=== PATIENT | female | born 1965 | race Caucasian/White ===

== ENCOUNTER 2019-08-26 08:46 | Outpatient (CLI) | payer OTHER, SELFPAY ==
--- NOTE | ~2019-08-26 | MM_ITS ---
EXAMINATION: MM screening [facility] BI w terri HISTORY: Screening mammogram TECHNIQUE: Craniocaudal and mediolateral oblique 3-D tomosynthesis images were obtained and synthetic 2-D images were generated. CAD analysis was submitted and interpreted. COMPARISON: 08/14/2018, 07/08/2017, 07/04/2016 BREAST PARENCHYMAL COMPOSITION: The breasts are almost entirely fatty. FINDINGS: There is no evidence of suspicious mass, calcification, or architectural distortion to sugg est malignancy in either breast. There has been no suspicious interval change. IMPRESSION: 1. No mammographic evidence of malignancy. 2. Recommend routine screening mammography in one year. 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 [employer]
== END 2019-08-26 08:47 | disposition home or self-care (01) ==
PROVIDERS: PCP Family Medicine; Visit Provider Obstetrics & Gynecology
DX: Z12.31 Encounter for screening mammogram for malignant neoplasm of breast (principal)
CPT/HCPCS: 77063; 77067

== ENCOUNTER 2019-09-03 11:17 | Emergency (ER) | payer OTHER, SELFPAY ==
[2019-09-03 11:53] VITALS: BP 109/63; PULSE 66; RESP 20; TEMP 37.2; O2SAT 98
--- NOTE | 2019-09-03 12:34 | ED.URI ---
HPI - URI/Sore Throat General Chief Complaint: Upper Respiratory Infection Stated Complaint: Cold/Flu symptoms Time Seen by Provider: 09/03/19 12:34 Source: patient Mode of arrival: ambulatory History of Present Illness HPI Narrative: Patient presents with a 3-day history of nasal congestion cough fever generalized body aches. Patient states her grandson had influenza A 5 days ago is worried that she may have the flu. No shortness of breath no chest pain. Patient has not taken thing [id number] for symptoms. Patient states she is a normally healthy individual. MD elicited complaint: fever, cough and nasal congestion Related Data Home Medications Medication Instructions Recorded Confirmed aspirin [Adult Low Dose Aspirin] 81 mg PO DAILY 05/12/19 09/03/19 clonazepam [Klonopin] 1 mg PO BID 05/12/19 05/12/19 estradiol 2 mg PO DAILY 05/12/19 09/03/19 flecainide 100 mg PO Q12H 05/12/19 09/03/19 magnesium 500 mg PO DAILY 05/12/19 09/03/19 alprazolam [Xanax] 1 mg PO TID PRN 09/03/19 09/03/19 Allergies Allergy/AdvReac Type Severity Reaction Status Date / Time azithromycin [From Zithromax] AdvReac Other Verified 09/03/19 11:50 Review of Systems Review of Systems: Narrative: CONSTITUTIONAL: Denies chills, or sweats. Reports fever and generalized body aches EYES: Denies visual changes, redness, or discharge. ENT: Denies otalgia. Reports nasal congestion runny nose and sore throat CARDIOVASCULAR: Denies chest pain, palpitations, or edema. RESPIRATORY: Denies dyspnea. Reports occasional cough GASTROINTESTINAL: Denies abdominal pain, nausea, vomiting, or diarrhea. GENITOURINARY: Denies dysuria or hematuria. SKIN: Denies rash or itching. MUSCULOSKELETAL: Denies back pain, joint pain, or myalgia. Reports generalized body aches NEUROLOGIC: Denies headache, numbness, or weakness. PSYCHIATRIC: Denies anxiety or depression. [facility] Social History Social History Smoking status: Never smoker Alcohol intake: never Comments At time of signature, agree with nursing past medical, surgical, social and family history. There is no relevant family history pertinent to the presenting complaint Exam Narrative: Exam Narrative: GENERAL APPEARANCE: The patient is a well-developed, well-nourished , in no acute distress. SKIN: Skin is warm and dry without erythema, swelling or exudate. There is good turgor. No tenting. HEAD: Atraumatic. Normocephalic. No temporal or scalp tenderness. EYES: Moist and bright. Sclera and conjunctivae normal. No discharge. PERRLA. Extraocular motions intact. Gross visual acuity intact. EARS: Pinna is normal shape and contour. Clear external auditory canals. TM pearly soliz with good cone of light, no erythema or suppuration. Bilateral cerumen noted no gross hearing deficit. NOSE: pink, moist mucosa with good air movement. Clear rhinorrhea without nasal flaring. Septum midline. Mouth: moist mucous membranes. THROAT; mild erythema noted to posterior oropharynx with moderate postnasal drainage. Without exudate or ulceration.. Uvula midline. Normal movement of soft palate. NECK: Supple and nontender with full range of motion without discomfort. No meningeal signs. LUNGS: Equal and bilateral breath sounds without wheezes, rales or rhonchi. CHEST: The chest wall is without retractions or use of accessory muscles. HEART: Has a regular rate and rhythm without murmur, gallops, click or rub. ABDOMEN: Soft, nontender with positive active bowel sounds. No rebound tenderness. EXTREMITIES: Without cyanosis, clubbing or edema. Equal 2+ distal pulses and 2 second capillary refill noted. NEUROLOGIC: alert, active, developmentally normal for age. The patient moves all extremities with normal muscle strength. Normal muscle tone is noted. Normal coordination is noted. NO focal neurological findings noted. Course Vital Signs Vital signs: Vital Signs Temperature 37.2 C 09/03/19 1
== END 2019-09-03 13:20 | disposition home or self-care (01) ==
PROVIDERS: Emergency Provider Nurse Practitioner Family; PCP Family Medicine
DX: B34.9 Viral infection, unspecified (principal); J06.9 Acute upper respiratory infection, unspecified; F41.9 Anxiety disorder, unspecified
CPT/HCPCS: 87804; 99213; G0463

== ENCOUNTER 2020-02-05 12:59 | Emergency (ER) | payer OTHER, SELFPAY ==
--- NOTE | ~2020-02-05 | CT_ITS ---
EXAMINATION: CT abdomen pelvis wo con EXAM DATE: 02/05/2020 13:53 INDICATION: Right flank pain, hematuria. TECHNIQUE: Spiral CT of the abdomen and pelvis was performed without contrast. Axial, coronal and sag ittal images were reviewed. The dose-length product (DLP) for this examination was 176.76 mGy-cm. T he exposure was tailored according to patient size (auto mA exposure control), and iterative reconstr uction (ASIR) was used as additional dose reduction technique. Comparison is made to prior examinatio n from 10/27/2017. FINDINGS: There is no nephrolithiasis or hydronephrosis. The uterus is not identified and has likel y been surgically resected. The bladder is unremarkable. The liver, spleen, adrenal glands and panc reas are unremarkable. Gallbladder is unremarkable. No biliary obstruction. There is no retroperit mcneil or pelvic lymphadenopathy. The appendix is normal. There is mild sigmoid colonic diverticulosis. There is no adjacent inflammat ory change to suggest diverticulitis. The stomach and small bowel are unremarkable. There is expecte d amount of colonic stool. No free intraperitoneal gas. The heart is normal in size. There are n o pericardial or pleural effusions. The lung bases are unremarkable. The bones are unremarkable. IMPRESSION: 1. No nephrolithiasis, hydronephrosis or acute intra-abdominal findings. 2. Mild sigmoid diverticulosis. Reviewed, dictated and finalized at location A.
[2020-02-05 13:03] VITALS: BP 118/65; PULSE 94; RESP 18; TEMP 36.8; O2SAT 98
[2020-02-05 13:57] LABS: Basophils Percent Auto 0.5 % (0.2-1.2); Eosinophils Absolute Auto 0.1 K/mm3 (0-0.3); Eosinophils Percent Auto 1.2 % (0-4.4); Hematocrit 41.7 % (37.0-47.0); Hemoglobin 13.7 g/dL (12.0-15.0); Immature Granulocyte Absolute 0.01 K/mm3 (0.00-0.031); Immature Granulocyte Percent A 0.2 % (0-0.5); Lymphocytes Absolute Auto 2.01 K/mm3 (0.9-3.2); Lymphocytes Percent Auto 33.1 % (18.3-44.2); Mean Corpuscular HGB Conc 32.9 g/dl (32-36); Mean Corpuscular Hemoglobin 30.2 pg (26-34); Mean Corpuscular Volume 91.9 fl (80-100); Mean Platelet Volume 9.6 fl (7.4-10.4); Monocytes Absolute Auto 0.4 K/mm3 (0.1-0.6); Monocytes Percent Auto 7.2 % (2.6-8.5); Neutrophils Absolute Auto 3.5 K/mm3 (1.3-6.7); Neutrophils Percent Auto 57.8 % (45.5-73.1); Platelet Count Result 242 k/mm3 (150-375); Red Blood Count 4.54 M/mm3 (4.2-5.4); Red Cell Distribution Width 12.3 % (11.5-14.5); White Blood Count 6.1 K/mm3 (4.5-10.0)
[2020-02-05 14:04] LABS: Add Urine Microscopic? NO; Appearance Urine Clear (Clear); Bilirubin Urine Negative (Negative); Blood Urine Negative (Negative); Color Urine Straw (Yellow); Glucose Urine UA Negative (Negative); Ketones Urine Negative (Negative); Leukocyte Esterase Ur Negative LEU/UL (Negative); Nitrate Urine Negative (Negative); Protein Urine Negative (Negative); RBC Urine 0-2 /hpf (0-2); Squamous Epithelial Cell Urine Many /hpf (Few); Urobilinogen Urine Negative mg/dL (<2.0); WBC Urine 0-3 /hpf
[2020-02-05 14:11] LABS: Alanine Aminotransferase 19 U/L (4-35); Albumin Level 4.4 g/dL (3.5-5.1); Alkaline Phosphatase 61 U/L (38-126); Anion Gap 10.1 mmol/L (7-16); Aspartate Amino Transferase 30 U/L (14-36); Bilirubin,Total 0.4 mg/dL (0.2-1.3); Blood Urea Nitrogen 16 mg/dL (7-17); Calcium 9.4 mg/dL (8.4-10.2); Carbon Dioxide 30 mmol/L (22-30); Chloride 100 mmol/L (98-107); Estimated CRCL calculation 69 ml/min; Estimated Glomerular Filt Rate > 60; Glucose 92 mg/dL (65-105); Potassium 4.1 mmol/L (3.4-5.0); Sodium 136 mmol/L (137-145)
--- NOTE | 2020-02-05 14:40 | ED.GENADULT ---
HPI - General Adult General Chief complaint: Back Pain/Injury Stated complaint: back pain/urinating blood Time Seen by Provider: 02/05/20 13:35 Source: patient Mode of arrival: ambulatory Limitations: no limitations History of Present Illness HPI narrative: Patient presents with chief complaint of right flank pain and 4 episodes of blood in her urine that began yesterday. Patient states that she did not note any signs of blood in her urine prior to arrival. Patient states that she was moving at work and noticed the pain to her right side and with twisting and turning. Patient denies having a history of kidney stones. Patient reports that she has had a hysterectomy so she no longer has menstrual cycles. Patient denies fever, chills, nausea, vomiting, diarrhea or cough. Patient denies eating or drinking anything that she believes could have caused her symptoms. Patient denies taking Azo or any new medications that could affect her urine color. Related Data Home Medications Medication Instructions Recorded Confirmed aspirin [Adult Low Dose Aspirin] 81 mg PO DAILY 05/12/19 09/03/19 estradiol 2 mg PO DAILY 05/12/19 09/03/19 flecainide 100 mg PO Q12H 05/12/19 09/03/19 magnesium 500 mg PO DAILY 05/12/19 09/03/19 alprazolam [Xanax] 1 mg PO TID PRN 09/03/19 09/03/19 clonazepam 1 mg tablet 1.5 mg PO BID tablet 09/08/19 Allergies Allergy/AdvReac Type Severity Reaction Status Date / Time azithromycin [From Zithromax] AdvReac Other Verified 02/05/20 13:36 Review of Systems Review of Systems: Narrative: CONSTITUTIONAL: Denies fever, chills, or sweats. EYES: Denies visual changes, redness, or discharge. ENT: Denies rhinorrhea, congestion, sore throat, or otalgia. CARDIOVASCULAR: Denies chest pain, palpitations, or edema. RESPIRATORY: Denies cough or dyspnea. GASTROINTESTINAL: Denies abdominal pain, nausea, vomiting, or diarrhea. GENITOURINARY: Denies dysuria reports resolved hematuria. SKIN: Denies rash or itching. MUSCULOSKELETAL: Reports back pain, denies joint pain, or myalgia. NEUROLOGIC: Denies headache, numbness, dizziness, or weakness. PSYCHIATRIC: Denies anxiety or depression. PMFSH Past Medical History Medical History (Updated 02/05/20 @ 14:45 by Vasu Li PA-C) Anal skin tag Chronic insomnia Depression Diverticulosis PARISH (generalized anxiety disorder) Social History Social History (Updated 09/08/19 @ 09:36 by Nancie Alvares [facility]) Smoking status: Current every day smoker Tobacco type: e-cigarettes/vaping Alcohol intake: never Substance use: never Exam Narrative: Exam Narrative: GENERAL: Well-appearing, well-nourished, and in no acute distress. HEAD: Normocephalic, atraumatic. EYES: PERRLA and EOMI. ENT: Nares clear, no rhinorrhea or epistaxis. Mucous membranes moist. Oropharynx without tonsillar hypertrophy exudate or other lesions. Bilateral TMs pearly mancera nonbulging NECK: Supple. No adenopathy or masses. CHEST: Clear to auscultation. No respiratory distress. No wheezes rales or rhonchi HEART: Regular rate and rhythm. ABDOMEN: Soft, nontender, nondistended, normal active bowel sounds. BACK: Pain elicited with manipulation of right lumbar paraspinal muscles. No outward signs of injury. EXTREMITIES: normal range of motion. No edema. SKIN: Warm, dry, no rash. NEURO: No focal deficits. Alert and oriented x3. PSYCH: Normal mood and affect. Course Vital Signs Vital signs: Vital Signs Temperature 98.2 F 02/05/20 13:03 Pulse Rate 94 02/05/20 13:03 Respiratory Rate 18 02/05/20 13:03 Blood Pressure 118/65 02/05/20 13:03 Pulse Oximetry 98 02/05/20 13:03 Temperature 97.7 F 02/05/20 15:29 Pulse Rate 55 L 02/05/20 15:29 Respiratory Rate 18 02/05/20 15:29 Blood Pressure 88/53 L 02/05/20 15:29 Pulse Oximetry 98 02/05/20 15:29 Medical Decision Making MDM Narrative Medical decision making narrative: There is no signs of bladder infection in patient's uri
[2020-02-05 15:29] VITALS: BP 88/53; PULSE 55; RESP 18; TEMP 36.5; O2SAT 98
== END 2020-02-05 15:31 | disposition home or self-care (01) ==
PROVIDERS: Physician Assistant; Emergency Provider Emergency Medicine; PCP Family Medicine
DX: S39.012A Strain of muscle, fascia and tendon of lower back, initial encounter (principal); F51.04 Psychophysiologic insomnia; F32.9 Major depressive disorder, single episode, unspecified; F41.1 Generalized anxiety disorder; K57.30 Diverticulosis of large intestine without perforation or abscess without bleeding; X58.XXXA Exposure to other specified factors, initial encounter
CPT/HCPCS: 36415; 74176; 80053; 81003; 85025; 99284

== ENCOUNTER 2020-04-20 08:03 | Outpatient (NON) | payer OTHER, SELFPAY ==
[2020-04-20 18:25] LABS: SARS-CoV-2 RNA PCR Negative
== END 2020-04-20 08:04 ==
PROVIDERS: PCP Family Medicine; Visit Provider Family Medicine
DX: R53.83 Other fatigue (principal); R19.7 Diarrhea, unspecified; Z20.828 Contact with and (suspected) exposure to other viral communicable diseases
CPT/HCPCS: 87635; C9803; U0003

== ENCOUNTER 2020-08-27 08:41 | Outpatient (CLI) | payer OTHER, SELFPAY ==
--- NOTE | ~2020-08-27 | MM_ITS ---
EXAMINATION: MM screening [facility] BI w terri HISTORY: Screening mammogram TECHNIQUE: Craniocaudal and mediolateral oblique 3-D tomosynthesis images were obtained and synthetic 2-D images were generated. CAD analysis was submitted and interpreted. COMPARISON: 08/26/2019, 08/14/2018, 07/25/2017 BREAST PARENCHYMAL COMPOSITION: The breasts are almost entirely fatty. FINDINGS: There is no evidence of suspicious mass, calcification, or architectural distortion to sugg est malignancy in either breast. There has been no suspicious interval change. IMPRESSION: 1. No mammographic evidence of malignancy. 2. Recommend routine screening mammography in one year. 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
== END 2020-08-27 08:42 | disposition home or self-care (01) ==
PROVIDERS: PCP Family Medicine; Visit Provider Obstetrics & Gynecology
DX: Z12.31 Encounter for screening mammogram for malignant neoplasm of breast (principal)
CPT/HCPCS: 77063; 77067

== ENCOUNTER 2020-11-20 10:16 | Outpatient (CLI) | payer OTHER, SELFPAY ==
--- NOTE | ~2020-11-20 | XR_ITS ---
EXAMINATION: XR abdomen/kub 1V INDICATION: Constipation, unspecified TECHNIQUE: Supine views of the abdomen were obtained on 2 radiographs. COMPARISON: None FINDINGS: There are no dilated loops of bowel. A moderate volume of colonic stool is present. There i s mild lumbar spondylosis. The visualized lung bases are clear. IMPRESSION: 1. Constipation. Reviewed, dictated and finalized at location A. IMPRESSION: 1. Constipation.
== END 2020-11-20 10:17 ==
PROVIDERS: PCP Family Medicine; Visit Provider Family Medicine
DX: K59.00 Constipation, unspecified (principal)
CPT/HCPCS: 74018

== ENCOUNTER 2020-11-27 10:49 | Outpatient (CLI) | payer OTHER, SELFPAY ==
--- NOTE | ~2020-11-27 | CT_ITS ---
EXAMINATION: CT abdomen pelvis w con DATE: 11/27/2020 11:21 INDICATION: Abdominal pain. Constipation. TECHNIQUE: Computed tomography (CT) of the abdomen and pelvis was performed with 100 mL Omnipaque 350 intravenous contrast. Automated exposure control and iterative reconstruction technique were employe d. The dose-length product was 325.64 mGy-cm. COMPARISON: CT abdomen and pelvis 02/05/2020 FINDINGS: The visualized portions of the lung bases demonstrate mild atelectasis. No pleural effusion . The heart size is normal. No pericardial effusion. The liver, gallbladder, spleen, pancreas, adrena l glands, and kidneys are normal. There are no dilated loops of bowel. The appendix is normal. There are no pathologically enlarged lymph nodes. There is no free intraperitoneal fluid. There is mild lum bar spondylosis. IMPRESSION: 1. No etiology for the patient's symptoms. Reviewed, dictated and finalized at location B.
[2020-11-27 11:48] LABS: Basophils Percent Auto 0.8 % (0.2-1.2); Eosinophils Absolute Auto 0.1 K/mm3 (0-0.3); Eosinophils Percent Auto 2.3 % (0-4.4); Hematocrit 41.8 % (37.0-47.0); Hemoglobin 13.5 g/dL (12.0-15.0); Immature Granulocyte Absolute 0.01 K/mm3 (0.00-0.031); Immature Granulocyte Percent A 0.2 % (0-0.5); Lymphocytes Absolute Auto 2.15 K/mm3 (0.9-3.2); Lymphocytes Percent Auto 44.6 % (18.3-44.2); Mean Corpuscular HGB Conc 32.3 g/dl (32-36); Mean Corpuscular Hemoglobin 29.9 pg (26-34); Mean Corpuscular Volume 92.7 fl (80-100); Mean Platelet Volume 9.3 fl (7.4-10.4); Monocytes Absolute Auto 0.5 K/mm3 (0.1-0.6); Monocytes Percent Auto 9.5 % (2.6-8.5); Neutrophils Absolute Auto 2.1 K/mm3 (1.3-6.7); Neutrophils Percent Auto 42.6 % (45.5-73.1); Platelet Count Result 258 k/mm3 (150-375); Red Blood Count 4.51 M/mm3 (4.2-5.4); Red Cell Distribution Width 12.1 % (11.5-14.5); White Blood Count 4.8 K/mm3 (4.5-10.0)
[2020-11-27 12:13] LABS: Alanine Aminotransferase 19 U/L (4-35); Albumin Level 4.2 g/dL (3.5-5.1); Alkaline Phosphatase 49 U/L (38-126); Amylase 60 U/L (30-110); Anion Gap 6 mmol/L (8-16); Aspartate Amino Transferase 34 U/L (14-36); Bilirubin,Total 0.2 mg/dL (0.2-1.3); Blood Urea Nitrogen 10 mg/dL (7-17); Carbon Dioxide 29 mmol/L (22-30); Chloride 104 mmol/L (98-107); Estimated Glomerular Filt Rate > 60; Glucose 93 mg/dL (65-105); Lipase 116 U/L (23-300); Potassium 4.3 mmol/L (3.4-5.0); Sodium 139 mmol/L (137-145)
== END 2020-11-27 10:50 | disposition home or self-care (01) ==
PROVIDERS: PCP Family Medicine; Visit Provider Physician Assistant
DX: R10.9 Unspecified abdominal pain (principal); K59.00 Constipation, unspecified
CPT/HCPCS: 36415; 74177; 80053; 82150; 83690; 84443; 85025; Q9967

== ENCOUNTER → 2020-11-29 01:48 | Outpatient (CLI) | payer OTHER, SELFPAY ==
[2020-11-29 17:40] LABS: SARS-CoV-2 RNA PCR Negative
== END ==
PROVIDERS: PCP Family Medicine; Visit Provider Obstetrics & Gynecology
DX: Z01.812 Encounter for preprocedural laboratory examination (principal); Z20.822 Contact with and (suspected) exposure to COVID-19
CPT/HCPCS: C9803; U0003; U0005

== ENCOUNTER 2020-11-29 07:41 | Outpatient (CLI) | payer OTHER, SELFPAY | END 2020-11-29 07:42 | disposition home or self-care (01) | LOC: ANHSURGERY 07:44 | PROVIDERS: PCP Family Medicine; Visit Provider Obstetrics & Gynecology | DX: Z01.812 Encounter for preprocedural laboratory examination (principal); N83.209 Unspecified ovarian cyst, unspecified side | CPT/HCPCS: 36415; 86850; 86900; 86901 ==

== ENCOUNTER 2020-11-30 01:26 | Day surgery (SDC) | payer OTHER, SELFPAY ==
[2020-11-28 14:03] VITALS: BMI 22.7
--- NOTE | 2020-11-29 12:39 | PM.IMHP ---
H&P: HPI History of Present Illness Date/Time: 11/29/20 12:39 55-year-old female status post cyst an RSO admitted for laparoscopic LSO. She has pain discomfort and dyspareunia. She had a CT which was negative but her pain is directly under left ovary. She is postmenopausal. Risks and benefits of this procedure reviewed in full Chief Complaint: pelvic pain Review of Systems Review of Systems: All systems reviewed & are unremarkable except as noted in HPI and below PMFSH Past Medical History Medical History Anal skin tag Chronic insomnia Depression Diverticulosis PARISH (generalized anxiety disorder) Social History Social History Smoking status: Current every day smoker Tobacco type: e-cigarettes/vaping Second hand tobacco smoke exposure: No Alcohol intake: never Substance use: never Substance use type: does not use Gender identity (if verbalized by the patient): Female Spiritual care concerns: No Meds Home Medications and Allergies Home Medications Medication Instructions Recorded Confirmed Type aspirin [Adult Low Dose Aspirin] 81 mg PO DAILY 05/12/19 11/28/20 History estradiol 2 mg PO DAILY 05/12/19 11/28/20 History flecainide 100 mg PO BID 05/12/19 11/28/20 History magnesium 500 mg PO DAILY 05/12/19 11/28/20 History alprazolam [Xanax] 1 mg PO TID PRN 09/03/19 11/28/20 History loratadine [Claritin] 10 mg PO DAILY 14 Days #14 tablet 09/03/19 11/28/20 Rx clonazepam 1 mg tablet 1.5 mg PO HS tablet 09/08/19 11/28/20 History multivitamin 1 tablet PO DAILY 11/28/20 11/28/20 History polyethylene glycol 3350 [Miralax] 17 g PO DAILY 11/28/20 11/28/20 History Allergies Allergy/AdvReac Type Severity Reaction Status Date / Time azithromycin [From Zithromax] AdvReac Other Verified 11/28/20 14:00 Exam Const: General: no acute distress Eyes: General: appearance normal, both eyes and all related structures Neck: Neck: supple and no JVD Thyroid: thyroid normal Resp: Effort & Inspection: normal respiratory effort Auscultation: clear to auscultation bilaterally Cardio: Rate: regular rate Rhythm: regular rhythm GI: Inspection: non-distended GI Palp: Yes Soft to palpation, No Tenderness to palpation present (GI) and No Guarding due to palpation present (GI) Auscultation: normal bowel sounds : External Female Exam: normal external appearance Speculum Exam - Vagina: normal appearance of the vagina Speculum Exam - Cervix: Cervix absent Bimanual exam- vagina & uterus: uterus absent Bimanual Exam- Adnexa, other: tender on the left Skin: General skin exam: no rashes or lesions noted Extrem: General: normal to inspection and no edema Psych: Mental Status: mental status grossly normal Affect: normal affect Assessment and Plan Additional Plan impression: Pelvic pain Plan: Laparoscopic LSO
[2020-11-30] VITALS (7 sets, daily range): BP systolic 98–129; BP diastolic 54–69; PULSE 63–80; RESP 11–16; TEMP 36.5–36.6; O2SAT 100; BMI 23.5
--- NOTE | 2020-11-30 06:28 | WPDHPUPDATE1 ---
History and Physical Update Update Date/Time: 11/30/20 06:28 History and Physical has been reviewed, including an updated exam of the patient. There are NO changes in the patient's condition. Risks, benefits, and alternatives have been discussed and questions answered. Patient agrees to proceed with procedure.
--- NOTE | 2020-11-30 13:13 | WPDANESEPPF ---
Anes - Initial Pre Proc Eval Procedure: Operation Date: 11/30/20 14:45 Proposed Procedures p Diagnostic Laparoscopy With Left Salpingo Oophorectomy - Michael Macdonald MD Date/Time: 11/30/20 13:13 Surgeon: Michael Macdonald MD Pre Op Diagnosis: pelvic pain, left ovarian cyst Patient Data Age: 55 Gender: F Height: 5 ft 6.5 in Weight: 64.86 kg Allergies Allergy/AdvReac Type Severity Reaction Status Date / Time azithromycin [From Zithromax] AdvReac Other Verified 11/28/20 14:00 Home Medications Medication Instructions Recorded Confirmed Type aspirin [Adult Low Dose Aspirin] 81 mg PO DAILY 05/12/19 11/30/20 History estradiol 2 mg PO DAILY 05/12/19 11/30/20 History flecainide 100 mg PO BID 05/12/19 11/30/20 History magnesium 500 mg PO DAILY 05/12/19 11/30/20 History alprazolam [Xanax] 1 mg PO TID PRN 09/03/19 11/30/20 History loratadine [Claritin] 10 mg PO DAILY 14 Days #14 tablet 09/03/19 11/30/20 Rx clonazepam 1 mg tablet 1.5 mg PO HS tablet 09/08/19 11/30/20 History multivitamin 1 tablet PO DAILY 11/28/20 11/30/20 History polyethylene glycol 3350 [Miralax] 17 g PO DAILY 11/28/20 11/28/20 History hydrocodone-acetaminophen 1 tablet PO Q4H PRN #30 tablet 11/30/20 Rx Patient hx anesthesia problems: none Family hx anesthesia problems: none PMFSH Past Medical History Medical History Anal skin tag Chronic insomnia Depression Diverticulosis PARISH (generalized anxiety disorder) Social History Social History Smoking status: Current every day smoker Tobacco type: e-cigarettes/vaping Second hand tobacco smoke exposure: No Alcohol intake: never Substance use: never Substance use type: does not use Living arrangements: with family Gender identity (if verbalized by the patient): Female Spiritual care concerns: No Anes - Eval Final PreProcedure Day of Procedure 11/30/20 13:13 Patient weight: normal Heart: regular rate and rhythm Lungs: clear to auscultation Airway: Mallampati scale class II Neurological: alert and oriented Last oral intake: >/= 8 hours ASA classification: III Emergent: no Anesthetic plan: proceed Anesthesia type and monitoring: general ETT and standard monitoring Informed Consent: The patient's anesthetic plan and its attendant risks and benefits were discussed with the patient/family/POA. Questions were solicited and answers provided to the satisfaction of the patient/family/POA.
[2020-11-30] MEDS: ACETAMINOPHEN 500 MG TABLET 1000 MG PO (13:18)
[2020-11-30] MEDS: LACTATED RINGERS 1,000 ML 30 ML IV CONT ×2 (13:29→14:33)
[2020-11-30] MEDS: KETOROLAC 15 MG/ML VIAL (*BKC) IV PUSH (13:30)
--- NOTE | 2020-11-30 14:25 | P.OP_ITS ---
Procedure Note - Detailed Date of procedure: 11/30/20 Pre-op diagnosis: pelvic pain, left ovarian cyst Surgeon: Michael Macdonald MD Postop diagnosis: Pelvic pain/left ovarian cyst/adhesions Procedure: Laparoscopic left salpingo-oophorectomy and lysis of adhesions Anesthesia: General endotracheal EBL: 5cc Findings: Left ovarian cyst. Adhesions from the colon to the left lateral sidewall and the vaginal cuff. Absent uterus ovary and right tube. Normal- appearing gallbladder and liver edge Complications: None Description of procedure: The patient was prepped and draped in the normal sterile fashion and placed in the dorsal lithotomy position. Under excellent general endotracheal anesthesia sponge stick was placed in the vagina and the bladder drained of clear urine. Weighted speculum was removed and gloves were changed. An infraumbilical incision made the Veress needle passed in the abdomen. The abdomen was filled with CO2 gas [id number]. The 5mm trocar inserted directly into the abdomen on the and no injury seen. The gas was reattached and the patient placed in Trendelenburg. A suprapubic incision made the 5mm trocar advanced under direct visualization. No injury seen. The left lower quadrant incision made in the 8mm trocar advanced under direct visualization assuring no injury. The left ovarian cyst was noted. Multiple adhesions were seen to the abdominal sidewall and the vaginal cuff. These were sharply dissected using the LigaSure. The infundibulopelvic structure was then skeletonized. This was clamped, burned, cut. This was placed in an Endo-Catch and removed through the left lower quadrant. Irrigation undertaken until clear. All pedicles appeared dry. The lower site removed. The gas was removed from the abdomen. The upper site removed. The incisions closed with 4 Monocryl and glue. Instruments removed from the vagina. All sponge, needle, instrument counts were correct. There were no immediate complications
[2020-11-30] MEDS: fentaNYL CITRATE INJ (*CRX) 100 MCG/2 ML VIAL 25 MCG IV PUSH ×2 (14:52→14:59)
[2020-11-30] MEDS: ONDANSETRON INJ 4 MG/2 ML VIAL IV PUSH (15:05)
--- NOTE | 2020-11-30 15:52 | SUR.PHASEII ---
RN went to give benadryl and apply scop patch and patient refused at this time.
== END 2020-11-30 16:18 | disposition home or self-care (01) ==
PROVIDERS: PCP Family Medicine; Visit Provider Obstetrics & Gynecology
PROC: (CPT 49320; principal; 2020-11-30 14:45)
DX: R10.2 Pelvic and perineal pain (principal); N83.202 Unspecified ovarian cyst, left side; N73.6 Female pelvic peritoneal adhesions (postinfective); D64.9 Anemia, unspecified; F41.1 Generalized anxiety disorder; F32.9 Major depressive disorder, single episode, unspecified; F17.290 Nicotine dependence, other tobacco product, uncomplicated
CPT/HCPCS: 58661; 36415; 86850; 86900; 86901; 88305; A9270; C9803; J0330; J1100; J1885; J2250; J2405; J2704; J3010; J7120; U0003; U0005

== ENCOUNTER 2021-03-02 08:03 | Emergency (ER) | payer OTHER, SELFPAY ==
--- NOTE | ~2021-03-02 | XR_ITS ---
EXAMINATION: XR wrist RT min 3V DATE: 03/02/2021 08:30 INDICATION: Tenderness and swelling at the ulnar side of the wrist TECHNIQUE: Posteroanterior, ulnar deviation, oblique, and lateral views of the right wrist were obtai maile. 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 Additional mild osteoarthritis at the first carpal metacarpal and fir st interphalangeal joint. There is prominent soft tissue swelling along the ulnar side of the wrist o verlying the ECU groove. IMPRESSION: 1. 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 2. Soft tissue swelling at the ulnar side of the wrist. No acute osseous abnormality. Reviewed, dictated and finalized at location A. IMPRESSION: 1. 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 2. Soft tissue swelling at the ulnar side of the wrist. No acute osseous abnorm ality.
[2021-03-02 08:06] VITALS: BP 138/63; PULSE 67; RESP 14; TEMP 36; O2SAT 95
[2021-03-02] MEDS: ONDANSETRON HCL ODT 4 MG TABLET PO (08:26)
--- NOTE | 2021-03-02 08:28 | ED.UPPEXIN ---
HPI - Extremity Injury (Upper) General Chief Complaint: Extremity Injury, Upper Stated Complaint: right wrist injury Time Seen by Provider: 03/02/21 08:05 Source: patient and RN notes reviewed Mode of arrival: ambulatory Limitations: no limitations History of Present Illness HPI narrative: This is a 55 year old female who presents for evaluation of right wrist injury. Patient states she fell approximately 45 minutes and she tried to catch herself with her right wrist. She has right wrist pain and swelling. She reports history of previous right wrist fracture, and she has chronic fracture to that wrist. She denies hitting her head or LOC. She also denies neck pain. She took Tylenol 1300 mg prior to arrival. Related Data Home Medications Medication Instructions Recorded Confirmed aspirin [Adult Low Dose Aspirin] 81 mg PO DAILY 05/12/19 11/30/20 estradiol 2 mg PO DAILY 05/12/19 11/30/20 flecainide 100 mg PO BID 05/12/19 11/30/20 magnesium 500 mg PO DAILY 05/12/19 11/30/20 alprazolam [Xanax] 1 mg PO TID PRN 09/03/19 11/30/20 clonazepam 1 mg tablet 1.5 mg PO HS tablet 09/08/19 11/30/20 multivitamin 1 tablet PO DAILY 11/28/20 11/30/20 polyethylene glycol 3350 [Miralax] 17 g PO DAILY 11/28/20 11/28/20 Allergies Allergy/AdvReac Type Severity Reaction Status Date / Time azithromycin [From Zithromax] AdvReac Other Verified 03/02/21 08:47 Review of Systems Review of Systems: All systems reviewed & are unremarkable except as noted in HPI and below PMFSH Past Medical History Medical History (Updated 03/02/21 @ 09:20 by Tata Miller MD) Anal skin tag Chronic insomnia Depression Diverticulosis PARISH (generalized anxiety disorder) Surgical History Surgical History (Updated 03/02/21 @ 09:17 by Tata Miller MD) History of cardiac radiofrequency ablation History of loop recorder Social History Social History Smoking status: Current every day smoker Tobacco type: e-cigarettes/vaping Second hand tobacco smoke exposure: No Alcohol intake: never Substance use: never Substance use type: does not use Gender identity (if verbalized by the patient): Female Sexual Orientation (if Verbalized by the Patient): Straight or Heterosexual Spiritual care concerns: No Exam Const: General: no acute distress and alert Orientation/consciousness: patient oriented x3 Eyes: EOM: EOMs intact bilaterally Neck: Neck: normal visual inspection Resp: Effort & Inspection: normal respiratory effort Neuro: General: patient oriented x3, moves all extremities and CN's II-XI intact bilaterally Extrem: Other: right ulnar side wrist with swelling and bruising other daniel no other swelling. Painw with movement of wrist but able to move . neurovascularly intact Psych: Mental Status: mental status grossly normal Affect: normal affect Course Reevaluation(s) Reevaluation #1: I reviewed with patient xray findings of chronic fracture and she states she is aware of this . She request to be placed in splint for pain control. She denies declines narcotics. Date: 03/02/21 Time: 09:18 Vital Signs Vital signs: Vital Signs Temperature 96.8 F L 03/02/21 08:06 Pulse Rate 67 03/02/21 08:06 Respiratory Rate 14 03/02/21 08:06 Blood Pressure 138/63 03/02/21 08:06 Pulse Oximetry 95 03/02/21 08:06 Temperature 98.1 F 03/02/21 09:47 Pulse Rate 55 L 03/02/21 09:47 Respiratory Rate 16 03/02/21 09:47 Blood Pressure 81/51 L 03/02/21 09:47 Pulse Oximetry 100 03/02/21 09:47 MDM - Extremity Injury (Upper) Imaging Data Radiologist's impression: ITS Impressions Wrist X-Ray 03/02/21 08:33 IMPRESSION: 1. 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 2. Soft tissue swelling at the ulnar side of the wrist. No acu
[2021-03-02 09:47] VITALS: BP 81/51; PULSE 55; RESP 16; TEMP 36.7; O2SAT 100
== END 2021-03-02 09:50 | disposition home or self-care (01) ==
PROVIDERS: Emergency Provider General Practice; PCP Family Medicine
DX: S63.501A Unspecified sprain of right wrist, initial encounter (principal); S62.0 Fracture of navicular [scaphoid] bone of wrist; M19.031 Primary osteoarthritis, right wrist; F32.9 Major depressive disorder, single episode, unspecified; F41.1 Generalized anxiety disorder; Z79.82 Long term (current) use of aspirin; F17.290 Nicotine dependence, other tobacco product, uncomplicated; W18.09XA Striking against other object with subsequent fall, initial encounter; X58.XXXS Exposure to other specified factors, sequela
CPT/HCPCS: 73110; 99283; A4565; A9270

== ENCOUNTER 2021-09-02 11:11 | Emergency (ER) | payer OTHER, SELFPAY ==
--- NOTE | 2021-09-02 11:14 | ED.URI ---
HPI - URI/Sore Throat General Chief Complaint: Upper Respiratory Infection Stated Complaint: Sore Throat/Fever Time Seen by Provider: 09/02/21 11:14 Source: patient and RN notes reviewed History of Present Illness HPI Narrative: Patient is a 56-year-old female who presents the urgent care with complaints of sore throat, lethargy and chills. Patient states that it started yesterday morning and now she feels worse after being at the gym for 2 hours today. Patient states that she did have Covid in the past and has been COVID vaccinated. Denies any recent ill contacts. Denies any nausea, vomiting, shortness of breath or cough. No other acute complaints. No acute distress noted. Patient aware of the plan of care. Some parts of this dictation were generated by voice recognition software and may contain typographical and/or grammatical inaccuracies. Related Data Home Medications Medication Instructions Recorded Confirmed aspirin [Adult Low Dose Aspirin] 81 mg PO DAILY 05/12/19 07/29/21 estradiol 2 mg PO DAILY 05/12/19 07/29/21 flecainide 100 mg PO BID 05/12/19 07/29/21 magnesium 500 mg PO DAILY 05/12/19 07/29/21 alprazolam [Xanax] 1 mg PO TID PRN 09/03/19 07/29/21 clonazepam 1 mg tablet 1.5 mg PO HS tablet 09/08/19 07/29/21 multivitamin 1 tablet PO DAILY 11/28/20 07/29/21 linaclotide [Linzess] 72 mcg PO DAILY 09/02/21 09/02/21 vilazodone [Viibryd] mg 09/02/21 Allergies Allergy/AdvReac Type Severity Reaction Status Date / Time azithromycin [From Zithromax] AdvReac Other Verified 09/02/21 11:35 Review of Systems Review of Systems: CONSTITUTIONAL: Denies fever. Reports of chills or lethargy with EYES: Denies visual changes, redness, or discharge. ENT: Denies rhinorrhea, congestion, otalgia. Reports of sore throat CARDIOVASCULAR: Denies chest pain, palpitations, or edema. RESPIRATORY: Denies cough or dyspnea. GASTROINTESTINAL: Denies abdominal pain, nausea, vomiting, or diarrhea. GENITOURINARY: Denies dysuria or hematuria. SKIN: Denies rash or itching. MUSCULOSKELETAL: Denies back pain, joint pain. Reports body aches NEUROLOGIC: Denies headache, numbness, or weakness. All other systems reviewed are negative, except as documented in HPI. FORMERLY [facility] Past Medical History Medical History Anal skin tag Chronic insomnia Depression Diverticulosis PARISH (generalized anxiety disorder) Surgical History Surgical History History of cardiac radiofrequency ablation History of loop recorder Social History Social History (Updated 07/29/21 @ 09:02 by Cintia Morales) Social History: Smoking status: Smoker, status unknown (Vapes) Tobacco type: e-cigarettes/vaping Second hand tobacco smoke exposure: No Alcohol intake: never Substance use: never Substance use type: does not use Gender identity (if verbalized by the patient): Female Sexual Orientation (if Verbalized by the Patient): Straight or Heterosexual Spiritual care concerns: No Comments At the time of my signature, I reviewed and agree with the nursing past medical, surgical, social, and family history. There is no relevant family history pertinent to the patient complaint. Exam Narrative: GENERAL: This is a well-nourished, well-developed patient, in no apparent distress. HEAD: normocephalic, atraumatic. EYES: PERRL. Sclera clear/white. Vision is grossly intact. EARS: External ears normal, auditory canals clear and without drainage, TMs normal without perforation. Hearing grossly intact. NOSE: External nose normal with no obvious nasal discharge, nares without redness, no rhinorrhea. THROAT: Mucous membranes moist. Mild erythema noted posterior oropharynx with moderate postnasal drainage NECK: Neck supple, non-tender without lymphadenopathy CARDIOVASCULAR: Regular rate and rhythm without murmurs, gallops, or rubs. RESPIRATORY: Clear to ausc
[2021-09-02 11:27] VITALS: BP 108/63; PULSE 73; RESP 14; TEMP 36.4; O2SAT 99
[2021-09-04 16:39] LABS: SARS-CoV-2 RNA PCR Negative
== END 2021-09-02 12:10 | disposition home or self-care (01) ==
PROVIDERS: Emergency Provider Nurse Practitioner Family; PCP Family Medicine
DX: J02.9 Acute pharyngitis, unspecified (principal); Z20.822 Contact with and (suspected) exposure to COVID-19; F32.A Depression, unspecified; F41.1 Generalized anxiety disorder
CPT/HCPCS: 87081; 87880; 99213; C9803; G0463; U0003; U0005

== ENCOUNTER 2021-10-29 07:56 | Outpatient (CLI) | payer OTHER, SELFPAY ==
--- NOTE | ~2021-10-29 | MM_ITS ---
EXAMINATION: MM screening [facility] BI w terri HISTORY: Screening TECHNIQUE: Craniocaudal and mediolateral oblique 3-D tomosynthesis images were obtained and synthetic 2-D images were generated. CAD analysis was submitted and interpreted. COMPARISON: Comparison to multiple prior studies sequentially, with oldest reviewed study dated 06/06. BREAST PARENCHYMAL COMPOSITION: There are scattered areas of fibroglandular density. FINDINGS: There is no evidence of suspicious mass, calcification, or architectural distortion to sugg est malignancy in either breast. There has been no suspicious interval change. IMPRESSION: 1. No mammographic evidence of malignancy. 2. Recommend routine screening mammography in one year. 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
== END 2021-10-29 07:57 | disposition home or self-care (01) ==
LOC: ANHIMG 07:59
PROVIDERS: PCP Family Medicine; Visit Provider Obstetrics & Gynecology
DX: Z12.31 Encounter for screening mammogram for malignant neoplasm of breast (principal)
CPT/HCPCS: 77063; 77067

== ENCOUNTER 2021-10-31 10:53 | Emergency (ER) | payer OTHER, SELFPAY ==
[2021-10-31 10:58] VITALS: BP 93/64; PULSE 82; RESP 16; TEMP 36.8; O2SAT 98
--- NOTE | 2021-10-31 11:08 | ED.URI ---
HPI - URI/Sore Throat General Chief Complaint: Upper Respiratory Infection Stated Complaint: Sore Throat/Ear Problem Time Seen by Provider: 10/31/21 11:12 Source: patient and RN notes reviewed Mode of arrival: ambulatory Limitations: no limitations History of Present Illness HPI Narrative: 56-year-old female presents with concern for 2-day history of right ear pain, painful swallowing, feeling dizzy and off balance when she stood up. She reports general malaise and body aches. She reports exposure to flu approximately a week and a half ago. She denies fever, chills, sweats. She denies [id number] intervention MD elicited complaint: sore throat and other Related Data Home Medications Medication Instructions Recorded Confirmed alprazolam [Xanax] 1 mg PO DAILY 10/31/21 10/31/21 clonazepam 1 mg PO BID 10/31/21 10/31/21 estradiol 2 mg PO DAILY 10/31/21 10/31/21 flecainide 100 mg PO Q12H 10/31/21 10/31/21 oxybutynin chloride 10 mg PO DAILY 10/31/21 10/31/21 vilazodone [Viibryd] 30 mg PO DAILY 10/31/21 10/31/21 Allergies Allergy/AdvReac Type Severity Reaction Status Date / Time azithromycin [From Zithromax] AdvReac Other Verified 09/02/21 11:35 Review of Systems Review of Systems: CONSTITUTIONAL: Reports malaise. Denies chills, sweats, or fever. EYES: Denies visual changes, redness, or discharge. ENT: Reports rhinorrhea, otalgia and sore throat. Denies congestion, sinus pain CARDIOVASCULAR: Denies chest pain, palpitations, or edema. RESPIRATORY: Reports cough. Denies dyspnea. GASTROINTESTINAL: Denies abdominal pain, nausea, vomiting, diarrhea SKIN: Denies rash or itching. MUSCULOSKELETAL: Reports myalgia. NEUROLOGIC: Denies headache. All systems reviewed & are unremarkable except as noted in HPI and below PMFSH Past Medical History Medical History Anal skin tag Chronic insomnia Depression Diverticulosis PARISH (generalized anxiety disorder) Surgical History Surgical History History of cardiac radiofrequency ablation History of loop recorder Social History Social History (Updated 07/29/21 @ 09:02 by Cintia Morales) Social History: Smoking status: Smoker, status unknown (Vapes) Tobacco type: e-cigarettes/vaping Second hand tobacco smoke exposure: No Alcohol intake: never Substance use: never Substance use type: does not use Gender identity (if verbalized by the patient): Female Sexual Orientation (if Verbalized by the Patient): Straight or Heterosexual Spiritual care concerns: No Comments At time of signature, agree with nursing past medical, surgical, social and family history. There is no relevant family history pertinent to the presenting complaint Exam Narrative: GENERAL: Well-appearing, well-nourished, and in no acute distress. HEAD: Normocephalic EYES: PERRLA, conjunctivae clear ENT: Nares clear, turbinates erythematous, clear discharge. Mucous membranes moist. TM pearly mancera with sharp light reflex bilaterally; no tragal tenderness. Oropharynx not erythematous without lesions. Tonsils not enlarged and without exudate, no drooling, no hoarseness, no trismus, uvula midline. NECK: Supple. No lymphadenopathy CHEST: Clear to auscultation, breath sounds equal. No wheezing, rhonchi, rales, or stridor. No respiratory distress, speaks in full sentences. HEART: Regular rate and rhythm. No murmur heard. SKIN: Warm, dry, no rash. NEURO: Alert and oriented x3. PSYCH: Normal mood and affect Course Course Emergency Course: Patient is aware of diagnosis, understands and agrees to treatment plan. Anticipatory guidance given. Patient agrees to follow-up as directed and is aware of reasons to seek care at the emergency department. Portions of this record may have been created with voice recognition software Level of Care: Express Care Visit Vital Signs Vital signs: Vital Si
== END 2021-10-31 11:40 | disposition home or self-care (01) ==
PROVIDERS: Emergency Provider Nurse Practitioner; PCP Family Medicine
DX: J02.0 Streptococcal pharyngitis (principal); F32.A Depression, unspecified; F41.1 Generalized anxiety disorder; F17.290 Nicotine dependence, other tobacco product, uncomplicated
CPT/HCPCS: 87804; 87880; 99213; G0463

== ENCOUNTER 2021-11-04 12:49 | Inpatient (IN) | payer OTHER, SELFPAY ==
[2021-11-04] VITALS (11 sets, daily range): BP systolic 85–131; BP diastolic 42–66; PULSE 51–74; RESP 12–21; TEMP 36.2–37.1; O2SAT 94–100
--- NOTE | ~2021-11-04 | CT_ITS ---
EXAMINATION: CTA brain carotid DATE: 11/06/2021 16:23 INDICATION: Syncope. TECHNIQUE: Computed tomographic angiography (CTA) of the head was performed without and with 100 mL O mnipaque-350 intravenous contrast. CTA of the neck was performed with intravenous contrast. Automated exposure control and iterative reconstruction technique were employed. The dose-length product was 1 600.12 mGy-cm. Maximum intensity projection and volume rendered 3D-reconstructions were created by bradly ortiz technologist on a separate workstation. COMPARISON: Head CT 11/04/2021 FINDINGS: HEAD CTA: There is no intracranial hemorrhage, acute infarction, or abnormal intracranial mass lesion . The ventricles are normal in size. There are mucous retention cysts in the maxillary sinuses. The o rbits are normal. The mastoid air cells are normal. Left vertebral artery is dominant. There is no si gnificant stenosis of basilar artery or the posterior cerebral arteries. There is no significant sten osis of the intracranial internal carotid arteries or anterior or middle cerebral arteries. Anterior communicating artery is normal. The posterior communicating arteries are normal. There is no aneurysm . NECK CTA: There is mild scarring at the lung apices. There are no pathologically enlarged lymph nodes . There is no significant stenosis of the vertebral arteries. There is plaque in the proximal interna l carotid arteries. There is 0% stenosis of the proximal right internal carotid artery relative to no rmal distal artery lumen diameter (NASCET criteria). There is 0% stenosis of the proximal left seo intern al carotid artery relative to normal distal artery lumen diameter. There is severe cervical spondylos is. IMPRESSION: 1. Normal brain. No aneurysm or significant intracranial arterial stenosis. 2. 0% stenosis of the proximal internal carotid arteries relative to normal distal artery lumen diame ters (NASCET criteria). Reviewed, dictated and finalized at location B. IMPRESSION: 1. Normal brain. No aneurysm or significant intracranial arterial stenosis. 2. 0% stenosis of the proximal internal carotid arteries relative to normal dis marta artery lumen diameters (NASCET criteria).
--- NOTE | ~2021-11-04 | CT_ITS ---
EXAMINATION: CT brain wo con DATE: 11/04/2021 13:42 INDICATION: Syncope. Dizziness. TECHNIQUE: Computed tomography (CT) of the head was performed without intravenous contrast. Sagittal and coronal reconstructions were performed. The mA was adjusted according to patient size. Iterative reconstruction technique was employed. The dose-length product was 605.33 mGy-cm. COMPARISON: head CT dated 10/23/2018 FINDINGS: No acute intracranial hemorrhage, acute infarction or abnormal extra axial fluid collection. Ventricl es are normal and symmetric. No mass/mass effect. The orbits, paranasal sinuses and mastoid air cells are normal. IMPRESSION: 1. Normal head CT. Reviewed, dictated and finalized at location A. IMPRESSION: 1. Normal head CT.
--- NOTE | ~2021-11-04 | XR_ITS ---
EXAMINATION: XR chest 1V portable INDICATION: Transient alteration of awareness TECHNIQUE: Portable AP chest at 1347 hours COMPARISON: 10/23/2018 FINDINGS: The lungs are free of acute opacities. There is no pleural effusion or pneumothorax. The ca rdiomediastinal silhouette is normal. An electronic device projects over the left heart border. IMPRESSION: 1. No acute cardiopulmonary abnormality. Reviewed, dictated and finalized at location A.
--- NOTE | 2021-11-04 12:50 | ECG_ITS ---
Measurements Intervals [place] Rate: 61 P: 100 NV: 169 QRS: 24 QRSD: 94 T: 30 QT: 404 QTc: 409 Interpretive Statements SINUS RHYTHM LOW QRS VOLTAGE IN PRECORDIAL LEADS CANNOT RULE OUT SEPTAL INFARCT, AGE INDETERMINATE BORDERLINE T WAVE ABNORMALITY- INFERIOR LEADS BASELINE ARTIFACT- I, II, III, AVR, AVL, AVF, V1-V6 ABNORMAL ECG Electronically Signed On 11-04-2021 14:27:16 CDT by Luis Greene D.O.
[2021-11-04 13:35] LABS: Appearance Urine Clear (Clear); Bilirubin Urine Negative (Negative); Blood Urine Negative (Negative); Color Urine Yellow (Yellow); Glucose Urine UA Negative (Negative); Ketones Urine Negative (Negative); Leukocyte Esterase Ur Negative LEU/UL (Negative); Nitrate Urine Negative (Negative); Protein Urine Negative (Negative); Specific Grav Ur <= 1.005 (1.001-1.035); Urobilinogen Urine 0.2 mg/dL (<2.0); pH Urine 5.5 (5.0-9.0)
[2021-11-04 13:36] LABS: Basophils Percent Auto 0.4 % (0.2-1.2); Eosinophils Absolute Auto 0.1 K/mm3 (0-0.3); Eosinophils Percent Auto 0.7 % (0-4.4); Hematocrit 40.4 % (37.0-47.0); Hemoglobin 12.9 g/dL (12.0-15.0); Immature Granulocyte Absolute 0.01 K/mm3 (0.00-0.031); Immature Granulocyte Percent A 0.1 % (0-0.5); Lymphocytes Absolute Auto 2.45 K/mm3 (0.9-3.2); Lymphocytes Percent Auto 28.7 % (18.3-44.2); Mean Corpuscular HGB Conc 31.9 g/dl (32-36); Mean Corpuscular Hemoglobin 30.6 pg (26-34); Mean Corpuscular Volume 95.7 fl (80-100); Monocytes Absolute Auto 0.6 K/mm3 (0.1-0.6); Monocytes Percent Auto 7.3 % (2.6-8.5); Neutrophils Absolute Auto 5.4 K/mm3 (1.3-6.7); Neutrophils Percent Auto 62.8 % (45.5-73.1); Platelet Count Result 254 k/mm3 (150-375); Red Blood Count 4.22 M/mm3 (4.2-5.4); Red Cell Distribution Width 11.9 % (11.5-14.5); White Blood Count 8.5 K/mm3 (4.5-10.0)
[2021-11-04 13:47] LABS: Lactic Acid Reflex 0.8 mmol/L (0.7-2.0); Magnesium 1.9 mg/dL (1.6-2.3); Prothrombin Time 12.8 Seconds (11.1-14.7)
[2021-11-04 13:48] LABS: Partial Thromboplastin Time 23.8 SECONDS (22.3-36.8)
[2021-11-04 13:48] LABS: Alanine Aminotransferase 22 U/L (4-35); Albumin Level 4.3 g/dL (3.5-5.1); Alkaline Phosphatase 44 U/L (38-126); Anion Gap 6 mmol/L (8-16); Aspartate Amino Transferase 35 U/L (14-36); Bilirubin,Total 0.1 mg/dL (0.2-1.3); Blood Urea Nitrogen 16 mg/dL (7-17); Calcium 8.9 mg/dL (8.4-10.2); Carbon Dioxide 28 mmol/L (22-30); Chloride 98 mmol/L (98-107); Estimated CRCL calculation 58 ml/min; Estimated Glomerular Filt Rate > 60; Glucose 94 mg/dL (65-110); Potassium 3.9 mmol/L (3.4-5.0); Sodium 132 mmol/L (137-145)
[2021-11-04 13:57] LABS: Troponin I < 0.012 ng/mL (0.000-0.034)
[2021-11-04] MEDS: SODIUM CHLORIDE 0.9% IV 1,000 ML 999 ML IV CONT (14:03)
[2021-11-04 14:08] LABS: Add Urine Microscopic? NO
--- NOTE | 2021-11-04 14:40 | ED.GENADULT ---
HPI - General Adult General Chief complaint: Syncope Stated complaint: syncope, dizziness, nausea Time Seen by Provider: 11/04/21 13:01 Source: RN notes reviewed History of Present Illness HPI narrative: Patient presents emergency department from home for syncopal episode. Patient states that she was talking on the phone today with her doctor when she began to feel lightheaded and then had a syncopal episode her daughter was there by her was able to get her lying on the floor daughter states that she is out for approximately 15 to 20 seconds and then woke up and had another brief syncopal episode x2. Patient states she has not been feeling well since last week she gone to urgent care and was diagnosed with a sinus infection was started on antibiotics but does not feel like they have been helping she denies any fevers or chills chest pain shortness of breath abdominal pain nausea vomiting or any other symptoms. States she does have a history of SVT with an ablation performed past and has a loop recorder placed 4 years ago Related Data Home Medications Medication Instructions Recorded Confirmed alprazolam [Xanax] 1 mg PO DAILY 10/31/21 10/31/21 clonazepam 1 mg PO BID 10/31/21 10/31/21 estradiol 2 mg PO DAILY 10/31/21 10/31/21 flecainide 100 mg PO Q12H 10/31/21 10/31/21 oxybutynin chloride 10 mg PO DAILY 10/31/21 10/31/21 vilazodone [Viibryd] 30 mg PO DAILY 10/31/21 10/31/21 Allergies Allergy/AdvReac Type Severity Reaction Status Date / Time azithromycin [From Zithromax] AdvReac Other Verified 11/04/21 13:13 Review of Systems Review of Systems: Gen.: Denies fevers or chills Eyes: Denies eye pain or visual change ENT: Reports nasal congestion and sore throat Respiratory: Denies shortness of breath or cough CV: See HPI GI: Denies abdominal pain nausea, emesis or diarrhea Musculoskeletal: Denies back pain or muscle pain Neuro: Reports dizziness denies any numbness reports generalized weakness Skin: Denies rash Except as documented, all other systems reviewed and negative PMFSH Past Medical History Medical History (Updated 11/04/21 @ 15:22 by Dylan Diane DO) Anal skin tag Chronic insomnia Depression Diverticulosis PARISH (generalized anxiety disorder) Paroxysmal SVT (supraventricular tachycardia) Surgical History Surgical History History of cardiac radiofrequency ablation History of loop recorder Social History Social History Social History: Smoking status: Smoker, status unknown (Vapes) Tobacco type: e-cigarettes/vaping Second hand tobacco smoke exposure: No Alcohol intake: never Substance use: never Substance use type: does not use Gender identity (if verbalized by the patient): Female Sexual Orientation (if Verbalized by the Patient): Straight or Heterosexual Spiritual care concerns: No Exam Narrative: APPEARANCE: No acute distress, nontoxic, resting in bed EYES: EOMI HEENT: Normocephalic, atraumatic, TMs clear bilaterally bilateral turbinates boggy oromucosa moist erythema exudate posterior pharynx RESPIRATORY: No respiratory distress Clear to auscultation bilaterally with no rhonchi wheezing or rales. CARDIOVASCULAR: Regular rate and rhythm without murmurs rubs or gallops. ABDOMINAL: Soft, nontender, nondistended, no rebound or guarding MUSCULOSKELETAl: Moves all extremities. No clubbing, cyanosis or edema. NEURO: Awake and alert x 3. Following commands, speech normal, no focal deficits, muscle strength 5 out of 5 bilateral upper and lower extremities SKIN:: Warm, dry. No rashes lesions or abrasions PSYCHIATRIC: Normal affect/mood, Course Course Emergency Course: Patient's family called that patient will have brief 10-second syncopal episode in ED while laying in bed rhythm was checked on monitor with no arrhythmias noted Discussed with SARMAD Killian for Dr. Enoc ryan
--- NOTE | 2021-11-04 17:22 | ADMGEN ---
This patient, Ute Madden, was admitted to Medical Room 341-01. Patient/family oriented to hospital policies and general routines including ID bracelet, bed and alarms, visiting hours, pain management, procedures, bathroom and other care routines, personal items, smoking policy, room service/diet, and visiting hours. Information on how to activate the Rapid Response Team has been discussed. Patient/Family are encouraged to report perceived risks to care and to ask questions if they do not understand what they are told or what they should do.
[2021-11-04 18:22] LABS: Troponin I < 0.012 ng/mL (0.000-0.034)
--- NOTE | 2021-11-04 19:30 | PM.IMHP ---
H&P: HPI History of Present Illness Date/Time: Patient was placed observation status for expected length of stay less than 23 hours for management, will plan to re-evaluate tomorrow for improvement. 11/04/21 19:30 Chief Complaint: Syncopal episode Narrative: Ms. Madden is a 56-year-old female who presented to the emergency room with complaints of syncopal episode. Patient states she was with her daughter this afternoon and began complaining of some dizziness to her daughter and then the next thing she knows she woke on the floor. Patient states that this has occurred to her in the past, but she believes that it has [place] secondary to her anxiety. Patient states that she was in the emergency room being evaluated and she was sitting down in her daughter noted the patient's eyes rolled back in her head and if he could not be woken up. Patient states she does not recall either event occurring. Patient's spouse is at bedside and states that the patient was complaining of dizziness with a 2nd event. Per the emergency room when patient was having her ?episode? telemetry did not catch anything except for a very erratic baseline. Patient denies any chest pain, shortness a breath, or palpitations prior to her syncopal episodes. Patient states that time she does complain of dizziness, but she does not always recall this. Patient states she has a known history of SVT status post ablation and significant anxiety. Patient states that she is on flecainide for her history of SVT and she does take this daily. Patient states she also does take multiple medications for her anxiety. Patient states that she has recently been placed on penicillin VK for strep throat and ear infection. Patient states she was seen in Urgent Care was diagnosed with strep throat and was told she had fluid behind her ear and this could be causing some of her dizziness. Review of Systems Review of Systems: A 12 point review of systems was completed patient all pertinent positive and negative per HPI the remainder are unremarkable. FORMERLY [facility] Past Medical History Medical History (Updated 11/04/21 @ 15:22 by Dylan Diane DO) Anal skin tag Chronic insomnia Depression Diverticulosis PARISH (generalized anxiety disorder) Paroxysmal SVT (supraventricular tachycardia) Surgical History Surgical History History of cardiac radiofrequency ablation History of loop recorder Social History Social History Social History: Smoking status: Current some day smoker Tobacco type: e-cigarettes/vaping Second hand tobacco smoke exposure: No Alcohol intake: never Substance use: never Substance use type: does not use Gender identity (if verbalized by the patient): Female Sexual Orientation (if Verbalized by the Patient): Straight or Heterosexual Spiritual care concerns: No Meds Home Medications and Allergies Home Medications Medication Instructions Recorded Confirmed Type alprazolam [Xanax] 1 mg PO DAILY 10/31/21 11/04/21 History clonazepam 1 mg PO BID 10/31/21 11/04/21 History estradiol 2 mg PO DAILY 10/31/21 11/04/21 History flecainide 100 mg PO Q12H 10/31/21 11/04/21 History oxybutynin chloride 10 mg PO DAILY 10/31/21 11/04/21 History penicillin V potassium 500 mg PO Q12H 10 Days #20 tablet 10/31/21 11/04/21 Rx vilazodone [Viibryd] 30 mg PO DAILY 10/31/21 11/04/21 History magnesium 500 mg PO DAILY 11/04/21 11/04/21 History ondansetron 4 mg disintegrating 4 mg PO Q6H PRN #10 tablet 11/04/21 11/04/21 Rx tablet polyethylene glycol 3350 [Miralax] 17 g PO DAILY 11/04/21 11/04/21 History Allergies Allergy/AdvReac Type Severity Reaction Status Date / Time azithromycin [From Zithromax] AdvReac Other Verified 11/04/21 13:13 Vital Signs Vital Signs - 24 hr 11/04/21 12:50 11/04/21 13:05 11/04/21 13:36 Temperature 37.1 C Pulse Rate 59 L 62
[2021-11-04] MEDS: FLECAINIDE ACETATE 100 MG TABLET PO (21:34)
[2021-11-04] MEDS: SODIUM CHLORIDE 0.9% IV 1,000 ML 100 ML IV CONT (21:40)
[2021-11-04] MEDS: PENICILLIN V POTASSIUM 250 MG TABLET 500 MG PO (21:41)
[2021-11-04 21:42] LABS: Troponin I < 0.012 ng/mL (0.000-0.034)
[2021-11-05] VITALS (16 sets, daily range): BP systolic 94–136; BP diastolic 37–73; PULSE 45–89; RESP 16–18; TEMP 36.6–37; O2SAT 98–100
--- NOTE | 2021-11-05 | ECHO_ITS ---
Patient Info Name: Ute Madden Age: 56 years : 1965 Gender: Female Ht: 65 in Wt: 145 lbs BSA: 1.75 m2 HR: 62 bpm BP: 104 / 62 mmHg Heart Rhythm: Sinus Rhythm Technical Quality: Fair Exam Date: 11/05/2021 4:28 PM Exam Location: [facility] Card Pulmonary Patient Status: Inpatient Admit Date: 11/04/2021 Staff Ordering Physician: Sonia Bryant Wood Piler: Malgorzata Melendez RDCS Attending Provider: Jerri Tyler PA-C Referring Physician: Annette RUSS; Exam Type: CA echo doppler color flow Study Info Indications - syncope Complete two-dimensional, color flow and Doppler transthoracic echocardiogram is performed. Summary 1. Complete two-dimensional, color flow and Doppler transthoracic echocardiogram is performed. 2. Left ventricular chamber dimension is normal. 3. Left ventricular systolic function is normal, estimated at 55-60%. 4. There is no increased left ventricular wall thickness. 5. The left ventricular diastolic function is normal. 6. There is mild tricuspid valve regurgitation. 7. There is mild pulmonic regurgitation. Left Ventricle Left ventricular chamber dimension is normal. Left ventricular systolic function is normal, estimated at 55-60%. There is no increased left ventricular wall thickness. The left ventricular diastolic function is normal. Right Ventricle Right ventricular chamber dimension is normal. Right ventricular systolic function is normal. Left Atria Left atrial chamber dimension is normal. Right Atria Right atrial chamber dimension is normal. Atrial Septum Intact interatrial septum visualized by color flow imaging. Aortic Valve The aortic valve is trileaflet. There is mild aortic valve sclerosis. There is no aortic valve stenosis. There is trace aortic valve regurgitation. Pulmonic Valve The pulmonic valve is normal. There is no pulmonic valve stenosis. There is mild pulmonic regurgitation. Mitral Valve The mitral valve has normal leaflets. There is no mitral valve stenosis. There is trace mitral valve regurgitation. Tricuspid Valve The tricuspid valve leaflets are normal. There is no significant tricuspid valve stenosis. There is mild tricuspid valve regurgitation. No pulmonary hypertension, estimated pulmonary arterial systolic pressure is 33 mmHg. Pericardium/Pleural The pericardium appears normal. There is trivial pericardial effusion. Inferior Vena Cava Normal inferior vena cava with >50% collapse upon inspiration consistent with normal right atrial pressure, 10 mmHg. Aorta The aortic root size at the sinus of Valsalva is normal. The prox ascending aorta size is normal. Left Ventricular Outflow Tract Name Value Normal LVOT 2D LVOT Diameter 2.0 cm LVOT Doppler LVOT Peak Gradient 3 mmHg LVOT Mean Gradient 1 mmHg LVOT VTI 18 cm LVOT VTI/AV VTI Ratio 0.8 LVOT Stroke Volume 55 ml LVOT CO 3.0 l/min LVOT CI
[2021-11-05 06:15] LABS: Basophils Percent Auto 0.4 % (0.2-1.2); Eosinophils Absolute Auto 0.1 K/mm3 (0-0.3); Eosinophils Percent Auto 2.2 % (0-4.4); Hemoglobin 12.4 g/dL (12.0-15.0); Immature Granulocyte Absolute 0.01 K/mm3 (0.00-0.031); Immature Granulocyte Percent A 0.2 % (0-0.5); Lymphocytes Absolute Auto 2.49 K/mm3 (0.9-3.2); Lymphocytes Percent Auto 49.4 % (18.3-44.2); Mean Corpuscular HGB Conc 31.8 g/dl (32-36); Mean Corpuscular Hemoglobin 30.5 pg (26-34); Mean Corpuscular Volume 96.1 fl (80-100); Monocytes Absolute Auto 0.5 K/mm3 (0.1-0.6); Monocytes Percent Auto 9.5 % (2.6-8.5); Neutrophils Absolute Auto 1.9 K/mm3 (1.3-6.7); Neutrophils Percent Auto 38.3 % (45.5-73.1); Platelet Count Result 221 k/mm3 (150-375); Red Blood Count 4.06 M/mm3 (4.2-5.4)
[2021-11-05 06:18] LABS: Anion Gap 3 mmol/L (8-16); Blood Urea Nitrogen 11 mg/dL (7-17); Calcium 8.2 mg/dL (8.4-10.2); Carbon Dioxide 26 mmol/L (22-30); Chloride 108 mmol/L (98-107); Estimated CRCL calculation 73 ml/min; Estimated Glomerular Filt Rate > 60; Glucose 85 mg/dL (65-110); Sodium 137 mmol/L (137-145)
[2021-11-05] MEDS: clonazePAM (*CRX) 0.5 MG TABLET 1 MG PO ×2 (06:29→20:03)
[2021-11-05] MEDS: ONDANSETRON HCL ODT 4 MG TABLET PO ×3 (06:31→18:10)
[2021-11-05] MEDS: SODIUM CHLORIDE 0.9% IV 1,000 ML 100 ML IV CONT ×2 (07:48→18:09)
[2021-11-05] MEDS: ENOXAPARIN 40 MG/0.4 ML SYRINGE SUB-Q (09:39)
[2021-11-05] MEDS: estradioL 1 MG TABLET 2 MG PO (09:39)
[2021-11-05] MEDS: MAGNESIUM 27 MG TABLET (500 MG MAG GLUCONATE) PO (09:40)
[2021-11-05] MEDS: PENICILLIN V POTASSIUM 250 MG TABLET 500 MG PO ×2 (09:41→20:03)
[2021-11-05] MEDS: FLECAINIDE ACETATE 100 MG TABLET PO ×2 (09:41→20:03)
[2021-11-05] MEDS: polyethylene glycoL 3350 17 GM POWD.PACK PO (09:42)
[2021-11-05] MEDS: ALPRAZolam (*CRX) 0.5 MG TABLET 1 MG PO (13:55)
--- NOTE | 2021-11-05 14:29 | PM.CNCAR ---
Assessment and Plan Assessment and plan (1) Syncope: Code(s): R55 - Syncope and collapse Status: Acute Assessment and Plan: Several episodes of syncope yesterday that began while she was out shopping with her daughter. No prodrome to any of these events. She has not had any tachy or jonathan arrhythmias on telemetry that would suggest an arrhythmia to be the cause of her syncopal episodes. Her symptoms seem most consistent with orthostasis. Continue fluids Continue to check orthostatic vitals Q shift Compression stockings Caution with transitioning from sitting to standing or lying to sitting Will request loop recorder event log Check echo (2) SVT (supraventricular tachycardia): Code(s): I47.1 - Supraventricular tachycardia Status: Acute Assessment and Plan: History of SVT with SVT ablation 3 and half years ago according to the patient. She also has a loop recorder in place for reasons that are not clear. No evidence SVT on telemetry during this hospitalization. History of Present Illness History of Present Illness Consult date/time: 11/05/21 14:29 Ms. Madden is a 56 year old with a history of SVT status post ablation now with a loop recorder implanted. This is a patient who presented to the emergency department yesterday after having a syncopal event while she was out running errands with her daughter. She had been sitting in the car and stood up to go inside a store with her daughter when she suddenly passed out. Per the patient's daughter who was with her at the time, while she remained on the ground after this 1st syncopal episode, her eyes rolled back in her head and she passed out again. Patient denies feeling any dizziness, lightheadedness before this event but does say that she has been feeling nauseous in general over the last several days. She also reports having another syncopal event while she was in the emergency department lying in the stretcher. She denies having any chest pain, palpitations, shortness of breath, swelling. She does say that she had syncope once before her SVT ablation but it was different because she felt symptoms of palpitations and dizziness prior to passing out. She is also reporting symptoms of poor balance stating that she feels like she is walking on marshmallows because the ground feels wobbly and unstable beneath her. She is also having dizziness at rest while she lies in bed and when she changes position from lying to sitting up she has worsening dizziness. Reason For Visit: Syncope Review of Systems Constitutional: Constitutional: Denies fatigue, Denies lethargy and Denies weakness Eyes: Eyes: Denies blurry vision, Denies change in vision and Denies diplopia ENT: Reports Normal hearing present and Reports nasal congestion Cardiovascular: Cardiovascular: Denies chest pain, Denies diaphoresis, Denies lightheadedness and Denies palpitations Respiratory: Respiratory: Denies dyspnea and Denies dyspnea on exertion Gastrointestinal: Gastrointestinal: Reports constipation and Denies diarrhea Genitourinary: Genitourinary: Denies hematuria, Denies urinary hesitancy and Denies urinary urgency Musculoskeletal: Musculoskeletal: Denies back pain, Denies arthralgias and Denies neck pain Integumentary/Breasts: Skin/Breast: Denies unusual bruising Neurologic: Reports vertigo, Reports dizziness and Reports syncope Psychiatric: Psychiatric: Reports anxiety and Denies depression Endocrine: Endocrine: Denies cold intolerance, Denies fatigue, Denies heat intolerance and Denies palpitations Hematologic/Lymphatic: Hematologic/Lymphatic: Denies easy bleeding and Denies easy bruising [facility] Past Medical History Medical History Anal skin tag Chronic insomnia Depression Diverticulosis PARISH (generalized anxiety disorder) Paroxysmal SVT (supraventricular tachycardia) Surgical History Surgical
--- NOTE | 2021-11-05 16:50 | PM.IMPN ---
Progress Note: A&P Assessment and Plan (1) Syncope: Code(s): R55 - Syncope and collapse Status: Acute Assessment and Plan: Will have orthostatic blood pressures and pulses performed. Cardiology has been consulted and appreciate any further recommendations. Will attempt to obtain records from [facility] patient has had her ablation performed for SVT, and also had a loop recorder placed. telemetry does not show any tachy or bradyarrhythmia. she does have orthostatic hypotension Patient reports being well hydrated, and her BUN reflect this. Inflammatory markers within normal limits, UA unremarkable, no evidence of anemia, no electrolyte abnormalities, magnesium is 2.0, TSH 3.03, 3 x serial troponins negative, chest x-ray without cardiopulmonary abnormality, CT head normal, EKG showing borderline T-wave abnormality in the inferior leads, cannot rule out septal infarct age indeterminate, sinus rhythm, normal rate. Cardiology has been consulted we appreciate their inputs. continue IV fluids Echocardiogram Todd Hose in place loop recorder will be queried by Cardiology continue monitor tech vital signs a.m. labs Orthostatics (2) Middle ear effusion: Code(s): H65.90 - Unspecified nonsuppurative otitis media, unspecified ear Status: Acute Assessment and Plan: She does report some tenderness behind her right ear. CT head showed normal orbits, paranasal sinuses, and mastoid air cells. Will continue patient's antibiotics (penicillin ) prescribed at Urgent Care. (3) PARISH (generalized anxiety disorder): Code(s): F41.1 - Generalized anxiety disorder Status: Acute Assessment and Plan: Patient on long-term Xanax and clonazepam therapy for her anxiety. We will continue these during her stay. continue vilazodone (SSRI) Subjective Date/time seen: 11/05/21 16:50 Interval history: 56-year-old female with past medical history of anxiety, SVT status post ablation on flecainide with loop recorder, who presented to us for multiple syncopal episodes. Patient is very concerned and anxious today. She denies chest pain, shortness a breath, syncopal episodes today, nausea, vomiting. She states she does get lightheaded upon standing, and has recorded her own blood pressure readings while the nurse did her orthostatics today. She did want to discuss them with me. Patient was recently diagnosed with otitis media and is on antibiotics from urgent care for this, which we will continue. She denies personal history of seizures, recent steroid use, adrenal insufficiency. She does report being recently diagnosed with strep throat in August, treated with amoxicillin. Review of Systems Review of Systems: All systems reviewed & are unremarkable except as noted in HPI and below Exam Narrative: GENERAL APPEARANCE: Alert and oriented x 3, anxious, recumbent in bed. HEENT: PERRL, EOMI. Sclerae anicteric. Moist mucous membranes. NECK: Supple. No JVD or obvious carotid bruits. RESPIRATORY: Respirations are nonlabored. Breath sounds are equal and clear bilaterally. No wheezes, Rhonchi, or rales. CARDIOVASCULAR: Regular rate and rhythm with normal S1-S2. No murmurs, gallops, or rubs. GASTROINTESTINAL: Soft, flat, and benign. No mass, tenderness, guarding, or rebound. No organomegaly or hernia. Bowel sounds are present. SKIN: [place] skin (confirmed with patient that she does use a tanning bed) Warm, dry, well perfused. Good turgor. No lesions, nodules, or rashes noted. EXTREMITIES: No cyanosis, clubbing, or edema. Radial and pedal pulses intact. NEUROLOGICAL: Alert. Cranial nerves 2-12 are grossly intact. No gross focal deficits to casual conversation. PSYCHIATRIC: Pleasant and cooperative, although anxious, with normal mood and affect. Objective Data Vital Signs Vital Signs: Vital Signs - 24 hr 11/04/21 17:52 0
[2021-11-05] MEDS: LORATADINE 10 MG TABLET PO (17:59)
[2021-11-06] VITALS (17 sets, daily range): BP systolic 92–108; BP diastolic 53–72; PULSE 51–78; RESP 16–18; TEMP 36.5–36.8; O2SAT 97–100
[2021-11-06] MEDS: SODIUM CHLORIDE 0.9% IV 1,000 ML 100 ML IV CONT ×3 (04:48→21:36)
[2021-11-06] MEDS: clonazePAM (*CRX) 0.5 MG TABLET 1 MG PO ×2 (05:59→20:04)
[2021-11-06 06:18] LABS: Basophils Percent Auto 0.9 % (0.2-1.2); Eosinophils Absolute Auto 0.1 K/mm3 (0-0.3); Eosinophils Percent Auto 3.1 % (0-4.4); Hematocrit 37.2 % (37.0-47.0); Immature Granulocyte Absolute 0.01 K/mm3 (0.00-0.031); Immature Granulocyte Percent A 0.2 % (0-0.5); Lymphocytes Absolute Auto 2.44 K/mm3 (0.9-3.2); Lymphocytes Percent Auto 54.1 % (18.3-44.2); Mean Corpuscular HGB Conc 32.3 g/dl (32-36); Mean Corpuscular Hemoglobin 30.5 pg (26-34); Mean Corpuscular Volume 94.7 fl (80-100); Mean Platelet Volume 9.8 fl (7.4-10.4); Monocytes Absolute Auto 0.5 K/mm3 (0.1-0.6); Monocytes Percent Auto 10.4 % (2.6-8.5); Neutrophils Absolute Auto 1.4 K/mm3 (1.3-6.7); Neutrophils Percent Auto 31.3 % (45.5-73.1); Platelet Count Result 228 k/mm3 (150-375); Red Blood Count 3.93 M/mm3 (4.2-5.4); White Blood Count 4.5 K/mm3 (4.5-10.0)
[2021-11-06 06:36] LABS: Alanine Aminotransferase 18 U/L (4-35); Alkaline Phosphatase 37 U/L (38-126); Anion Gap 1 mmol/L (8-16); Aspartate Amino Transferase 30 U/L (14-36); Bilirubin,Total 0.2 mg/dL (0.2-1.3); Blood Urea Nitrogen 6 mg/dL (7-17); Calcium 7.8 mg/dL (8.4-10.2); Carbon Dioxide 27 mmol/L (22-30); Chloride 110 mmol/L (98-107); Estimated CRCL calculation 65 ml/min; Estimated Glomerular Filt Rate > 60; Glucose 85 mg/dL (65-110); Sodium 138 mmol/L (137-145)
--- NOTE | 2021-11-06 09:36 | PM.PNCARD ---
Progress Note: A&P Assessment and Plan (1) Syncope: Code(s): R55 - Syncope and collapse Status: Acute Assessment and Plan: Several episodes of syncope yesterday that began while she was out shopping with her daughter. No prodrome to any of these events. She has not had any tachy or jonathan arrhythmias on telemetry that would suggest an arrhythmia to be the cause of her syncopal episodes. Her symptoms seem most consistent with orthostasis. Continue fluids Continue to check orthostatic vitals Q shift Compression stockings Caution with transitioning from sitting to standing or lying to sitting ECHO was unremarkable Still borderline orthostatic. She has lost significant weight wonder if she is not malnourished. Will check a pre-albumin. Will also check a random serum cortisol I did talk to [facility] and her episodes did not correlate any significant arrhythmia. (2) SVT (supraventricular tachycardia): Code(s): I47.1 - Supraventricular tachycardia Status: Acute Assessment and Plan: History of SVT with SVT ablation 3 and half years ago according to the patient. She also has a loop recorder in place for reasons that are not clear. No evidence SVT on telemetry during this hospitalization. (3) Orthostasis: Code(s): I95.1 - Orthostatic hypotension Status: Acute Assessment and Plan: Continue fluids, compression stockings. Thyroid was normal. Check a random serum cortisol. Will hold off midodrine for now Subjective Date/time seen: 11/06/21 09:36 Interval history: 56-year-old female with past medical history of anxiety, SVT status post ablation on flecainide with loop recorder, who presented to us for multiple syncopal episodes. Date of service 11/06/2021: Still dizzy upon standing. No chest pain, shortness of breath. No arrhythmia Review of Systems Constitutional: Constitutional: Denies fatigue, Denies lethargy and Denies weakness Eyes: Eyes: Denies blurry vision, Denies change in vision and Denies diplopia ENT: Reports Normal hearing present, Reports vertigo, Reports dizziness, Reports nasal congestion and Denies neck pain Cardiovascular: Cardiovascular: Denies chest pain, Denies diaphoresis, Reports syncope, Denies lightheadedness, Denies palpitations, Denies dyspnea and Denies dyspnea on exertion Respiratory: Respiratory: Denies dyspnea and Denies dyspnea on exertion Gastrointestinal: Gastrointestinal: Reports constipation and Denies diarrhea Genitourinary: Genitourinary: Denies hematuria, Denies urinary hesitancy and Denies urinary urgency Musculoskeletal: Musculoskeletal: Denies back pain, Denies arthralgias and Denies neck pain Integumentary/Breasts: Skin/Breast: Denies unusual bruising Neurologic: Reports Normal hearing present, Reports vertigo, Reports dizziness, Reports syncope and Denies weakness Psychiatric: Psychiatric: Reports anxiety and Denies depression Endocrine: Endocrine: Denies cold intolerance, Denies fatigue, Denies heat intolerance and Denies palpitations Hematologic/Lymphatic: Hematologic/Lymphatic: Denies easy bleeding and Denies easy bruising Exam Const: General: comfortable HENMT: Head: normal to inspection Ears: hearing grossly normal bilaterally and external ears normal Face and sinus: normal facial exam Teeth and gingiva: poor dentition Eyes: General: appearance normal, both eyes and all related structures Pupils: Equal, round and reactive pupils present Neck: Neck: supple Resp: Effort & Inspection: normal respiratory effort Auscultation: clear to auscultation bilaterally Cardio: Rate: regular rate Rhythm: regular rhythm Heart sounds: no murmurs GI: Auscultation: normal bowel sounds Skin: General skin exam: normal color Neuro: Cranial nerves: Yes Equal, round and reactive pupils present and Yes Normal hearing present Cognition (Neuro): normal cognition Extrem: General: norm
[2021-11-06] MEDS: ONDANSETRON HCL ODT 4 MG TABLET PO ×2 (09:44→20:04)
[2021-11-06] MEDS: estradioL 1 MG TABLET 2 MG PO (09:44)
[2021-11-06] MEDS: FLECAINIDE ACETATE 100 MG TABLET PO ×2 (09:44→21:36)
[2021-11-06] MEDS: ENOXAPARIN 40 MG/0.4 ML SYRINGE SUB-Q (09:45)
[2021-11-06] MEDS: MAGNESIUM 27 MG TABLET (500 MG MAG GLUCONATE) PO (09:45)
[2021-11-06] MEDS: PENICILLIN V POTASSIUM 250 MG TABLET 500 MG PO ×2 (09:45→20:04)
[2021-11-06] MEDS: polyethylene glycoL 3350 17 GM POWD.PACK PO (09:45)
[2021-11-06 10:48] LABS: Prealbumin 19.3 mg/dL (17.6-36.0)
--- NOTE | 2021-11-06 12:11 | PM.IMPN ---
Progress Note: A&P Assessment and Plan (1) Syncope: Code(s): R55 - Syncope and collapse Status: Acute Assessment and Plan: Will have orthostatic blood pressures and pulses performed. Cardiology has been consulted and appreciate any further recommendations. Will attempt to obtain records from [facility] patient has had her ablation performed for SVT, and also had a loop recorder placed. telemetry does not show any tachy or bradyarrhythmia. she does have orthostatic hypotension Patient reports being well hydrated, and her BUN reflect this. Inflammatory markers within normal limits, UA unremarkable, no evidence of anemia, no electrolyte abnormalities, magnesium is 2.0, TSH 3.03, 3 x serial troponins negative, chest x-ray without cardiopulmonary abnormality, CT head normal, EKG showing borderline T-wave abnormality in the inferior leads, cannot rule out septal infarct age indeterminate, sinus rhythm, normal rate. Cardiology has been consulted we appreciate their inputs. continue IV fluids Echocardiogram unremarkable Random cortisol and pre albumin WNL Todd Hose in place loop recorder report without any events continue child monitor vital signs a.m. labs Orthostatics (2) Dizziness: Code(s): R42 - Dizziness and giddiness Status: Acute Assessment and Plan: -felt to be secondary to orthostatic hypotension however she tells me she is dizziest when laying flat on her back -I am wondering if the recent URI led to maybe a vestibular neuritis? However that would not coincide with the syncopal events -she also tells me turning her head quickly will make her dizzy so we will try having therapy work with her and do the [place] Hallpike and Radha maneuvers -also going to try meclizine scheduled today to see if this provides any relief for her dizziness -spoke w/ patient's labor trainer and her loop recorder is compatible with MRI so I will obtain those records and order MRI. Consider neuro consult if dizziness persists. No focal deficits. (3) Middle ear effusion: Code(s): H65.90 - Unspecified nonsuppurative otitis media, unspecified ear Status: Acute Assessment and Plan: She does report some tenderness behind her right ear. CT head showed normal orbits, paranasal sinuses, and mastoid air cells. Will continue patient's antibiotics (penicillin ) prescribed at Urgent Care. (4) PARISH (generalized anxiety disorder): Code(s): F41.1 - Generalized anxiety disorder Status: Acute Assessment and Plan: Patient on long-term Xanax and clonazepam therapy for her anxiety. We will continue these during her stay. continue vilazodone (SSRI) Time Spent With Patient Time: Spoke at length with patient and regarding their concerns. Pt very anxious about being discharged too soon. She also insisted I speak with her labor trainer Dr. Jasso who I called and spoke with today. Her labor trainer told me her prior loop recordings were also normal, as well as her stress test and echo. Time with patient: Greater than 35 minutes Subjective Date/time seen: 11/06/21 12:11 Interval history: 56-year-old female with past medical history of anxiety, SVT status post ablation on flecainide with loop recorder, who presented to us for multiple syncopal episodes. Pt continues to be dizzy but has not had any more syncopal episodes. She tells me she is dizzy while laying in bed and certain positions such as lying flat on her back make it worse. She also notes that she recently was diagnosed with strep throat and had some upper respiratory symptoms within the past couple of weeks. Today she has had nausea and has vomited some clear phlegm. No paraesthesias or focal weakness, however she does note that her legs both feel like jello . No back pain. No bowel or bladder incontinence. No cp or sob. Loop recorder report normal per cardiology. Rev
[2021-11-06] MEDS: ALPRAZolam (*CRX) 0.5 MG TABLET 1 MG PO (12:59)
[2021-11-06] MEDS: MECLIZINE HCL 6.25 MG TABLET PO ×2 (12:59→17:35)
--- NOTE | 2021-11-06 15:00 | PC.NURSE ---
This nurse gave paperwork about the loop recorder to MRI and they stated they couldn't do the MRI because she would have to be monitored during the MRI and they do not have the capabilities to do that. Sydnee Tyler the hospitalist was made aware.
[2021-11-06] MEDS: LORATADINE 10 MG TABLET PO (17:35)
[2021-11-07] VITALS (14 sets, daily range): BP systolic 90–124; BP diastolic 58–70; PULSE 46–61; RESP 16–18; TEMP 36.7–36.8; O2SAT 97–100
[2021-11-07] MEDS: ONDANSETRON HCL ODT 4 MG TABLET PO ×2 (04:02→09:44)
[2021-11-07] MEDS: clonazePAM (*CRX) 0.5 MG TABLET 1 MG PO ×2 (05:55→20:55)
[2021-11-07 06:20] LABS: Basophils Absolute Auto 0.1 K/mm3 (0.0-0.1); Eosinophils Absolute Auto 0.2 K/mm3 (0-0.3); Eosinophils Percent Auto 3.7 % (0-4.4); Hematocrit 36.5 % (37.0-47.0); Immature Granulocyte Absolute 0.01 K/mm3 (0.00-0.031); Immature Granulocyte Percent A 0.2 % (0-0.5); Lymphocytes Absolute Auto 2.56 K/mm3 (0.9-3.2); Lymphocytes Percent Auto 53.2 % (18.3-44.2); Mean Corpuscular HGB Conc 32.9 g/dl (32-36); Mean Corpuscular Hemoglobin 30.9 pg (26-34); Mean Corpuscular Volume 94.1 fl (80-100); Mean Platelet Volume 9.8 fl (7.4-10.4); Monocytes Absolute Auto 0.4 K/mm3 (0.1-0.6); Monocytes Percent Auto 9.1 % (2.6-8.5); Neutrophils Absolute Auto 1.6 K/mm3 (1.3-6.7); Neutrophils Percent Auto 32.8 % (45.5-73.1); Platelet Count Result 219 k/mm3 (150-375); Red Blood Count 3.88 M/mm3 (4.2-5.4); Red Cell Distribution Width 11.9 % (11.5-14.5); White Blood Count 4.8 K/mm3 (4.5-10.0)
[2021-11-07 06:41] LABS: Alanine Aminotransferase 19 U/L (4-35); Albumin Level 3.1 g/dL (3.5-5.1); Alkaline Phosphatase 40 U/L (38-126); Anion Gap 4 mmol/L (8-16); Aspartate Amino Transferase 29 U/L (14-36); Bilirubin,Total 0.1 mg/dL (0.2-1.3); Blood Urea Nitrogen 4 mg/dL (7-17); Calcium 7.8 mg/dL (8.4-10.2); Carbon Dioxide 24 mmol/L (22-30); Chloride 111 mmol/L (98-107); Estimated CRCL calculation 65 ml/min; Estimated Glomerular Filt Rate > 60; Glucose 86 mg/dL (65-110); Potassium 3.6 mmol/L (3.4-5.0); Sodium 139 mmol/L (137-145)
[2021-11-07] MEDS: PENICILLIN V POTASSIUM 250 MG TABLET 500 MG PO ×2 (09:20→20:55)
[2021-11-07] MEDS: ENOXAPARIN 40 MG/0.4 ML SYRINGE SUB-Q (09:23)
[2021-11-07] MEDS: estradioL 1 MG TABLET 2 MG PO (09:24)
[2021-11-07] MEDS: MECLIZINE HCL 6.25 MG TABLET PO ×3 (09:24→17:37)
[2021-11-07] MEDS: FLECAINIDE ACETATE 100 MG TABLET PO (09:24)
[2021-11-07] MEDS: MAGNESIUM 27 MG TABLET (500 MG MAG GLUCONATE) PO (09:26)
[2021-11-07] MEDS: polyethylene glycoL 3350 17 GM POWD.PACK PO (09:27)
[2021-11-07] MEDS: SODIUM CHLORIDE 0.9% IV 1,000 ML 100 ML IV CONT ×2 (09:43→20:57)
--- NOTE | 2021-11-07 10:38 | PM.IMPN ---
Progress Note: A&P Assessment and Plan (1) Syncope: Code(s): R55 - Syncope and collapse Status: Acute Assessment and Plan: Telemetry does not show any tachy or bradyarrhythmia. She was noted to have orthostatic hypotension on arrival. Patient reports being well hydrated, and her BUN reflect this. Inflammatory markers within normal limits, UA unremarkable, no evidence of anemia, no electrolyte abnormalities, magnesium is 2.0, TSH 3.03, 3 x serial troponins negative, chest x-ray without cardiopulmonary abnormality, CT head normal, EKG showing borderline T-wave abnormality in the inferior leads, cannot rule out septal infarct age indeterminate, sinus rhythm, normal rate. Random cortisol and pre albumin WNL. Cardiology has been consulted we appreciate their inputs. Echocardiogram unremarkable Loop recorder report without any events Continue IV fluids Todd Hose in place Continue telemetry Daily orthostatics (2) Dizziness: Code(s): R42 - Dizziness and giddiness Status: Acute Assessment and Plan: -initially felt to be secondary to orthostatic hypotension however she tells me she is dizziest when laying flat on her back -I am wondering if the recent URI led to maybe a vestibular neuritis? However that would not coincide with the syncopal events -she also tells me turning her head quickly will make her dizzy so we will try having therapy work with her and do the [place] Hallpike and Radha maneuvers -added low dose meclizine yesterday with some improvement today -spoke w/ patient's maintenance construction helper and her loop recorder is compatible with MRI, however our MRI techs tell me that it is a special kind that needs special monitoring that we do not provide here. I switched the order to CTA head/neck which was normal and showed 0% stenosis of her carotids. -neuro consult placed as dizziness persists, appreciate evaluation and any recommendations (3) Middle ear effusion: Code(s): H65.90 - Unspecified nonsuppurative otitis media, unspecified ear Status: Acute Assessment and Plan: She does report some tenderness behind her right ear. CT head showed normal orbits, paranasal sinuses, and mastoid air cells. Will continue patient's antibiotics (penicillin ) prescribed at Urgent Care. (4) PARISH (generalized anxiety disorder): Code(s): F41.1 - Generalized anxiety disorder Status: Acute Assessment and Plan: Patient on long-term Xanax and clonazepam therapy for her anxiety. We will continue these during her stay. continue vilazodone (SSRI) Subjective Date/time seen: 11/07/21 10:38 Interval history: 56-year-old female with past medical history of anxiety, SVT status post ablation on flecainide with loop recorder, who presented to us for multiple syncopal episodes. Pt reports mild improvement today. Still dizzy but she is able to sit up and watch TV today. Dizziness still not necessarily associated with standing, in fact it is worst with certain head positions and when lying flat. Still some nausea, no vomiting. Leg weakness has resolved. No further episodes of syncope. Review of Systems Review of Systems: All systems reviewed & are unremarkable except as noted in HPI and below Exam Narrative: GENERAL APPEARANCE: Alert and oriented x 3, anxious, NAD, non toxic HEENT: PERRL, EOMI. Sclerae anicteric. Moist mucous membranes. NECK: Supple. RESPIRATORY: Respirations are nonlabored. Breath sounds are equal and clear bilaterally. No wheezes, Rhonchi, or rales. CARDIOVASCULAR: Regular rate and rhythm with normal S1-S2. No murmurs, gallops, or rubs. GASTROINTESTINAL: Soft, flat, and benign. No mass, tenderness, guarding, or rebound. Bowel sounds are present. SKIN: [place] skin (confirmed with patient that she does use a tanning bed) Warm, dry, well perfused. Good turgor. No lesions, nodules, or rashes noted. EXTREMITIES: No cyanosis, clubb
[2021-11-07] MEDS: ALPRAZolam (*CRX) 0.5 MG TABLET 1 MG PO (13:09)
--- NOTE | 2021-11-07 13:29 | PM.PNCARD ---
Progress Note: A&P Assessment and Plan (1) Syncope: Code(s): R55 - Syncope and collapse Status: Acute Assessment and Plan: Several episodes of syncope yesterday that began while she was out shopping with her daughter. No prodrome to any of these events. She has not had any tachy or jonathan arrhythmias on telemetry that would suggest an arrhythmia to be the cause of her syncopal episodes. Her symptoms seem most consistent with orthostasis. Her current blood pressure measurements don't meet criteria for orthostasis, though she does have mild positional drops in BP. She has a relatively low baseline BP. Will add midodrine. If no symptomatic improvement can be discontinued Continue fluids Continue to check orthostatic vitals Q shift Compression stockings Caution with transitioning from sitting to standing or lying to sitting Echo was unremarkable No arrhythmias on loop device that correlate with time of syncopal events No arrhythmias thus far on telemetry Prealbumin and serum cortisol WNL Will see her on an as needed basis at this point since her cardiac workup has been unremarkable. (2) SVT (supraventricular tachycardia): Code(s): I47.1 - Supraventricular tachycardia Status: Acute Assessment and Plan: History of SVT with SVT ablation 3 and half years ago according to the patient. She also has a loop recorder in place for reasons that are not clear. No evidence SVT on telemetry during this hospitalization. (3) Orthostasis: Code(s): I95.1 - Orthostatic hypotension Status: Acute Assessment and Plan: Continue fluids, compression stockings. Subjective Date/time seen: 11/07/21 13:29 Interval history: 56-year-old female with past medical history of anxiety, SVT status post ablation on flecainide with loop recorder, who presented to us for multiple syncopal episodes. Date of service 11/06/2021: Still dizzy upon standing. No chest pain, shortness of breath. No arrhythmia Date of service 11/07/2021: Feels a little better today. Still complaining of dizziness when turning her head and standing. Feels like legs are jell-o. Denies chest pain, shortness of breath, palpitations. Review of Systems Constitutional: Constitutional: Denies fatigue, Denies lethargy and Denies weakness Eyes: Eyes: Denies blurry vision, Denies change in vision and Denies diplopia ENT: Reports Normal hearing present, Reports vertigo, Reports dizziness, Reports nasal congestion and Denies neck pain Cardiovascular: Cardiovascular: Denies chest pain, Denies diaphoresis, Reports syncope, Denies lightheadedness, Denies palpitations, Denies dyspnea and Denies dyspnea on exertion Respiratory: Respiratory: Denies dyspnea and Denies dyspnea on exertion Gastrointestinal: Gastrointestinal: Reports constipation and Denies diarrhea Genitourinary: Genitourinary: Denies hematuria, Denies urinary hesitancy and Denies urinary urgency Musculoskeletal: Musculoskeletal: Denies back pain, Denies arthralgias and Denies neck pain Integumentary/Breasts: Skin/Breast: Denies unusual bruising Neurologic: Reports Normal hearing present, Reports vertigo, Reports dizziness, Reports syncope and Denies weakness Psychiatric: Psychiatric: Reports anxiety and Denies depression Endocrine: Endocrine: Denies cold intolerance, Denies fatigue, Denies heat intolerance and Denies palpitations Hematologic/Lymphatic: Hematologic/Lymphatic: Denies easy bleeding and Denies easy bruising Exam Const: General: comfortable HENMT: Head: normal to inspection Ears: hearing grossly normal bilaterally and external ears normal Face and sinus: normal facial exam Teeth and gingiva: poor dentition Eyes: General: appearance normal, both eyes and all related structures Pupils: Equal, round and reactive pupils present Neck: Neck: supple Resp: Effort & Inspection: normal respiratory effort Auscultation: clear to auscu
[2021-11-07] MEDS: MIDODRINE HCL 2.5 MG TABLET PO (17:36)
[2021-11-07] MEDS: LORATADINE 10 MG TABLET PO (17:38)
[2021-11-08] VITALS (13 sets, daily range): BP systolic 96–148; BP diastolic 42–78; PULSE 44–59; RESP 16–18; TEMP 36.5–36.8; O2SAT 96–100
[2021-11-08] MEDS: SODIUM CHLORIDE 0.9% IV 1,000 ML 100 ML IV CONT ×2 (05:40→13:40)
[2021-11-08] MEDS: clonazePAM (*CRX) 0.5 MG TABLET 1 MG PO ×2 (05:40→21:07)
[2021-11-08 05:49] LABS: Basophils Percent Auto 0.4 % (0.2-1.2); Eosinophils Absolute Auto 0.2 K/mm3 (0-0.3); Eosinophils Percent Auto 3.8 % (0-4.4); Hematocrit 38.4 % (37.0-47.0); Hemoglobin 12.2 g/dL (12.0-15.0); Immature Granulocyte Absolute 0.01 K/mm3 (0.00-0.031); Immature Granulocyte Percent A 0.2 % (0-0.5); Lymphocytes Absolute Auto 2.45 K/mm3 (0.9-3.2); Lymphocytes Percent Auto 52.4 % (18.3-44.2); Mean Corpuscular HGB Conc 31.8 g/dl (32-36); Mean Corpuscular Hemoglobin 30.7 pg (26-34); Mean Corpuscular Volume 96.7 fl (80-100); Mean Platelet Volume 9.7 fl (7.4-10.4); Monocytes Absolute Auto 0.4 K/mm3 (0.1-0.6); Monocytes Percent Auto 7.7 % (2.6-8.5); Neutrophils Absolute Auto 1.7 K/mm3 (1.3-6.7); Neutrophils Percent Auto 35.5 % (45.5-73.1); Platelet Count Result 217 k/mm3 (150-375); Red Blood Count 3.97 M/mm3 (4.2-5.4); Red Cell Distribution Width 11.9 % (11.5-14.5); White Blood Count 4.7 K/mm3 (4.5-10.0)
[2021-11-08 06:04] LABS: Alanine Aminotransferase 27 U/L (4-35); Albumin Level 3.2 g/dL (3.5-5.1); Alkaline Phosphatase 39 U/L (38-126); Anion Gap 4 mmol/L (8-16); Aspartate Amino Transferase 41 U/L (14-36); Bilirubin,Total 0.2 mg/dL (0.2-1.3); Blood Urea Nitrogen 5 mg/dL (7-17); Calcium 8.1 mg/dL (8.4-10.2); Carbon Dioxide 25 mmol/L (22-30); Chloride 110 mmol/L (98-107); Estimated CRCL calculation 58 ml/min; Estimated Glomerular Filt Rate > 60; Glucose 86 mg/dL (65-110); Potassium 3.5 mmol/L (3.4-5.0); Sodium 139 mmol/L (137-145)
[2021-11-08] MEDS: MECLIZINE HCL 6.25 MG TABLET PO (09:27)
[2021-11-08] MEDS: MAGNESIUM 27 MG TABLET (500 MG MAG GLUCONATE) PO (09:27)
[2021-11-08] MEDS: estradioL 1 MG TABLET 2 MG PO (09:27)
[2021-11-08] MEDS: PENICILLIN V POTASSIUM 250 MG TABLET 500 MG PO ×2 (09:27→21:08)
[2021-11-08] MEDS: ENOXAPARIN 40 MG/0.4 ML SYRINGE SUB-Q (09:28)
[2021-11-08] MEDS: polyethylene glycoL 3350 17 GM POWD.PACK PO (09:28)
[2021-11-08] MEDS: MIDODRINE HCL 2.5 MG TABLET PO (09:30)
--- NOTE | 2021-11-08 10:56 | PHAR ---
HOME MEDICATION VERIFIED BY PHARMACY [id number] 20MG TABLET TAKE 1 TAB PO ONCE DAILY [id number]
--- NOTE | 2021-11-08 12:17 | PCDIET ---
patient seen today for meal rounds. States to not having much of an appetite. Discussed with patients nurse, about liberalizing diet order. Diet order as been changed to a regular diet. Patient is also interested in nutritional ice cream, providing an additional 290 kcals and 9 gms protein. Agree with diet orders. No further nutritional interventions needed at this time.
--- NOTE | 2021-11-08 12:21 | PM.IMPN ---
Progress Note: A&P Assessment and Plan (1) Syncope: Qualifiers: Encounter type: initial encounter Code(s): R55 - Syncope and collapse Status: Acute Assessment and Plan: - Continues to be Sinus Toro/Sinus - Labs are Unremarkable including TSH and Cortisol. - Chest x-ray without cardiopulmonary abnormality, CT head normal, EKG showing sinus rhythm, bradycardic rate. - Cardiology has been consulted, no new recommendations. Midodrine and meclizine started. - Echocardiogram unremarkable - Loop recorder report without any events - Continue IV fluids - Continue telemetry - Daily orthostatics - Neurology consult when Dr. Amador is back in town on Thursday. - PT vestibular exam with negative [place] hallpike. - ENT consult placed. Query Vestibular Neuritis? - Consider possible Conversion disorder? (2) Dizziness: Code(s): R42 - Dizziness and giddiness Status: Acute Assessment and Plan: - Now most pronounced with movement, example given when walking to the bathroom. Pt. states she has improvement as she is laying in bed and just turning her head side to side. - Meclizine increased today to 12.5 mg Q6 hrs scheduled. -spoke w/ patient's county administrator and her loop recorder is compatible with MRI, however our MRI techs tell me that it is a special kind that needs special monitoring that we do not provide here. I switched the order to CTA head/neck which was normal and showed 0% stenosis of her carotids. -neuro consult placed as dizziness persists, appreciate evaluation and any recommendations, it is my understanding that he will return on Thursday. - Negative [place] Hallpike. - ENT consult placed. - Continue telemetry. - TSH normal (3) Middle ear effusion: Qualifiers: Laterality: unspecified laterality Qualified Code(s): H65.90 - Unspecified nonsuppurative otitis media, unspecified ear Code(s): H65.90 - Unspecified nonsuppurative otitis media, unspecified ear Status: Acute Assessment and Plan: - Pt. was previously prescribed abx at Urgent care secondary to a MABEL. Continuing here, no difference is made in symptoms. - Asymptomatic. (4) PARISH (generalized anxiety disorder): Code(s): F41.1 - Generalized anxiety disorder Status: Acute Assessment and Plan: - Patient on long-term Xanax and clonazepam therapy for her anxiety. We will continue these during her stay. continue vilazodone (SSRI) - Query possible Conversion disorder? To be considered. Additional Plan I sent with the patient in her room as well as her spouse and her parents both and answered questions completely and updated everyone on the current plan of care. Patient was satisfied with our level of interaction upon my exit of the room. Time Spent With Patient Time: 40 minutes Time with patient: Greater than 35 minutes Subjective Date/time seen: 11/08/21 12:21 Pt. was evaluated at the bedside today. She continues to complain of dizziness with intentional movement. She does note that she has some improvement after starting meclizine at rest. She is very anxious and concerned regarding her pulse that she reported dip down into the 30s last night. Cardiology is aware. She is awaiting a neurology consult in which the neurologist will be back on Thursday. In addition the patients has a lot of questions that is answered at the bedside today and they were updated on the plan of care that consists of: ENT consult, await Neurology consult on Thursday, increase doses of midodrine and meclizine, and await any new cardiology recommendations. She denies any CP, dyspnea, N/V. She has no acute headaches and she has no change in her vision. Review of Systems Review of Systems: All systems reviewed & are unremarkable except as noted in HPI and below Exam Const: General: comfortable and no acute distress HENMT: Mouth: Yes moist mucous membranes Eyes: Sclera: sclerae normal Neck: Neck: supple and
[2021-11-08] MEDS: MIDODRINE HCL 2.5 MG TABLET 5 MG PO ×2 (13:39→17:32)
[2021-11-08] MEDS: ALPRAZolam (*CRX) 0.5 MG TABLET 1 MG PO (13:39)
[2021-11-08] MEDS: MECLIZINE HCL 12.5 MG TABLET PO ×3 (13:51→21:08)
--- NOTE | 2021-11-08 15:58 | WPDCN ---
Assessment and Plan Assessment and plan (1) Dizziness: Code(s): R42 - Dizziness and giddiness Status: Acute Assessment and Plan: My impression is that the patient likely has a vestibular neuritis. One could consider discharging on a very low-dose steroid taper starting at 5 mg over several weeks. Follow-up with me as needed for any all otolaryngologic issues. No fluid noted on exam today. (2) Vestibular neuritis: Code(s): H81.20 - Vestibular neuronitis, unspecified ear Status: Acute HPI Data of Consult Date/Time: 11/08/21 15:58 Requesting Physician: EDUARDO Vega Primary Care Provider: Braxton Chau MD Consult Narrative Narrative: Ute Madden is a 56 year old female who present persistent imbalance following an episode of syncope and vertigo 5 days ago. Reports URI prior no hearing changes no real tinnitus. Imaging reviewed no otolaryngologic issues noted per my read. Patient has had a CTA carotids appear good. EKG read as normal. Electrolytes hematologic abnormalities absent. Review of Systems Constitutional: Constitutional: Denies fatigue, Denies fever(s) and Denies lethargy Eyes: Eyes: Denies blurry vision and Denies change in vision ENT: Reports as per HPI Cardiovascular: Cardiovascular: Denies chest pain Respiratory: Respiratory: Denies cough Endocrine: Endocrine: Denies fatigue Hematologic/Lymphatic: Hematologic/Lymphatic: Denies easy bleeding, Denies easy bruising and Denies lymphadenopathy Allergic/Immunologic: Allergic/Immunologic: Denies seasonal rhinorrhea [facility] Past Medical History Medical History Anal skin tag Chronic insomnia Depression Diverticulosis PARISH (generalized anxiety disorder) Paroxysmal SVT (supraventricular tachycardia) Surgical History Surgical History History of cardiac radiofrequency ablation History of loop recorder Social History Social History Social History: Smoking status: Current some day smoker Tobacco type: e-cigarettes/vaping Second hand tobacco smoke exposure: No Alcohol intake: never Substance use: never Substance use type: does not use Gender identity (if verbalized by the patient): Female Sexual Orientation (if Verbalized by the Patient): Straight or Heterosexual Spiritual care concerns: No Meds Home Medications and Allergies Home Medications Medication Instructions Recorded Confirmed Type alprazolam [Xanax] 1 mg PO DAILY 10/31/21 11/04/21 History clonazepam 1 mg PO BID 10/31/21 11/04/21 History estradiol 2 mg PO DAILY 10/31/21 11/04/21 History flecainide 100 mg PO Q12H 10/31/21 11/04/21 History oxybutynin chloride 10 mg PO DAILY 10/31/21 11/04/21 History penicillin V potassium 500 mg PO Q12H 10 Days #20 tablet 10/31/21 11/04/21 Rx vilazodone [Viibryd] 30 mg PO DAILY 10/31/21 11/04/21 History magnesium 500 mg PO DAILY 11/04/21 11/04/21 History ondansetron 4 mg disintegrating 4 mg PO Q6H PRN #10 tablet 11/04/21 11/04/21 Rx tablet polyethylene glycol 3350 [Miralax] 17 g PO DAILY 11/04/21 11/04/21 History loratadine [Claritin] 10 mg PO QPM 11/05/21 11/05/21 History Allergies Allergy/AdvReac Type Severity Reaction Status Date / Time azithromycin [From Zithromax] AdvReac Other Verified 11/04/21 13:13 Vital Signs Vital Signs - 24 hr 11/07/21 16:00 11/07/21 20:00 11/07/21 20:12 Temperature Pulse Rate 53 L 47 L 46 L Respiratory Rate Blood Pressure 102/58 L Pulse Oximetry 11/07/21 20:14 11/07/21 20:23 11/07/21 20:59 Temperature Pulse Rate 52 L 52 L Respiratory Rate Blood Pressure 112/68 Pulse Oximetry 97 11/08/21 00:18 11/08/21 04:00 11/08/21 05:36 Temperature 36.5 C Pulse Rate 44 L 46 L 46 L Respiratory Rate 16 Blood Pressure 110/68 Pulse
[2021-11-08] MEDS: LORATADINE 10 MG TABLET PO (17:32)
[2021-11-08] MEDS: FLECAINIDE ACETATE 100 MG TABLET PO (21:10)
[2021-11-09 00:53] VITALS: PULSE 45
[2021-11-09] MEDS: SODIUM CHLORIDE 0.9% IV 1,000 ML 100 ML IV CONT (04:44)
[2021-11-09 05:58] VITALS: BP 110/58; PULSE 50; RESP 20; TEMP 36.4; O2SAT 100
[2021-11-09] MEDS: clonazePAM (*CRX) 0.5 MG TABLET 1 MG PO (06:00)
[2021-11-09 06:22] LABS: Basophils Percent Auto 0.6 % (0.2-1.2); Eosinophils Absolute Auto 0.1 K/mm3 (0-0.3); Eosinophils Percent Auto 2.5 % (0-4.4); Hematocrit 38.7 % (37.0-47.0); Hemoglobin 12.4 g/dL (12.0-15.0); Immature Granulocyte Absolute 0.01 K/mm3 (0.00-0.031); Immature Granulocyte Percent A 0.2 % (0-0.5); Lymphocytes Absolute Auto 2.55 K/mm3 (0.9-3.2); Lymphocytes Percent Auto 49.6 % (18.3-44.2); Mean Corpuscular Hemoglobin 30.3 pg (26-34); Mean Corpuscular Volume 94.6 fl (80-100); Mean Platelet Volume 9.9 fl (7.4-10.4); Monocytes Absolute Auto 0.4 K/mm3 (0.1-0.6); Monocytes Percent Auto 7.6 % (2.6-8.5); Neutrophils Percent Auto 39.5 % (45.5-73.1); Platelet Count Result 223 k/mm3 (150-375); Red Blood Count 4.09 M/mm3 (4.2-5.4); Red Cell Distribution Width 11.8 % (11.5-14.5); White Blood Count 5.1 K/mm3 (4.5-10.0)
[2021-11-09 06:35] LABS: Alanine Aminotransferase 40 U/L (4-35); Albumin Level 3.4 g/dL (3.5-5.1); Alkaline Phosphatase 37 U/L (38-126); Anion Gap 5 mmol/L (8-16); Aspartate Amino Transferase 52 U/L (14-36); Bilirubin,Total 0.3 mg/dL (0.2-1.3); Blood Urea Nitrogen 6 mg/dL (7-17); Calcium 8.1 mg/dL (8.4-10.2); Carbon Dioxide 26 mmol/L (22-30); Chloride 108 mmol/L (98-107); Estimated CRCL calculation 65 ml/min; Estimated Glomerular Filt Rate > 60; Glucose 83 mg/dL (65-110); Magnesium 1.9 mg/dL (1.6-2.3); Potassium 3.7 mmol/L (3.4-5.0); Sodium 139 mmol/L (137-145)
[2021-11-09 08:00] VITALS: BP 104/49; PULSE 62; PULSE 74
[2021-11-09 08:33] VITALS: BP 106/66; BP 113/58; PULSE 105; PULSE 82
[2021-11-09] MEDS: PENICILLIN V POTASSIUM 250 MG TABLET 500 MG PO (08:57)
[2021-11-09] MEDS: estradioL 1 MG TABLET 2 MG PO (08:57)
[2021-11-09] MEDS: FLECAINIDE ACETATE 100 MG TABLET PO (08:57)
[2021-11-09] MEDS: MIDODRINE HCL 2.5 MG TABLET 5 MG PO (08:58)
[2021-11-09] MEDS: MAGNESIUM 27 MG TABLET (500 MG MAG GLUCONATE) PO (08:58)
[2021-11-09] MEDS: MECLIZINE HCL 12.5 MG TABLET PO (08:58)
[2021-11-09] MEDS: polyethylene glycoL 3350 17 GM POWD.PACK PO (08:59)
[2021-11-09] MEDS: ENOXAPARIN 40 MG/0.4 ML SYRINGE SUB-Q (08:59)
--- NOTE | 2021-11-09 10:00 | PM.DS ---
DS: Admitting Diagnosis Discharge Date 11/09/2021 Admitting Diagnosis Dizziness DS: Discharge Diagnosis Discharge Diagnosis (1) Syncope: Qualifiers: Encounter type: initial encounter Code(s): R55 - Syncope and collapse Status: Acute Assessment and Plan: -bradycardia has improved - Labs are Unremarkable including TSH and Cortisol. - Chest x-ray without cardiopulmonary abnormality, CT head normal, EKG showing sinus rhythm, bradycardic rate. - Cardiology has been consulted, no new recommendations. Midodrine and meclizine started. Patient condition improved today patient want to go home today - Echocardiogram unremarkable - Loop recorder report without any events -encourage oral hydration. - PT vestibular exam with negative [place] hallpike. - ENT probable vestibular neurologist follow-up with ENT in 1 week (2) Dizziness: Code(s): R42 - Dizziness and giddiness Status: Acute Assessment and Plan: Multifactorial most likely related to dehydration orthostatic hypotension and vestibular neuritis Added midodrine Follow-up with neurology and Cardiology as outpatient (3) Middle ear effusion: Qualifiers: Laterality: unspecified laterality Qualified Code(s): H65.90 - Unspecified nonsuppurative otitis media, unspecified ear Code(s): H65.90 - Unspecified nonsuppurative otitis media, unspecified ear Status: Acute Assessment and Plan: Continue current treatment follow-up with ENT in 1 week. (4) PARISH (generalized anxiety disorder): Code(s): F41.1 - Generalized anxiety disorder Status: Acute Assessment and Plan: - Patient on long-term Xanax and clonazepam therapy for her anxiety. We will continue these during her stay. continue vilazodone (SSRI) DS: Summary Hospital Course Hospital Course: 56 years old female was admitted to the hospital with vertigo and dizziness was found to have orthostatic hypotension cardiology was consulted was treated with IV hydration also patient has vestibular neuritis ENT was consulted patient to follow-up with ENT and Neurology as outpatient Patient condition significantly improved dizziness has improved vertigo as improved patient to follow-up with ENT cardiology and Neurology as outpatient patient is adamant about going home today Time Spent with Patient Time attestation: Total time spent providing and/or coordinating discharge services: Exam Narrative: Alert Chest no wheeze crackles Abdomen nontender nondistended CVS S1 + S2 Lower extremity edema DS: Data Data Completed and Pending Labs on day of discharge: Labs from last 24 hours 11/09/21 11/09/21 06:01 06:01 WBC 5.1 RBC 4.09 L Hgb 12.4 Hct 38.7 MCV 94.6 MCH 30.3 MCHC 32.0 RDW 11.8 Plt Count 223 MPV 9.9 Immature Gran % (Auto) 0.2 Neut % (Auto) 39.5 L Lymph % (Auto) 49.6 H Mccormick % (Auto) 7.6 Eos % (Auto) 2.5 Baso % (Auto) 0.6 Lymph # (Auto) 2.55 Mccormick # (Auto) 0.4 Eos # (Auto) 0.1 Baso # (Auto) 0.0 Abs Immat Gran (auto) 0.01 Absolute Neuts (auto) 2.0 Absolute Nucleated RBC 0.0 Nucleated RBC % 0.0 Sodium 139 Potassium 3.7 Chloride 108 H Carbon Dioxide 26 Anion Gap 5 L BUN 6 L Creatinine 0.80 Estim Creat Clear Calc 65 Estimated GFR > 60 Glucose 83 Calcium 8.1 L Magnesium 1.9 Total Bilirubin 0.3 AST 52 H ALT 40 H Alkaline Phosphatase 37 L Total Protein 6.0 L Albumin 3.4 L Discharge Plan Discharge Attending physician on discharge: Ethan Plummer M.A. Consulting providers: Luis Armando Horton ; Marcos Amador Joel Discharging Clinician: Ethan Plummer M.A. Patient Disposition: Home, Self-Care Activity: as tolerated Diet: heart healthy Patient Instructions: Antibiotic Form Stand Alone Forms: General Discharge Information Follow-up/Referrals: Braxton Chau MD [Primary Care Provider] - F
== END 2021-11-09 11:43 | disposition home or self-care (01) | DRG 312 ==
LOC: ANHED 15:22 → ANH3MED 15:41
PROVIDERS: Internal Medicine Cardiovascular Disease; Student in an Organized Health Care Education/Training Program; Admitting Provider Family Medicine; Emergency Provider Emergency Medicine; PCP Family Medicine; Visit Provider Nurse Practitioner Adult Health
DX: I95.1 Orthostatic hypotension (principal); I47.1 Supraventricular tachycardia; H81.20 Vestibular neuronitis, unspecified ear; E86.0 Dehydration; F51.04 Psychophysiologic insomnia; F32.A Depression, unspecified; F41.1 Generalized anxiety disorder; F17.290 Nicotine dependence, other tobacco product, uncomplicated; J02.0 Streptococcal pharyngitis; H66.90 Otitis media, unspecified, unspecified ear
CPT/HCPCS: 36415; 70450; 70496; 70498; 71045; 80048; 80053; 81003; 82533; 83605; 83735; 84134; 84443; 84484; 85025; 85610; 85730; 87804; 93005; 93306; 96360; 96361; 96372; 97161; 99285; A9270; G0378; J1650; J7030; Q9967

== ENCOUNTER 2022-02-04 15:29 | Outpatient (CLI) | payer OTHER, SELFPAY ==
--- NOTE | ~2022-02-04 | CT_ITS ---
EXAMINATION: CT abdomen pelvis wo/w con DATE: 02/04/2022 16:15 INDICATION: Gross hematuria TECHNIQUE: Computed tomography (CT) of the abdomen and pelvis was performed without and subsequently with 130 CC Omnipaque 350 intravenous contrast. Automated exposure control and iterative reconstructi on technique were employed. Exam dose: 726.98 mGy-cm total exam DLP. COMPARISON: 02/04/2022 KUB FINDINGS: The lung bases are clear of infiltrate or consolidation. Normal heart size. No pericardial or pleural effusion. The liver, gallbladder, bile ducts, spleen, pancreas, pancreatic duct, and adrenal glands and kidneys are otherwise unremarkable except for a very small medial upper pole left renal cyst.. No renal mass lesion or urinary tract calculus or hydroureteronephrosis is detected. The urinary bladder is unrema rkable. Small fat-containing umbilical hernia. Normal appendix. There is mild colonic diverticulosis; no CT evidence of diverticulitis. No bowel obstruction, bowel w all thickening, pneumatosis or intraperitoneal free air. Status post hysterectomy. Mild abdominal aortic calcification; no abdominal aortic aneurysm. No intraperitoneal or retroperitoneal or pelvic mass lesion or adenopathy or ascites. Included skeletal structures are unremarkable. IMPRESSION: No urinary tract calculus, hydroureteronephrosis or suspicious mass lesion Status post hysterectomy Normal appendix Mild colonic diverticulosis; no evidence of diverticulitis Reviewed, dictated and finalized at [facility]. Reviewed, dictated and finalized at [facility]. IMPRESSION: No urinary tract calculus, hydroureteronephrosis or suspicious mas s lesion Status post hysterectomy Normal appendix Mild colonic diverticulosis; no evidence of diverticulitis
--- NOTE | ~2022-02-04 | XR_ITS ---
EXAM: XR abdomen/kub 1V DATE: 02/04/2022 15:51 HISTORY: BLOOD IN URINE. HX DIVERTICULOSIS . COMPARISON: 11/20/2020, CT abdomen pelvis 02/04/2022. FINDINGS: Clear lung bases. Normal bowel gas pattern. Enlarged liver. Pelvic phleboliths. Regional b ones and soft tissues normal for age. IMPRESSION: Hepatomegaly, otherwise unremarkable abdominal radiograph findings. Reviewed, dictated and finalized at location [facility].
== END 2022-02-04 15:30 | disposition home or self-care (01) ==
PROVIDERS: PCP Family Medicine; Visit Provider Nurse Practitioner Adult Health
DX: R31.0 Gross hematuria (principal); Z90.710 Acquired absence of both cervix and uterus; K57.90 Diverticulosis of intestine, part unspecified, without perforation or abscess without bleeding; R16.0 Hepatomegaly, not elsewhere classified
CPT/HCPCS: 74018; 74178; Q9967

== ENCOUNTER → 2022-10-31 15:10 | Outpatient (CLI) | payer OTHER, SELFPAY ==
--- NOTE | ~2022-10-31 | MM_ITS ---
EXAMINATION: MM screening ipa BI w terri HISTORY: Screening mammogram TECHNIQUE: Craniocaudal and mediolateral oblique 3-D tomosynthesis images were obtained and synthetic 2-D images were generated. CAD analysis was submitted and interpreted. COMPARISON: October 29, 2021, August 27, 2020, June 25, 2020 bilateral screening mammogram examin ations BREAST PARENCHYMAL COMPOSITION: There are scattered areas of fibroglandular density. FINDINGS: A monitoring device overlies the inner aspect of the left breast. There is no evidence of s uspicious mass, calcification, or architectural distortion to suggest malignancy in either breast. Th ere has been no suspicious interval change. IMPRESSION: 1. No mammographic evidence of malignancy. 2. Recommend routine screening mammography in one year. 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
== END ==
PROVIDERS: PCP Registered Nurse; Visit Provider Nurse Practitioner Family
DX: Z12.31 Encounter for screening mammogram for malignant neoplasm of breast (principal)
CPT/HCPCS: 77063; 77067

== ENCOUNTER 2023-05-24 10:01 | Emergency (ER) | payer OTHER, SELFPAY ==
[2023-05-24 10:13] VITALS: BP 94/67; PULSE 75; RESP 16; TEMP 36.3; O2SAT 99
--- NOTE | 2023-05-24 10:29 | ED.URI ---
HPI - URI/Sore Throat General Chief Complaint: Upper Respiratory Infection Stated Complaint: headache/sinus/throat/ear Time Seen by Provider: 05/24/23 10:29 Source: patient and RN notes reviewed Mode of arrival: ambulatory Limitations: no limitations History of Present Illness HPI Narrative: 58-year-old female presents with concern for 3 day history of sinus headache, sinus congestion, ear pain and cough. She reports sore throat and neck pain. Reports [id number] medications temporarily help her symptoms. She reports body aches, chills, sweats. Denies fever MD elicited complaint: sore throat, nasal congestion and sinus pain Related Data Home Medications Medication Instructions Recorded Confirmed clonazepam 1 mg tablet 1 mg PO BID 10/31/21 12/08/22 estradiol 2 mg tablet 2 mg PO DAILY 10/31/21 12/08/22 polyethylene glycol 3350 17 17 g PO DAILY 11/04/21 12/08/22 gram/dose oral powder (Miralax) aspirin 81 mg tablet,delayed 81 mg PO DAILY 11/12/21 12/08/22 release (Adult Aspirin Regimen) alprazolam 1 mg tablet (Xanax) 1.5 mg PO DAILY 10/21/22 12/08/22 magnesium 500 mg tablet 250 mg PO DAILY 10/21/22 12/08/22 Allergies Allergy/AdvReac Type Severity Reaction Status Date / Time fentanyl AdvReac Mild Nausea and Verified 12/08/22 10:51 Vomiting azithromycin [From Zithromax] AdvReac Other Verified 12/08/22 10:51 Review of Systems Review of Systems: CONSTITUTIONAL: Reports malaise, chills, sweats. Denies fever. EYES: Denies visual changes, redness, or discharge. ENT: Reports rhinorrhea, congestion, sinus pain, otalgia and sore throat. CARDIOVASCULAR: Denies chest pain, palpitations, or edema. RESPIRATORY: Reports cough. Denies dyspnea. GASTROINTESTINAL: Denies abdominal pain, nausea, vomiting, diarrhea SKIN: Denies rash or itching. MUSCULOSKELETAL: Reports myalgia. NEUROLOGIC: Reports headache. All systems reviewed & are unremarkable except as noted in HPI and below PMFSH Past Medical History Medical History Anal skin tag Chronic insomnia Depression Diverticulosis PARISH (generalized anxiety disorder) Paroxysmal SVT (supraventricular tachycardia) Surgical History Surgical History History of cardiac radiofrequency ablation History of loop recorder Social History Social History Social History: Smoking status: Current some day smoker Tobacco type: e-cigarettes/vaping Second hand tobacco smoke exposure: No Alcohol intake: never Substance use: never Substance use type: does not use Living arrangements: with family Occupation/Education: unemployed Gender identity (if verbalized by the patient): Female Sexual Orientation (if Verbalized by the Patient): Straight or Heterosexual Spiritual care concerns: No Comments At time of signature, agree with nursing past medical, surgical, social and family history. There is no relevant family history pertinent to the presenting complaint Exam Narrative: GENERAL: Well-appearing, well-nourished, and in no acute distress. HEAD: Normocephalic EYES: PERRLA, conjunctivae clear ENT: Nares clear, turbinates edematous and erythematous, clear discharge. Mucous membranes moist. TM pearly mancera with sharp light reflex bilaterally; no tragal tenderness. Oropharynx not erythematous without lesions. Tonsils not enlarged and without exudate, no drooling, no hoarseness, no trismus, uvula midline. NECK: Supple. No lymphadenopathy CHEST: Clear to auscultation, breath sounds equal. No wheezing, rhonchi, rales, or stridor. No respiratory distress, speaks in full sentences. HEART: Regular rate and rhythm. No murmur heard. SKIN: Warm, dry, no rash. NEURO: Alert and oriented x3. PSYCH: Normal mood and affect Course Course Emergency Course: Patient is aware of diagnosis, understands and a
== END 2023-05-24 11:03 | disposition home or self-care (01) ==
PROVIDERS: Emergency Provider Nurse Practitioner; PCP Registered Nurse
DX: B34.9 Viral infection, unspecified (principal); Z20.822 Contact with and (suspected) exposure to COVID-19; F17.290 Nicotine dependence, other tobacco product, uncomplicated; F41.1 Generalized anxiety disorder; Z79.82 Long term (current) use of aspirin
CPT/HCPCS: 87081; 87426; 87804; 87880; 99213; C9803; G0463

== ENCOUNTER 2023-06-12 12:44 | Emergency (ER) | payer OTHER, SELFPAY ==
--- NOTE | ~2023-06-12 | XR_ITS ---
XR finger 3rd LT min 2V 06/12/2023 13:17 INDICATION: Left third finger pain PROCEDURE: 4 views left third finger COMPARISON: No prior studies for comparison. FINDINGS: Fracture, dislocation or subluxation is not identified. The soft tissues appear within norm al limits. No foreign bodies are identified. IMPRESSION: 1: NO ACUTE BONE OR JOINT ABNORMALITY IDENTIFIED. Reviewed, dictated and finalized at location B. L INSPECTOR
[2023-06-12 12:50] VITALS: BP 108/61; PULSE 56; RESP 16; TEMP 35.8; O2SAT 100
--- NOTE | 2023-06-12 14:12 | ED.GENADULT ---
HPI - General Adult General Chief complaint: Extremity Injury, Upper Stated complaint: Finger Injury Time Seen by Provider: 06/12/23 13:55 Source: patient, RN notes reviewed and old records reviewed Mode of arrival: ambulatory Limitations: no limitations History of Present Illness HPI narrative: 58-year-old female who presents to [facility] with complaints of injury to her left 3rd finger which occurred about an hour ago at her home. Patient states she accidentally smashed in the door going into her laundry room. Patient has swelling and bruising to the mid aspect left 3rd finger. Is able to move her finger but with pain, denies any tingling or numbness to her left middle finger or to left hand. MD complaint: injury to left middle finger Onset (ago): hour(s) (one hour prior to arrival) Location: left (3rd finger) and upper extremity Severity scale (1-10): 7 Quality: aching Treatments prior to arrival: cold therapy Related Data Home Medications Medication Instructions Recorded Confirmed clonazepam 1 mg tablet 1 mg PO BID 10/31/21 12/08/22 estradiol 2 mg tablet 2 mg PO DAILY 10/31/21 12/08/22 polyethylene glycol 3350 17 17 g PO DAILY 11/04/21 12/08/22 gram/dose oral powder (Miralax) aspirin 81 mg tablet,delayed 81 mg PO DAILY 11/12/21 12/08/22 release (Adult Aspirin Regimen) alprazolam 1 mg tablet (Xanax) 1.5 mg PO DAILY 10/21/22 12/08/22 magnesium 500 mg tablet 250 mg PO DAILY 10/21/22 12/08/22 cefdinir 300 mg capsule mg 06/12/23 paroxetine HCl 20 mg tablet mg PO 06/12/23 Allergies Allergy/AdvReac Type Severity Reaction Status Date / Time fentanyl AdvReac Mild Nausea and Verified 06/12/23 13:04 Vomiting azithromycin [From Zithromax] AdvReac Other Verified 06/12/23 13:04 Review of Systems Review of Systems: CONSTITUTIONAL: Denies fever, chills, or sweats. EYES: Denies visual changes, redness, or discharge. ENT: Denies rhinorrhea, congestion, sore throat, or otalgia. CARDIOVASCULAR: Denies chest pain, palpitations, or edema. RESPIRATORY: Denies cough or dyspnea. GASTROINTESTINAL: Denies abdominal pain, nausea, vomiting, or diarrhea. GENITOURINARY: Denies dysuria or hematuria. SKIN: Denies rash or itching. MUSCULOSKELETAL: Denies back pain, positive for pain and injury to left 3rd finger, or myalgia. NEUROLOGIC: Denies headache, numbness, or weakness. PSYCHIATRIC: Reports history of anxiety or depression. All systems reviewed & are unremarkable except as noted in HPI and below PMFSH Past Medical History Medical History (Updated 06/14/23 @ 07:29 by Dot Padilla NP) Anal skin tag Chronic insomnia Depression Diverticulosis PARISH (generalized anxiety disorder) Paroxysmal SVT (supraventricular tachycardia) Surgical History Surgical History (Updated 06/14/23 @ 07:33 by Dot Padilla NP) H/O hysterectomy with unilateral oophorectomy History of cardiac radiofrequency ablation History of loop recorder History of tonsillectomy Social History Social History Social History: Smoking status: Current some day smoker Tobacco type: e-cigarettes/vaping Second hand tobacco smoke exposure: No Alcohol intake: never Substance use: never Substance use type: does not use Living arrangements: with family Occupation/Education: unemployed Gender identity (if verbalized by the patient): Female Sexual Orientation (if Verbalized by the Patient): Straight or Heterosexual Spiritual care concerns: No Comments At time of signature, agree with nursing past medical, surgical, social and family history. There is no relevant family history pertinent to the presenting complaint Exam Narrative: GENERAL: Well-appearing, well-nourished, and in no acute distress. HEAD: Normocephalic, atraumatic. EYES: PERRLA and EOMI. ENT: Nares clear, no rhinorrhea or epistaxis. Mucous membranes moist. NECK: Supple. no lymphadenopathy C
== END 2023-06-12 14:27 | disposition home or self-care (01) ==
PROVIDERS: Emergency Provider Registered Nurse; PCP Registered Nurse
DX: S60.032A Contusion of left middle finger without damage to nail, initial encounter (principal); F41.9 Anxiety disorder, unspecified; F32.A Depression, unspecified; F17.290 Nicotine dependence, other tobacco product, uncomplicated; Z79.899 Other long term (current) drug therapy; W23.0XXA Caught, crushed, jammed, or pinched between moving objects, initial encounter; Y92.009 Unspecified place in unspecified non-institutional (private) residence as the place of occurrence of the external cause
CPT/HCPCS: 29130; 73140; 99213; G0463

== ENCOUNTER 2024-02-11 09:57 | Emergency (ER) | payer OTHER, SELFPAY ==
[2024-02-11 10:07] VITALS: BP 130/69; PULSE 76; RESP 18; TEMP 36.2; O2SAT 100
--- NOTE | 2024-02-11 10:07 | ED.GENADULT ---
HPI - General Adult General Chief complaint: Urogenital-Female Stated complaint: Urinary Problem Time Seen by Provider: 02/11/24 10:07 Source: patient, RN notes reviewed and old records reviewed Mode of arrival: ambulatory Limitations: no limitations History of Present Illness HPI narrative: 58-year-old female to [facility] a complaint diffuse dull abdominal discomfort and bilateral lower back pain that she rates 3-4/10 currently and states was 10/10 last night. Patient also endorsing nausea, urinary frequency, urinary urgency. Patient states all symptoms have been present for 1 week. Patient states that she saw PCP 3 days ago for a preop appointment. Patient scheduled to her gallbladder removed on February 21. Patient states that she disclosed her abdominal discomfort to PCP but she did not have time during that appointment to elaborate on her urinary symptoms or pain. Patient reports bowel movement was this morning and is normal compared to her baseline bowel movements. Patient denies fever, vomiting, constipation, saddle anesthesia, weakness, numbness, incontinence of bowel or bladder. Related Data Home Medications Medication Instructions Recorded Confirmed clonazepam 1 mg tablet 1 mg PO BID 10/31/21 12/08/22 estradiol 2 mg tablet 2 mg PO DAILY 10/31/21 12/08/22 polyethylene glycol 3350 17 17 g PO DAILY 11/04/21 12/08/22 gram/dose oral powder (Miralax) aspirin 81 mg tablet,delayed 81 mg PO DAILY 11/12/21 12/08/22 release (Adult Aspirin Regimen) alprazolam 1 mg tablet (Xanax) 1.5 mg PO DAILY 10/21/22 12/08/22 magnesium 500 mg tablet 250 mg PO DAILY 10/21/22 12/08/22 sertraline 25 mg tablet mg 02/11/24 Allergies Allergy/AdvReac Type Severity Reaction Status Date / Time fentanyl AdvReac Mild Nausea and Verified 02/11/24 09:59 Vomiting azithromycin [From Zithromax] AdvReac Other Verified 02/11/24 09:59 Review of Systems Review of Systems: All systems reviewed & are unremarkable except as noted in HPI and below Constitutional: Constitutional: Reports no additional constitutional complaints Eyes: Eyes: Reports no additional eye complaints ENT: Reports system reviewed and no additional complaints, except as documented Cardiovascular: Cardiovascular: Reports no additional cardiovascular complaints, Denies chest pain and Denies dyspnea Respiratory: Respiratory: Reports no additional respiratory complaints, Denies cough and Denies dyspnea Gastrointestinal: Gastrointestinal: Reports as per HPI, Reports abdominal pain ( diffuse), Denies belching, Denies melena, Denies bloating, Denies hematochezia, Denies change in bowel habits, Denies tenesmus, Denies change in stool character, Denies coffee ground emesis, Denies constipation, Denies dysphagia, Denies excessive flatus, Denies fecal incontinence, Denies diarrhea, Denies nausea, Denies odynophagia, Denies vomiting and Denies hematemesis Genitourinary: Genitourinary: Reports as per HPI, Denies hematuria, Reports nocturia, Denies dysuria, Denies flank pain, Denies urinary incontinence and Reports urinary urgency Musculoskeletal: Musculoskeletal: Reports no additional musculoskeletal complaints Neurologic: Reports system reviewed and no additional complaints, except as documented Psychiatric: Psychiatric: Reports no additional psychiatric complaints PMFSH Past Medical History Medical History Anal skin tag Chronic insomnia Depression Diverticulosis PARISH (generalized anxiety disorder) Paroxysmal SVT (supraventricular tachycardia) Surgical History Surgical History H/O hysterectomy with unilateral oophorectomy History of cardiac radiofrequency ablation History of loop recorder History of tonsillectomy Social History Social History Social History: Smoking status: Current
[2024-02-11 10:16] LABS: EDUAAPPEAR Cloudy; EDUABILI Negative; EDUABLOOD Negative; EDUACOLOR1 Yellow; EDUAGLUCOSE Negative; EDUAKETONE Negative; EDUALEUKO Negative; EDUANITRATE Negative; EDUAPROTEIN Negative; EDUASPGRAVITY 1.025; EDUAUROBILI 0.2
--- NOTE | 2024-02-11 10:50 | PC.NURSE ---
provider to provider report in progress. requested [facility] for further evaluation.
--- NOTE | 2024-02-11 10:55 | PC.NURSE ---
requested to go outside and lock car. aware of awaiting ems to transfer to er.
== END 2024-02-11 11:19 | disposition short-term general hospital (02) ==
PROVIDERS: Emergency Provider Nurse Practitioner Family; PCP Registered Nurse
DX: R10.9 Unspecified abdominal pain (principal); R35.0 Frequency of micturition; F17.290 Nicotine dependence, other tobacco product, uncomplicated; F41.1 Generalized anxiety disorder; Z79.82 Long term (current) use of aspirin
CPT/HCPCS: 81003; 87086; 99215; G0463

== ENCOUNTER 2024-07-04 10:59 | Emergency (ER) | payer OTHER, SELFPAY ==
[2024-07-04 11:04] VITALS: BP 118/49; PULSE 58; RESP 20; TEMP 36.7; O2SAT 100
[2024-07-04 11:46] LABS: EDINFLUASCREEN Negative (Negative); EDINFLUBSCREEN Negative (Negative)
--- NOTE | 2024-07-04 12:01 | ED.URI ---
HPI - URI/Sore Throat General Chief Complaint: Upper Respiratory Infection Stated Complaint: flu symptoms Time Seen by Provider: 07/04/24 11:45 Source: patient, RN notes reviewed and old records reviewed Mode of arrival: ambulatory Limitations: no limitations History of Present Illness HPI Narrative: 59 year old female who [facility] with complaints of nausea vomiting and diarrhea which started on [place] and reports that vomiting has stopped, some continued nausea and rare episode of diarrhea.. Patient reports that she states today that for the past 2 days she has had body aches, headache and her ears hurt. Patient reports that she took home COVID test which was negative. Patient reports that she has taken Zofran and also Ibuprofen but has not taken any today. MD elicited complaint: cough and other (NVD body aches headache and ear pain) Onset (ago): day(s) (5 days ago NVD, 2 days headache, ear pain, body aches) Pain scale (0-10): 6 Able to tolerate fluids by mouth: Yes Treatments prior to arrival: ibuprofen and other (zofran) Related Data Home Medications ?Medication ?Instructions ?Recorded ?Confirmed ?Last Taken ?Type clonazepam 1 mg tablet 1 mg PO BID 10/31/21 12/08/22 11/04/21 History estradiol 2 mg tablet 2 mg PO DAILY 10/31/21 12/08/22 11/04/21 History aspirin 81 mg tablet,delayed 81 mg PO DAILY 11/12/21 12/08/22 Unknown History release (Adult Aspirin Regimen) alprazolam 1 mg tablet (Xanax) 1.5 mg PO DAILY 10/21/22 12/08/22 Unknown History sertraline 25 mg tablet mg 02/11/24 Unknown History Allergies Allergy/AdvReac Type Severity Reaction Status Date / Time fentanyl AdvReac Mild Nausea and Verified 07/04/24 11:11 Vomiting azithromycin (From Zithromax) AdvReac Other Verified 07/04/24 11:11 Review of Systems Review of Systems: CONSTITUTIONAL: Reports malaise, chills, sweats, or fever. EYES: Denies visual changes, redness, or discharge. ENT: Reports rhinorrhea, congestion, sinus pain, left otalgia and no sore throat. CARDIOVASCULAR: Denies chest pain, palpitations, or edema. RESPIRATORY: Reports cough.? Denies dyspnea. GASTROINTESTINAL: Denies abdominal pain,positive for nausea, vomiting resolved , diarrhea few episodes SKIN: Denies rash or itching. MUSCULOSKELETAL: Reports myalgia. NEUROLOGIC: Reports headache. All systems reviewed & are unremarkable except as noted in HPI and below PMFSH Past Medical History Medical History Anal skin tag Diverticulosis Chronic insomnia PARISH (generalized anxiety disorder) Depression Paroxysmal SVT (supraventricular tachycardia) Surgical History Surgical History H/O hysterectomy with unilateral oophorectomy History of tonsillectomy History of cardiac radiofrequency ablation History of loop recorder Social History Social History Social History: Smoking status: Current some day smoker Tobacco type: e-cigarettes/vaping Second hand tobacco smoke exposure: No Alcohol intake: never Substance use: never Substance use type: does not use Living arrangements: with family Occupation/Education: unemployed Gender identity (if verbalized by the patient): Female Sexual Orientation (if Verbalized by the Patient): Straight or Heterosexual Spiritual care concerns: No Comments At time of signature, agree with nursing past medical, surgical, social and family history. There is no relevant family history pertinent to the presenting complaint Exam Narrative: GENERAL: Well-appearing, well-nourished, and in no acute distress. HEAD: Normocephalic EYES: PERRLA, conjunctivae clear ENT: Nares clear, turbinates edematous and erythematous, clear discharge. Mucous membranes moist.Left TM red, Right TM pearly mancera with dull light reflex; no tragal tenderness. Oropharynx erythematous without lesions. Tonsils not present and throat without exudate, no drooling, no hoarseness, no trismus, uvula midline.post nasal drainage NECK: Supple. No lymphadenopathy CHEST: Clear to auscultation, breath sounds equal. No wheezing, rhonchi, rales, or stridor. No respiratory distress, speaks in full sentences.SAO2 100% on room air HEART: Regular rate and rhythm. No murmur heard. SKIN: Warm, dry, no rash. NEURO: Alert and oriented x3. PSYCH: Normal mood and affect Course Course Emergency Course: Patient is aware of diagnosis, understands and agrees to treatment plan.? Anticipatory guidance given.? Patient agrees to follow-up as directed and is aware of reasons to seek care at the emergency department. Portions of this record may have been created with voice recognition software Level of Care: Express Care Visit Vital Signs Vital signs: Vital Signs Temperature 36.7 C 07/04/24 11:04 Pulse Rate 58 L 07/04/24 11:04 Respiratory Rate 20 07/04/24 11:04 Blood Pressure 118/49 L 07/04/24 11:04 Pulse Oximetry 100 07/04/24 11:04 Oxygen Delivery Room Air 07/04/24 11:04 Temperature 36.7 C 07/04/24 11:04 Pulse Rate 58 L 07/04/24 11:04 Respiratory Rate 20 07/04/24 11:04 Blood Pressure 118/49 L 07/04/24 11:04 Pulse Oximetry 100 07/04/24 11:04 Oxygen Delivery Room Air 07/04/24 11:04 Reviewed MDM - URI/Sore Throat MDM Narrative Medical decision making narrative: Differential diagnosis considered: Prakash virus, strep pharyngitis, allergic rhinitis, upper respiratory tract infection, sinusitis, rhinosinusitis, nasopharyngitis. viral pharyngitis, otitis media, otitis externa, pneumonia, bronchitis, viral cough syndrome, viral syndrome, and influenza.? Exam findings show no acute concerns or changes; patient is non-toxic appearing and is in no distress.? Patient is appropriate for outpatient treatment and follow-up. Differential Diagnosis Differential diagnosis: Likely upper respiratory infection, otitis media, viral infection, influenza and other (nausea) Medical Records Attestation: I reviewed the patient's medical records. Lab Data Attestation: I reviewed the patient's lab results. Lab results narrative: Influenza A negative, Influenza B negative Labs: Lab Results 07/04/24 Range/Units 11:44 POC Influenza A Ag Negative (Negative) POC Influenza B Ag Negative (Negative) Critical Care Time Critical Care Time Critical Care Time: No Discharge Plan Discharge Clinical Impression: Nausea alone Left otitis media Qualifiers: Otitis media type: serous Chronicity: acute Recurrence: non-recurrent Qualified Code(s): H65.02 - Acute serous otitis media, left ear Patient Disposition: Home, Self-Care Condition: Stable Instructions: Antibiotic Form, Ear Infection (GEN) Additional Instructions: Increase fluids especially juices and water [id number] cough and cold medicine of your choice for your symptoms Zyrtec Claritin or Britni daily may use plain Sudafed in a.m. and early p.m. Tylenol or ibuprofen for any fever pain Continue your Zofran for nausea heat to the face 20-30 minutes 4-6 times a day for pain Salt water gargles, throat lozenges or throat sprays as desired Antibiotic as directed--finished the medication If your symptoms persist, change or worsen significantly before you can contact your personal physician then please, without delay, go to the emergency department for further evaluation. Follow-up with PCP in 7-10 days or sooner if needed Patient Language: Ecuadorean Prescriptions: New amoxicillin 500 mg capsule 500 mg PO TID Qty: 30 0RF No Action clonazepam 1 mg Tablet 1 mg PO BID estradiol 2 mg Tablet 2 mg PO DAILY alprazolam [Xanax] 1 mg tablet 1.5 mg PO DAILY Rx Instructions: takes at around 12-1 sertraline 25 mg tablet aspirin [Adult Aspirin Regimen] 81 mg tablet,delayed release (DR/EC) 81 mg PO DAILY omeprazole 20 mg capsule,delayed release(DR/EC) 20 mg PO DAILY 30 Days Qty: 30 2RF Follow-up/Referrals: [place]anna,SARMAD Allen [Primary Care Provider] - Time of Disposition: 12:09 Quality Gaetano Coma Scale Eyes: Open Verbal: Oriented and Alert Motor: Follows Commands Minier Coma Total Score: 15
== END 2024-07-04 12:16 | disposition home or self-care (01) ==
PROVIDERS: Emergency Provider Registered Nurse; PCP Registered Nurse
DX: R11.0 Nausea (principal); H65.02 Acute serous otitis media, left ear; F17.290 Nicotine dependence, other tobacco product, uncomplicated; F41.1 Generalized anxiety disorder; Z79.82 Long term (current) use of aspirin
CPT/HCPCS: 87804; 99213; G0463

== ENCOUNTER 2025-01-15 11:18 | Emergency (ER) | payer OTHER, SELFPAY ==
--- OUTSIDE RECORDS SUMMARY | 2025-01-15 11:21 | XMS_ITS | Clinical Summary ---
Author Organization [facility] Address [address] [place] [address] Phone Care Team Providers Care Medical Social Worker Name Role Phone Tiffany Corrales APRN, CNP Primary Care Provider + Medications albuterol 108 (90 Base) MCG/ACT Aerosol Solution take 2 Puffs by inhalation every 6 hours as needed for Cough or Wheezing. 6.7 g Active Encounters Date Type Department Care Team Description 11/27/2024 6:07 PM CDT - 11/27/2024 9:13 PM CDT Emergency [facility] [address] [place] [address] Amber Galvin APRN, CNP COVID Discharge Disposition: Discharged to home or Selfcare 11/27/2024 Travel from Last 3 Months Social History Tobacco Use Types Packs/Day Years Used Date Smoking Tobacco: Never Assessed Comments No Sex and Gender Information Value Date Recorded Sex Assigned at Not on file Legal Sex Female 7:14 PM CDT Gender Identity Not on file Sexual Orientation Not on file Last Filed Vital Signs Vital Sign Reading Time Taken Comments Blood Pressure 106/60 11/27/2024 9:03 PM CDT Pulse 72 11/27/2024 9:03 PM CDT Temperature 36.8 C (98.3 F) 11/27/2024 5:52 PM CDT Respiratory Rate 16 11/27/2024 9:03 PM CDT Oxygen Saturation 98% 11/27/2024 9:03 PM CDT Inhaled Oxygen Concentration - - Weight 70.3 kg (155 lb) 11/27/2024 5:52 PM CDT Height 170.2 cm (5' 7) 11/27/2024 5:52 PM CDT Body Mass Index 24.28 11/27/2024 5:52 PM CDT Plan of Treatment Health Maintenance Due Date Last Done Comments Hepatitis B Immunization (1 of 3 - 19+ 3-dose series) 1985 Pap Smear 1987 Cervical Cancer Screening (CCS) 1996 HPV/Cotest 1996 Cologuard 2011 Immunochemical Fecal Occult Blood 2011 SARS-COV-2 Immunization ( season) 2024 04/19/2021, 10/09/2020, 09/11/2020 Zoster Immunization (2 of 2) 05/17/2024 03/22/2024 Influenza Immunization (#1) 03/06/202503/06, 05/14/2023, 04/06/2023, Additional history exists Mammogram 10/05/2025 10/05/2024, 04/0 08/2024, 10/05/2024, Additional history exists Colonoscopy 01/12/2033 01/12/2023 Colorectal Cancer Screening 01/12/2033 Respiratory Syncytial Virus (RSV) Immunization (Adult) (1 - 1-dose 75+ series) 2041 Hepatitis C Virus (HCV) Screening Completed 07/17/2022 Pneumococcal Immunization (50+ years) Completed 07/17/2023, 04/06/2023 TdaP Immunization Completed 03/22/2024, 01/20/2014 Human Papillomavirus (HPV) Immunization Aged Out No longer eligible based on patient's age to complete this topic Meningococcal Immunization (ACWY) Aged Out No longer eligible based on patient's age to complete this topic Rotavirus Immunization Aged Out No lo nger eligible based on patient's age to complete this topic Procedures Procedure Name Priority Date/Time Associated Diagnosis Comments XR CHEST 2 VIEWS STAT 11/27/2024 7:41 PM CDT URINALYSIS REFLEX IF INDICATED BY ABNORMAL RESULTS STAT 11/27/2024 7:35 PM CDT from Last 3 Months Results * XR CHEST 2 VIEWS (11/27/2024 7:41 PM CDT) Anatomical Region Laterality Modality Chest N/A Digital Radiogra phy 11/27/2024 8:36 PM CDT Impressions 11/27/2024 8:39 PM CDT IMPRESSION: Emphysematous changes without acute findings. Narrative 11/27/2024 8:39 PM CDT EXAM DESCRIPTION: XR CHEST 2 VIEWS REASON FOR STUDY: Positive COVID test 11/24/24. Pt states she is tired, coughing, and has a sore throat,symptoms started on 11/19. Pt states she isn't improving. chest pain x yesterday TECHNIQUE: Two views COMPARISON: None available FINDINGS: Heart size and vascularity appear normal. Aortic arch well-defined on the left. Lungs are hyperexpanded suggesting air trapping emphysema. No dense consolidation, effusion or pneumothorax. Bony hypertrophic changes obscures the apices. THIS IS AN ELECTRONICALLY VERIFIED FINAL REPORT 11/27/2024 8:36 PM - Electronically signed by Dlyan Whyte M.D. RB: RB Report ID: [id number] Reading Location: [id number] Procedure Note Dylan Whyte MD - 11/27/2024 EXAM DESCRIPTION: XR CHEST 2 VIEWS REASON FOR STUDY: Positive COVID test 11/24/24. Pt states she is tired, coughing, and has a sore throat,symptoms started on 11/19. Pt states she isn't improving. chest pain x yesterday TECHNIQUE: Two views COMPARISON: None available FINDINGS: Heart size and vascularity appear normal. Aortic arch well-defined on the left. Lungs are hyperexpanded suggesting air trapping emphysema. No dense consolidation, effusion or pneumothorax. Bony hypertrophic changes obscures the apices. THIS IS AN ELECTRONICALLY VERIFIED FINAL REPORT 11/27/2024 8:36 PM - Electronically signed by Dylan Whyte M.D. RB: RB Report ID: [id number] Reading Location: [id number] IMPRESSION: Emphysematous changes without acute findings. us Amber Galvin APRN, CNP IMG DIAGNOSTIC ORD ERABLES Final Result * (ABNORMAL) Urinalysis w/ Reflex (11/27/2024 7:35 PM CDT) SPECIFIC GRAVITY 1.015 1.003 - 1.030 11/27/2024 7:[address] [facility] URINE PH 6.0 5.0 - 9.0 11/27/2024 7:[address] [facility] WBC ESTERASE Negative Negative 11/27/2024 7:[address] [facility] NITRITE Negative Negative 11/27/2024 7:[address] [facility] PROTEIN, RANDOM URINE 15 mg/dL(A) Negative 11/27/2024 7:[address] [facility] URINE GLUCOSE, QUAL Negative Negative 11/27/2024 7:[address] [facility] URINE KETONES Negative Negative 11/27/2024 7:[address] [facility] UROBILINOGEN Normal Normal mg/dL 11/27/2024 7:[address] [facility] URINE BLOOD Negative Negative rd/ul 11/27/2024 7:[address] [facility] URINALYSIS COLOR Yellow 11/28/19 7:[address] [facility] URINALYSIS CLARITY Clear 11/27/2024 7:[address] [facility] Urine URINE SPECIMEN / Unknown Non-Phlebotomy Collection / Unknown 11/27/2024 7:35 PM CDT 11/27/2024 7:42 PM CDT us Amber Galvin APRN, CNP URINE ORDERABLES F inal Result [facility] [address] [place] [id number] from Last [address] [facility] [employer] Care Teams Medical Social Worker Relationship Specialty Start Date End Date Tiffany Corrales APRN, FLASK CLE[employer]ER [facility] [place] [address] PCP - General Family Medicine 11/27/24
--- OUTSIDE RECORDS SUMMARY | 2025-01-15 11:21 | XMS_ITS | Clinical Summary ---
Author Organization [facility] Address [address] [place] [address] Care Team Providers Care Acrylic Fabricator Name Role Phone Tiffany Corrales Primary Care Provider [phone] Allergies Active Allergy Reactions Criticality Noted Date Comments Fentanyl Nausea and Vomiting Low 08/28/2022 Tramadol Other (see comment) 02/15/2024 Anxiety Medications magnesium oxide (MAG-OX) 250 MG tablet Take 1 tablet (250 mg total) by mouth 2 (two) times daily. Active Multiple Vitamin (MULTIVITAMIN ADULT OR) Take 1 capsule by mouth daily. Active aspirin EC (ECOTRIN) 81 MG tablet Take 1 tablet (81 mg total) by mouth once. Active docusate sodium (COLACE) 100 MG capsule Take 1 capsule (100 mg total) by mouth 2 (two) times daily. Active ondansetron (ZOFRAN) 4 MG tabletIndication s:Nausea Take 1 tablet (4 mg total) by mouth every 8 (eight) hours as needed for Nausea. 20 tablet 1 4 Active ALPRAZolam (XANAX) 1 MG tablet TAKE 1 TABLET BY MOUTH IN THE AFTERNOON 4 Active estradiol (ESTRACE) 2 MG tabletIndication s:Postmenopausal Take 1 tablet by mouth once daily 90 tablet 5 Active omeprazole (PRILOSEC) 40 MG capsuleIndicatio ns:Gastroesophag eal reflux disease, unspecified whether esophagitis present Take 1 capsule (40 mg total) by mouth daily. 90 capsule 1 5 Active QUEtiapine (SEROQUEL) 100 MG tablet daily. 5 Active sertraline (ZOLOFT) 100 MG tablet Take 1 tablet (100 mg total) by mouth nightly at bedtime. 5 Active predniSONE (DELTASONE) 20 MG tabletIndication s:Neck pain Take 3 tablets daily for three days, then take 2 tablets daily for three days, then take 1 tablet daily for three days 18 tablet 5 Active tiZANidine (ZANAFLEX) 2 MG tabletIndication s:Neck pain Take 1 tablet (2 mg total) by mouth every 6 (six) hours as needed. 30 tablet 5 12/24/19 25 Active Problems Problem Noted Date Diagnosed Date Gallbladder disorder 02/12/2024 Multiple gastric ulcers 02/16/2023 Overview (02/16/2023): Added automatically from request for surgery [id number] Epigastric pain 12/29/2022 Overview (12/29/2022): Added automatically from request for surgery [id number] Nausea 12/29/2022 Overview (12/29/2022): Added automatically from request for surgery [id number] CAD S/P percutaneous coronary angioplasty 2022 Irritable bowel syndrome wit h both constipation and diarrhea 07/17/2022 Postmenopausal 07/17/2022 Orthostatic hypotension 11/11/2021 Presence of other cardiac implants and grafts Syncope and collapse 10/26/2018 Overview (07/17/2022): Added automatically from request for surgery [id number] Nicotine dependence, unspecified, uncomplicated 08/26/2018 Anxiety disorder 07/12/2015 Supraventricular tachycardia (HHS/HCC) 6 Resolved Problems Problem Noted Date Diagnosed Date Resolved Date Lower abdominal pain 12/29/2022 024 Overview (12/29/2022): Added automatically from request for surgery [id number] Constipation 12/29/2022 07/04/2024 Overview (12/29/2022): Added automatically from request for surgery [id number] Vestibular neuronitis 11/11/20212022 Obstructive sleep apnea syndrome 02/18/2019 12/19/2022 Shortness of breath 10/27/2018 12/20/19 Encounters Date Type Department Care Team Description 01/12/2025 Travel 12/26/[address] [address] Tiffany Corrales APNP Advice 12/15/[address] [address] Tiffany Corrales APNP Lab Order 12/13/2024 1:00 PM CDT Office Visit [address] [address] Tiffany Corrales APNP Headache (Pt c/o headaches since having COVID (11/24/24) She reports they are increasing in severity and frequency. She does state she has been under more stress recently.) 12/13/2024 Travel 11/28/[address] [address] Tiffany Corrales APNP Advice; Problem 11/24/2024 9:40 AM CDT Telemedicine [address] [address] Tiffany Corrales APNP Sore Throat (Pt c/o GI pain/issues onset 11/19. Unable to eat, a few episodes of diarrhea. Headache/fog, sore throat and fatigue started on Thursday. Her right ear started hurting last night, but is not today. She hasn't done any at-home testing. She has been taking ibuprofen but feels it only helps a little. She has been checking her temp and has not had any fever.) 11/24/2024 Results Follow-Up [address] [address] Tiffany Corrales APNP CORONAVIRUS (COVID-19) INFLUENZA A & B ANTIGEN IA PANEL, STREP A RAPID 11/24/2024 Telephone [facility] Family & Internal Medicine - [address] [address] Tiffany Corrales APNP Results 11/24/2024 Travel from Last 3 Months Immunizations Immunization Administration Dates Next Due Fluzone 6 Months+ Quad (0.5 mL Prefilled Syringe) 07/17/2022 Fluzone Intradermal Quad (IIV4) 03/25/2016 Influenza (Generic) 03/22/2024,04/29/2014 Influenza Adult (Generic) 05/14/2023,,05/05/2020,2018 MODERNA COVID-19 (12+) MRNA, LNP-S, PF, 100 MCG/ 0.5 ML DOSE 04/19/2021,10/09/2020,09/11/2020 Pneumococcal (Prevnar 20) 07/17/2023 Shingrix 03/22/2024 Tdap (Generic) 03/22/2024,01/20/2014 Family History Medical History Relation Comments No Known Problems Brother 1 Multiple Sclerosis Brother 2 Miscarriages / Stillbirths Daughter Had h er at 6months Depression Father Heart Disease Father Mental Health Father None Father Vision loss Father IgA nephropathy Mother Kidney Disease Mother None Mother Vision loss Mother Relation Status Comments Brother 1 Alive Brother 2 Alive Daughter Father Alive Maternal Grandfather Maternal Grandmother Mother Alive Paternal Grandfather Paternal Grandmother Social History Tobacco Use Types Packs/Day Years Used Date Smoking Tobacco: Former Cigarettes 0.3 15 2 000 - 2015 Passive Smoke Exposure: Past Smokeless Tobacco: Never Tobacco Cessation:Counseling Given: Yes Comments:Vapes daily. Passive Exposure Comments:vapes daily Alcohol Use Standard Drinks/Week Comments Never 0 (1 standard drink = 0.6 oz pur e alcohol) PHQ-2 Answer Date Recorded Patient Health Questionnaire-2 Score 0 09/24/2023 Comments No Sex and Gender Information Value Date Recorded Sex Assigned at Female 11/24/2024 9:26 AM CDT Legal Sex Female 11:21 AM HEALTH INSPECTOR FOOD Gender Identity Not on file Sexual Orientation Not on file Last Filed Vital Signs Vital Sign Reading Time Taken Comments Blood Pressure 98/66 12/13/2024 1:11 PM CDT Pulse 71 12/13/2024 1:11 PM CDT Temperature 36.7 C (98.1 F) 12/13/2024 1:11 PM CDT Respiratory Rate 16 12/13/2024 1:11 PM CDT Oxygen Saturation 98% 12/13/2024 1:11 PM CDT Inhaled Oxygen Concentration - - Weight 75.2 kg (165 lb 11.2 oz) 12/13/2024 1:11 PM CDT Height 165.1 cm (5' 5) 12/13/2024 1:11 PM CDT Body Mass Index 27.57 12/13/2024 1:11 PM CDT Plan of Treatment Upcoming Encounters Date Type Department Care Team (Late st Contact Info) Description 01/18/2025 11:20 AM CDT Office Visit [facility] Family & Internal Medicine - [address] [place] [address] [place] [address] Tiffany Corrales APNP [address] [place] [address] Health Maintenance Due Date Last Done Comments ASCVD Statin 1965 Hepatitis B Vaccines (1 of 3 - 19+ 3-dose series) 1985 COVID-19 Vaccine ( season) 2024 04/19/2021, 10/09/2020, 09/11/2020 Zoster Vaccines (2 of 2) 05/17/2024 03/22/2024 PHQ-2 (Physician Dorris) 07/06/2024 09/24/2023 ASCVD LDL 07/17/2024 07/17/2023, 07/17/2022 Annual Physical 09/23/2024 09/24/2023, 07/17/2023 Mammogram Screening 10/05/2026 10/05/2024, 10/05/2024, 10/05/2024, Additional history exists Colorectal Cancer Screening Colonoscopy (10 Years) 01/12/2033 01/12/2023, 01/12/2023, 08/15/2016 DTaP, Tdap and Td Vaccines (3 - Td or Tdap) 03/22/2034 03/22/2024, 01/20/2014 Hepatitis C Completed 07/17/2022 Pneumococcal Vaccine: 50+ Years Completed 07/17/2023, 04/06/2023 Meningococcal B Vaccine Aged Out No l onger eligible based on patient's age to complete this topic Meningococcal Vaccine Aged Out No walt palak eligible based on patient's age to complete this topic RSV Immunizations Under 20 Months Aged Out No longer eligible based on patient's age to complete this topic Medical Devices Implanted Type Area Medical Liaison Device Identifier Shelf Expiration Date Model / Serial / Lot Implantable Loop Recorder Implantable Loop Recorder Chest Wall Procedures Procedure Name Priority Date/Time Associated Diagnosis Comments CULTURE STREP A Routine 11/24/2024 11:21 AM CDT Other fatigue Sore throat STREP A RAPID Routine 11/24/2024 Other fatigue Sore throat CORONAVIRUS (COVID-19) INFLUENZA A & B ANTIGEN IA PANEL Routine 11/24/2024 Other fatigue Sore throat Loss of appetite Nasal congestion Body aches MAMMOGRAM GENERIC (SCAN ORDER) 10/05/2024 LIPID PANEL Routine 07/17/2023 10:31 AM HEALTH INSPECTOR FOOD General medical examination BMI 24.0-24.9, adult Mixed hyperlipidemia COLONOSCOPY Routine 01/12/2023 9:50 AM CDT HEPATITIS C ANTIBODY W/RFX TO HCV RNA Routine 07/17/2022 10:08 AM HEALTH INSPECTOR FOOD Need for hepatitis C screening test from Last 3 Months or Most Recently Relevant to Health Maintenance Results * CULTURE STREP A (MG/SJS/SMD Only) (11/24/2024 11:21 AM CDT) THROAT CULTURE STREP A ONLY Negative for Group A Streptococci Negative for Group A Streptococci 11/25/2024 5:31 PM CDT -[facility] STRUCTURE OF ANTERIOR PORTION OF NECK / Unknown 11/24/2024 11:21 AM CDT Tiffany MCKINLEY MICROBIOLOGY GENERAL NGA BUSTILLOMEERA Final Result Performing Organization Address [facility] de Phone Number [facility] [address] [address] [facility] [place] [address], [place] [phone] * (ABNORMAL) CORONAVIRUS (COVID-19) INFLUENZA A & B ANTIGEN IA PANEL (11/24/2024) CORONAVIRUS ANTIGEN IA POSITIVE(A) NEGATIVE [facility] INFLUENZA A NEGATIVE NEGATIVE [facility] INFLUENZA B NEGATIVE NEGATIVE [facility] Internal Control: VALID VALID [facility] NASAL STRUCTURE / Unknown 11/24/2024 Tiffany MCKINLEY MICROBIOLOGY [facility] REXDouglas GERALD Final Result Performing Organization Address [facility] [place] [address], [place] * STREP A RAPID (11/24/2024) Pathologist [facility] RAPID STREP TEST NEGATIVE NEGATIVE [facility] Internal Control: VALID VALID [facility] STRUCTURE OF ANTERIOR PORTION OF NECK / Unknown 11/24/2024 Tiffany MCKINLEY MICROBIOLOGY [facility] REXDouglas BUSTILLOMEERA Final Result Performing Organization Address [facility] de Phone Number [address] [address], [place] * MAMMOGRAM GENERIC (SCAN ORDER) (10/05/2024) Anatomical Region Laterality Modality Other 10/05/2024 [facility] Scanned SCANNING Final Resu lt * (ABNORMAL) LIPID PANEL (07/17/2023 10:31 AM HEALTH INSPECTOR FOOD) CHOLESTEROL 239(H) <200 MG/DL 07/17/2023 4:23 PM HEALTH INSPECTOR FOOD [facility] TRIGLYCERIDES 64 <150 MG/DL 07/17/2023 4:23 PM [facility] HDL 84 >40 MG/DL 07/17/2023 4:23 PM HEALTH INSPECTOR FOOD [facility] LDL-C 142(H) <100 MG/DL 07/17/2023 4:23 PM HEALTH INSPECTOR FOOD [facility] VLDL CALCULATION 13 5 - 28 MG/DL 07/17/2023 4:23 PM HEALTH INSPECTOR FOOD [facility] CHOL/HDL RATIO 2.8 0.0 - 4.0 07/17/2023 4:23 PM HEALTH INSPECTOR FOOD [facility] LDL/HDL 1.7 0.41 - 2.13 07/17/2023 4:23 PM HEALTH INSPECTOR FOOD [facility] NON HDL CHOLESTEROL 155(H) <140 MG/DL 07/17/2023 4:23 PM [facility] 07/17/2023 10:3 1 AM HEALTH INSPECTOR FOOD Tiffany MCKINLEY LABORATORY Final Resul t [facility] [address] [place] [address], * HEPATITIS C ANTIBODY W/RFX TO HCV RNA ([facility] ONLY) (07/17/2022 10:08 AM HEALTH INSPECTOR FOOD) HEPATITIS C AB NON-REACT ZE NON-REACT ZE [facility] SIGNAL TO CUTOFF 0.09 <1.00 [facility] Comment: HCV antibody was non-reactive. There is no laboratory evidence of HCV infection. In most cases, no further action is required. However, if recent HCV exposure is suspected, a test for HCV RNA (test code 95847) is suggested. For additional information please refer to http://education.Fidelis/faq/PGC54a1 (This link is being provided for informational/ educational purposes only.) 07/17/2022 10:0 8 AM HEALTH INSPECTOR FOOD 07/18/2022 3:35 PM HEALTH INSPECTOR FOOD Narrative Resulting Agency Comment Performing Organization Information: Site ID: [id number] Name: Iman Harrington Address: [address] [address] Director: Carter Quintanilla D.O., MPH us Tiffany MCKINLEY LABORATORY Final Resul t [facility] [address] [place] [address], * COLONOSCOPY GENERIC (08/15/2016) 08/15/2016 us [facility] Scanned SCANNING Final Resu lt from Last 3 Months or Most Recently Relevant to Health Maintenance [place] [address] Care Teams Acrylic Fabricator Relationship Specialty Start Date End Date Tiffany Corrales APNP [address] [place] [phone] PCP - General NURSE PRACTITIONER 07/17/22
--- OUTSIDE RECORDS SUMMARY | 2025-01-15 11:22 | XMS_ITS | Clinical Summary ---
Author Organization [facility] Address [address] Lino: Epic Prelude ADT MICHAEL LOJA [address] Care Team Providers Care Ortho Assistant Name Role Phone Unavailable Primary Care Provider Unavailabl e Encounters Date Type Department Care Team Description 12/20/2024 External Device Data STL ABSTRACTION Provider, Abstract 11/24/2024 External Device Data ST[facility] ABSTRACTION Provider, Abstract 11/22/2024 External Device Data ST[facility] ABSTRACTION Provider, Abstract 11/08/2024 External Device Data STL ABSTRACTION Provider, Abstract from Last 3 Months Social History Tobacco Use Types Packs/Day Years Used Date Smoking Tobacco: Never Assessed Comments No Sex and Gender Information Value Date Recorded Sex Assigned at Not on file Legal Sex Female 11:49 PM BUS 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 Gender Identity Not on file Sexual Orientation Not on file Plan of Treatment Health Maintenance Due Date Last Done Comments Pre-Diabetes and Diabetes Screening 1965 HEPATITIS B VACCINES (1 of 3 - 19+ 3-dose series) 1985 FIT-DNA Q 3 years 2011 FIT/FOBT Q 1 year 2011 Flex Sig/CT Colonography Q 5 years 2011 ZOSTER VACCINE (1 of 2) 2016 DTAP/TDAP/TD VACCINES (2 - T d or Tdap) 01/21/2024 01/20/2014 COVID-19 Vaccine ( season) 2024 04/19/2021, 10/09/2020, 09/11/2020 INFLUENZA VACCINE (#1) 2025 , 05/02/2019, 03/25/2016 BREAST CANCER SCREENING 10/05/2025 10/05/2024, 10/04 COLORECTAL SCREENING 01/12/2033 01/12/2023 Colorectal Cancer Screening 01/12/2033 Procedures Procedure Name Priority Date/Time Associated Diagnosis Comments MAMMO 3D MONICA SCREEN BILAT W OR WO CAD Routine 10/05/2024 9:28 AM CDT Encounter for screening mammogram for breast cancer from Last 3 Months or Most Recently Relevant to Health Maintenance Results * MAMMO 3D MONICA SCREEN BILAT W OR WO CAD (10/05/2024 9:28 AM CDT) Anatomical Region Laterality Modality Breast Bilateral Mammography 10/05/2024 9:28 AM CDT Impressions 10/05/2024 9:37 AM CDT IMPRESSION: BI-RADS Category 1, negative mammogram. Recommend yearly bilateral screening mammogram. Narrative 10/05/2024 9:37 AM CDT EXAM: MAMMO 3D MONICA SCREEN BILAT W OR WO CAD DATE: 10/05/2024 CLINICAL HISTORY: Screening in an asymptomatic patient with no personal or family history of breast cancer TECHNIQUE: Bilateral full field digital mammography and digital tomosynthesis were performed in the CC and MLO projections. Comparison was made to prior bilateral mammograms performed October 05, 2023, October 29, 2021, August 27, 2020, August 26, 2019, August 14, 2018 and July 08, 2017. CAD was utilized. FINDINGS: The breast parenchyma is fatty. The parenchymal pattern is unchanged compared to the prior exams. A loop recorder is again identified in the deep inner left breast. There is no new suspicious asymmetry or mass, area of architectural distortion or suspicious microcalcification. Tiffany Corrales NP MAMMO ORDERABLES Final R esult from Last 3 Months or Most Recently Relevant to Health Maintenance Insurance INDIVIDUAL EXCHANGE [id number]
--- OUTSIDE RECORDS SUMMARY | 2025-01-15 11:22 | XMS_ITS | Clinical Summary ---
Author Organization [facility] Address [address] [place] [address] Care Team Providers Care Refractive Surgeon Name Role Phone John Viramontes MD Unavailable [phone] Tiffany Corrales Primary Care Provider + Allergies Active Allergy Reactions Criticality Noted Date Comments Fentanyl Nausea & Vomiting Low 08/28/2022 Medications clonazePAM (KlonoPIN) 1 mg tablet Take 1 tablet (1 mg total) by mouth 2 (two) times a day Active magnesium oxide 500 mg capsuleIndicati ons:hypomagnese aaron Take 500 mg by mouth daily Active aspirin 81 mg enteric coated tablet Take 1 tablet (81 mg total) by mouth nightly 0 Active estradioL (ESTRACE) 2 mg tablet Take 1 tablet (2 mg total) by mouth daily 3 Active multivitamin capsule Take 1 capsule by mouth daily Active sertraline (ZOLOFT) 50 mg tablet Take 1 tablet (50 mg total) by mouth daily 4 Active sertraline (ZOLOFT) 25 mg tablet Take 1 tablet (25 mg total) by mouth daily Active ALPRAZolam (XANAX) 2 mg tablet Take 1 tablet (2 mg total) by mouth daily after lunch TAKE 1 TABLET BY MOUTH ONCE DAILY IN THE AFTERNOON 4 Active ondansetron (ZOFRAN) 4 mg tablet Take 1 tablet (4 mg total) by mouth every 8 (eight) hours as needed 4 Active Active Problems Problem Noted Date Diagnosed Date Bradycardia 02/11/2024 CAD S/P percutaneous coronary angioplasty 2022 Abnormal nuclear stress test 08/25/2022 Overview (08/25/2022): Added automatically from request for surgery [id number] Syncope and collapse 01/17/2019 Overview (01/18/2019): Added automatically from request for surgery [id number] Surgical History Surgery Date Site/Laterality Comments HYSTERECTOMY SECTION TONSILLECTOMY OOPHERECTOMY OTHER SURGICAL HISTORY Loop recorder WRIST SURGERY Right Medical History Medical History Date Comments Arrhythmia Chronic bronchitis (HCC) Anxiety Depression Abnormal nuclear stress test Syncope and collapse PONV (postoperative nausea and vomiting) Irritable bowel syndrome Panic attacks Agoraphobia Anxiety Family History Medical History Relation Name Comments Heart disease Father Hypertension Mother Relation Name Status Comments Father Alive Mother Alive Social History Tobacco Use Types Packs/Day Years Used Date Smoking Tobacco: Every Day Vaping Smokeless Tobacco: Never Tobacco Cessation:Ready to Q uit: Yes; Counseling Given: Yes Comments:vape Alcohol Use Standard Drinks/Week Comments Not Currently 0 (1 standard drink = 0.6 oz pur e alcohol) AUDIT-C Answer Date Recorded Q1: How often do you have a drink containing alcohol? Never 02/11/2024 Q2: How many drinks containi ng alcohol do you have on a typical day when you are drinking? Patient does not drink Q3: How often do you have si x or more drinks on one occasion? Never 02/11/2024 Personal Safety Answer Date Recorded Have you ever been in or are you currently in a harmful physical or emotional relationship or is someone making you feel afraid or unsafe? Denies 02/11/2024 Comments No Sex and Gender Information Value Date Recorded Sex Assigned at Not on file Legal Sex Female 2:44 AM CDT Gender Identity Not on file Sexual Orientation Not on file Obstetrics History Last Filed Vital Signs Vital Sign Reading Time Taken Comments Blood Pressure 95/58 02/12/2024 11:14 AM CDT Pulse 54 02/12/2024 11:14 AM CDT Temperature 36.3 C (97.4 F) 02/12/2024 11:14 AM CDT Respiratory Rate 20 02/12/2024 11:14 AM CDT Oxygen Saturation 100% 02/12/2024 11:14 AM CDT Inhaled Oxygen Concentration - - Weight 67.3 kg (148 lb 5.9 oz) 02/11/2024 7:45 P M CDT Height 165.1 cm (5' 5) 02/11/2024 7:45 PM CDT Body Mass Index 24.69 02/11/2024 7:45 PM CDT Plan of Treatment Health Maintenance Due Date Last Done Comments Colon Cancer Screening-Colonoscopy 1966 Depression Screening 1966 Hepatitis C Screening 1966 Hepatitis B Screening 1984 Regular Well Visit/Exam 18-64 1984 Pneumococcal vaccine <65 (1 of 2 - PCV) 1985 Zoster Vaccine (1 of 2) 2016 DTaP/Tdap/Td Vaccine (2 - Td or Tdap) 01/21/2024 01/20/2014 Covid-19 Vaccine (4 - 2023-2 5 season) 2024 04/19/2021, 10/09/2020, 09/11/2020 Breast Cancer Screening-Mammogram 10/04/2024 024, 10/05/2023 Influenza Vaccine (Season Ended) 2025 07/17/2022, 04/19/2021, 05/05/2020, Additional history exists Medical Devices Implanted Type Area Election Supervisor Device Identifier Shelf Expiration Date Model / Serial / Lot [employer] [id number] Biomonitor Implantable Device Cardiac Sterile Latex Free - [id number] Implanted:Qty: 1 on 01/19/2019 by John Viramontes MD at [facility] Biotronik [facility] [id number] / / Insurance [facility] CMR CIGNA [facility] Advance Directives For more information, please contact: [phone] * Full Code (Latest Code Status on File) Date Activated Date Inactivated Comments 02/11/2024 8:03 PM 02/12/2024 4:06 PM * Full Code Date Activated Date Inactivated Comments 01/18/2019 4:22 AM 01/19/2019 10:29 PM Care Teams Refractive Surgeon Relationship Specialty Start Date End Date Tiffany Corrales PA [address] [place] [phone] PCP - General Nurse Practitioner 02/11/24 John Viramontes MD Consulting Physician Cardiology 11/26/18
--- OUTSIDE RECORDS SUMMARY | 2025-01-15 11:22 | XMS_ITS | Encounter Summary ---
Author Organization [facility] Address [facility] [place] [address] Care Team Providers Care Diamond Setter Name Role Phone Tiffany Corrales Primary Care Provider [phone] Encounter Details Date Type Department Care Team (Late Contact Info) Description 01/08/2024 Hem[facility] Patient Accounts [address] [place], [place] [id number] [facility] Action Required Social History Tobacco Use Types Packs/Day Years Used Date Smoking Tobacco: Former Cigarettes 0.3 15 2 000 - 2015 Passive Smoke Exposure: Past Smokeless Tobacco: Never Comments:Vapes daily. Passive Exposure Comments:vapes daily Alcohol Use Standard Drinks/Week Comments Never 0 (1 standard drink = 0.6 oz pur e alcohol) PHQ-2 Answer Date Recorded Patient Health Questionnaire-2 Score 0 09/24/2023 Comments No Sex and Gender Information Value Date Recorded Sex Assigned at Female 11/24/2024 9:26 AM CDT Legal Sex Female 11:21 AM CHILD NURSE Gender Identity Not on file Sexual Orientation Not on file documented as of this encounter Plan of Treatment Upcoming Encounters Date Type Department Care Team (Late Contact Info) Description 01/18/2025 11:20 AM CDT Office Visit [facility] Family & Internal Medicine [address] [address] Tiffany Corrales APNP [facility] [place], [place] [id number] documented as of this encounter Visit Diagnoses Not on filedocumented in this encounter Additional Health Concerns Infection Onset Date Last Indicated Resolved Time COVID-19 Rule Out 04/26/2024 04/26/2024 04/26/2024 12:56 PM CDT Respiratory Rule Out 11/24/2024 11/24/2024 025 11:18 AM CDT COVID-19 Confirmed 11/24/2024 11/24/2024 7:55 PM CDT Assessment Noted Time PHQ-9 Depression Total Score: 0 09/24/19 24 8:51 AM CDT documented as of this encounter Care Teams Diamond Setter Relationship Specialty Start Date End Date Tiffany Corrales APNP [address] [place] [id number] PCP - General NURSE PRACTITIONER 07/17/22 documented as of this encounter
--- OUTSIDE RECORDS SUMMARY | 2025-01-15 11:22 | XMS_ITS | Referral Summary ---
Author Organization [facility] Address [address] [place] [id number] Care Team Providers Care Keysmith Name Role Phone John Viramontes MD Unavailable [phone] Tiffany Corrales Primary Care Provider + Allergies [...] (08/25/2022): Added automatically from request for surgery [id number] Syncope and collapse 01/17/2019 Overview (01/18/2019): Added automatically from request for surgery [id number] Social History Tobacco Use Types Packs/Day Years [...] 02/11/2024 7:45 PM CDT Plan of Treatment Not on file Medical Devices Implanted Type Area Die Maker Bench Stamping Device Identifier Shelf Expiration Date Model / Serial / Lot Conjectur [id number] Biomonitor Implantable Device Cardiac Sterile Latex Free - [id number] Implanted:Qty: 1 on 01/19/2019 by John Viramontes MD at [facility] Conjectur [id number] / / Insurance [facility] Advance Directives For more information, please contact: [phone] * Full Code (Latest Code Status on File) Date Activated Date Inactivated Comments 02/11/2024 8:03 PM 02/12/2024 4:06 PM * Full Code Date Activated Date Inactivated Comments 01/18/2019 4:22 AM 01/19/2019 10:29 PM Care Teams Keysmith Relationship Specialty Start Date End Date Tiffany Corrales PA [facility] [place] [address] PCP - General Nurse Practitioner 02/11/24 John Viramontes MD Consulting Physician Cardiology 11/26/18
--- OUTSIDE RECORDS SUMMARY | 2025-01-15 11:22 | XMS_ITS | Data Portability ---
Author Organization [facility], [facility] Address [address] [place] [address] Assessment No assessment recorded. Plan of Treatment Reminders Order Date Submit Date Provider Last Modified By Organization Details Last Modified Time Details Appointments None record ed. Lab None record ed. Referral None record ed. Procedures None record ed. Surgeries None record ed. Imaging None record ed. Medication Orders None record ed. Patient TargetsNo targets recorded. Patient InstructionsNo instructions recorded. Reason for Referral None Reported. Results Created Date Observation Date Name Description Value Unit Range Abnormal Flag Note LastModifiedBy Organization Detail LastModifiedTime 12/31/19 23 12/11/2022 US, pelvi s, trans abdom inal + trans vagin al No observ ation record ed. jdownen [address] [place], [place], [address], 12/31/2022 09:16:47 Result Notes None recorded. Procedures Surgical History Date Name Laterality Status Provider Name and Address Organization Details Recorded Time 024 Most Recent Mammogram completed Luz Maria Piepreetewicz [facility] 12/17/2022 10:32:08 013 Date of Last Pap Smear completed Luz Maria [employer] [facility] 12/17/2022 10:32:07 Colonoscopy completed Luz Maria [employer] [facility] 12/17/2022 10:32:19 LEEP completed Luz Maria [employer] [facility] 12/17/2022 10:32:19 Laparoscopic Hysterectomy completed Luz Maria [employer] [facility] 12/17/2022 10:32:19 Removal of Ovaries completed [facility] 12/17/2022 10:32:19 C Section completed [facility] 12/17/2022 10:32:19 Imaging Results None recorded. Procedure Notes None recorded. Medical Equipment None Reported. Allergies No known drug allergies Medications Name Sig Start Date Stop Date Status Note LastModified by Organization Details LastModified Time amoxicillin 500 mg capsule TAKE 1 CAPSULE BY MOUTH THREE TIMES DAILY 12/17 completed Not Available Not Available Not Available Miralax 17 gram/dose oral powder Take by oral route as directed. active Not Available Not Available No t Available prednisone 10 mg tablet 12/17 completed Not Available Not Available Not Available paroxetine 10 mg tablet TAKE 1 & 1/2 (ONE & ONE-HALF) TABLETS BY MOUTH ONCE DAILY active Not Available Not Available No t Available alprazolam 1 mg tablet TAKE 1 AND 1/2 TABLETS BY MOUTH EVERY DAY active Not Available Not Available No t Available clonazepam 1 mg tablet TAKE 1 TABLET BY MOUTH TWICE DAILY active Not Available Not Available No t Available clopidogrel 75 mg tablet TAKE 1 TABLET BY MOUTH EVERY DAY 12/17 completed Not Available Not Available Not Available amoxicillin 875 mg tablet 12/17 completed Not Available Not Available Not Available paroxetine 20 mg tablet TAKE 1 TABLET BY MOUTH TWICE DAILY 12/17 completed Not Available Not Available Not Available omeprazole 20 mg capsule,del ayed release TAKE 1 CAPSULE BY MOUTH DAILY active Not Available Not Available No t Available estradiol 2 mg tablet TAKE 1 TABLET BY MOUTH EVERY DAY active Not Available Not Available No t Available aspirin 81 mg tablet Take by oral route. active Not Available Not Available No t Available ondansetron 4 mg disintegrat ing tablet DISSOLVE 1 TABLET IN THE MOUTH EVERY 6 HOURS NEEDED FOR NAUSEA AND VOMITING active Not Available Not Available No t Available dicyclomine 10 mg capsule TAKE 1 CAPSULE BY MOUTH THREE TIMES DAILY 12/17 completed Not Available Not Available Not Available midodrine 10 mg tablet TAKE 1 TABLET BY MOUTH THREE TIMES DAILY DIRECTED 12/17 completed Not Available Not Available Not Available nitrofurant oin monohydrate /macrocryst als 100 mg capsule TAKE 1 CAPSULE BY MOUTH TWICE DAILY FOR 3 DAYS 12/17 completed Not Available Not Available Not Available lactulose 10 gram/15 mL oral solution TAKE 30 ML BY MOUTH TWICE DAILY 12/17 completed Not Available Not Available Not Available Viibryd 20 mg tablet TAKE 1 TABLET BY MOUTH ONCE DAILY 12/17 completed Not Available Not Available Not Available Trulance 3 mg tablet TAKE 1 TABLET BY MOUTH ONCE DAILY 12/17 completed Not Available Not Available Not Available BinaxNOW COVID-19 Ag Self Test kit TEST DIRECTED TODAY 12/17 completed Not Available Not Available Not Available Paxlovid 300 mg (150 mg x 2)-100 mg tablets in a dose pack TK 2 NIRMATREL VIR TS AND 1 RITONAVIR T TOGETHER PO BID FOR 5 DAYS BID FOR 5 DAYS 12/17 completed Not Available Not Available Not Available Vitals Date Recorded Body weight Body mass index (BMI) Body height Systolic And Diastolic Provider Name and Address Organization Details Last Updated DateTime 12/17/2022 98534.26 g 24 kg/m2 167.64 cm 108/62 mm[Hg] Luz Maria Holbrook Infer 12/17/2022 10:43:05 Social History Question Answer Notes LastModified by Organizat ion Details LastModified Time Tobacco Smoking Status Smoker, Current Status Unknown Luz Maria benjamin, [facility] 12/17/2022 10:32:13 Are You Blind Or Do You Have Difficulty Seeing? No ivy Information not available 12/17/2022 Are You Deaf Or Do You Have Serious Difficulty Hearing? No ivy Information not available 12/17/2022 What Type Of Diet Are You Following? REGULAR ivy Information not available 12/17/2022 How Many Children Do You Have? 2 ivy Information not available 12/17/2022 What Is Your Relationship Status? ivy Information not available 12/17/2022 Are You Sexually Active? Yes ivy Information not available 12/17/2022 Sex: Unknown Functional Status Question Answer Note LastModified by Organizat ion Details LastModified Time Do you use any illicit or recreational drugs? No ivy Information not available 12/17/2022 What is your level of alcohol consumption? None apiamnaukisanto Information not available 12/17/2022 Do you or have you ever used e-cigarettes or vape? Current user of electronic cigarettes Information not available 12/17/2022 What is your exercise level? Moderate Information not available 12/17/2022 Mental Status None recorded. Family History Relationship Description Onset Age of this Age Resolved Age Notes LastModified by Organization Details LastModified Time Father Irritable bowel syndrome [email or web address] z Not available 12/17/2022 10:32:04 Medical History Condition Response Panic Attacks Y Anxiety Disorder Y Gynecological History Statement/Question Response Flow Heavy Frequency of Cycle (Q days) 31 Date of LMP 07/07/2013 Date of Last Pap Smear 10/16/2012 Duration of Flow (days) 7 days Most Recent Mammogram 11/26/2023 Current Control Method Hysterectom y Age at Menarche 13 Obstetrics History GPAL:G 0 P 0 0 0 0 Past Encounters Encounter ID Performer Location Encounter Start Date Encounter Closed Date Diagnosis/Indication Diagnosis SNOMED-CT Code Diagnosis ICD10 Code Diagnosis Note [id number] Bon Ambriz MD [facility] [address] [place] [address] 12/17/2022 10:28:56 12/17/2022 16:19:23 Constipation 51946515 K59.00 Irritable bowel syndrome 30683044 K58.9 Abdominal pain 99772454 R10.9 Her symptoms ( constipati on, bloating and difficulty passing gas) need to be E&M by GI/General surgery, not 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 noted is that she had Hx of 3 laparoscop ic surgery first for hysterecto my and was told scaring is bad, and other 2 for removal of ovaries.Sp ent 40 min in care >50% face to face counseling Health Concerns Section Related Observation LastModified by Organization Detai ls LastModified Time None Recorded Concern Status LastModified by Organization Details LastModified Time None Recorded Advance Directives Directive None Recorded Payers Insurance Date Sequence Insurance Name Policy Number Policy Hernandez Covered Member ID Hernandez Member ID Guarantor Name 12/17/2022 1 Diabetica Ute Madden [id number] Ute Madden Notes Date Note Type Note Provider Name and Address Organization Details Recorded Time 12/17/2022 text/html Patient is here to discuss pelvic/abdominal bloating and pain. Having problems with constipation as well and has been seen by GI. She is currently taking Mirralax for constipation. Patient recently felt pressure in her rectal area and the pelvic pain. Radiates from left side to Rt. Patient had a transvaginal ultrasound which was normal but the PATTERN MARKING SUPERVISOR she saw believes that she may have some scar tissue that is causing some issues. Patient unsure where to go from here. She is unable to have a B.M. at this point with out straining and she is still having severe pain. Her Housekeeping Staff is Sera garcia, Mainly bloating and constipation and saw GI thought IBS, the pain is worse in the last few weeks, and she could not use the bathroom and occasionally she will have sharp vaginal pain, and this week noticed pelvic pain, Had laparoscopic hysterectomy 10 yrs ago and she was told very severe adhesion and had bladder injury during her hysterectomy and later time had removed ovaries on two different surgery most recently 3 yrs ago. also She reports Hx of 3 C/S, Had pelvic US and and CT scan and palin X ray. Bon Ambriz MD [address] [facility], [place], [address], [facility] 12/17/2022 14:39:18 OBGyn Episode No OBEpisode recorded.
--- OUTSIDE RECORDS SUMMARY | 2025-01-15 11:22 | XMS_ITS | Encounter Summary ---
Author Organization [facility] Address [address] [place] [address] Phone Care Team Providers Care Boom Supervisor Name Role Phone Braxton Chau MD Primary Care Provider John Viramontes MD Unavailable [phone] Tiffany Corrales Primary Care Provider + Encounter Details Date Type Department Care Team (Late st Contact Info) Description 03/02/2021 Orders Only [facility] [address] [place] [address] Scanning, Provider Social History Tobacco Use Types Packs/Day Years Used Date Smoking Tobacco: Every Day Smokeless Tobacco: Never Comments:vape Alcohol Use Standard Drinks/Week Comments Not Currently 0 (1 standard drink = 0.6 oz pur e alcohol) Comments No Sex and Gender Information Value Date Recorded Sex Assigned at Not on file Legal Sex Female 2:44 AM CDT Gender Identity Not on file Sexual Orientation Not on file documented as of this encounter Plan of Treatment Not on file documented as of this encounter Procedures Procedure Name Priority Date/Time Associated Diagnosis Comments SCAN - RADIOLOGY/IMAGING 03/02/2021 documented in this encounter Results * SCAN - RADIOLOGY/IMAGING (03/02/2021) Anatomical Region Laterality Modality Other us Provider Scanning Final Result documented in this encounter Visit Diagnoses Not on filedocumented in this encounter Additional Health Concerns Infection Onset Date Last Indicated Resolved Time COVID: Suspected 06/28/2021 06/28/202106/28/2021 9:36 AM 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
--- OUTSIDE RECORDS SUMMARY | 2025-01-15 11:22 | XMS_ITS | Data Portability ---
Author Organization [facility] Address [address] [place] [address] Assessment No assessment recorded. Plan of Treatment Reminders Order Date Submit Date Provider Last Modified By Organization Details Last Modified Time Details Appointments None recorded. Lab None recorded. Referral urogynecolo gist referral - Auth # [id number] - Rory Dillard MD 2022 023 MARGI Dillard MD, [address] [facility] , [place], [address], 3 10:55:25 Procedures None recorded. Surgeries None recorded. Imaging US, pelvis, transabdomi nal + transvagina l 2022 023 [facility] ([facility]), [address] [place], [address], 3 13:45:28 MAMMO, screening, digital, bilateral 2022 023 [facility], [address] [address], [place], [address], 3 09:19:55 Medication Orders estradiol 2 mg tablet 2022 023 [id number], [address] , [place], [place], [id number], 3 12:39:11 Patient TargetsNo targets recorded. Patient Instructions Encounter Date Encounter Id Patient Instructions Last Modified By Organization Details Last Modified Time 09/17/2022 [id number] mammogram: about this test [email or web address] Not available 09/17/2022 14:17:49 12/08/2022 [id number] chronic pelvic pain: care instructions [email or web address] Not available 12/09/2022 09:31:09 12/25/2022 [id number] chronic pelvic pain: care instructions [email or web address] Not available 12/25/2022 12:31:00 Reason for Referral Urogynecologist Referral for Chronic pelvic pain of female Auth # [id number] - Rory Dillard MD Referring Physician: Petty Crawley, Special Events Manager, Encounter Date: 12/08/2022 Results Created Date Observation Date Name Description Value Unit Range Abnormal Flag Note LastModifiedBy Organization Detail LastModifiedTime 11/01/19 23 10/31/2022 MAMMO , scree reji, digit al, bilat eral No observ ation record ed. cd[facility] [address] [address], [place], [address], 11/03/2022 10:06:12 12/12/19 23 12/11/2022 US, pelvi s, trans abdom inal + trans vagin al No observ ation [facility] [address] [place], [address], 12/23/2022 11:12:02 Result Notes None recorded. Problems No Known Problems Procedures Surgical History Date Name Laterality Status Provider Name and Address Organization Details Recorded Time 11/01/19 23 Most Recent Mammogram completed Amber Britt RN [place] - [facility] 11/03/2022 10:06:21 07/06/19 13 Total hysterectomy completed Chely Goel APN, KAMRAN-C Attn: Accounting,[address] [facility], [place], [address], [place] 04/29/2023 14:23:58 delivery completed MARIO Fair [place] - [place] 09/17/2022 08:32:31 oophorectomy completed MARIO Fair [place] 09/17/2022 08:32:58 Imaging Results None recorded. Procedure Notes None recorded. Medical Equipment None Reported. Allergies No known drug allergies Medications Name Sig Start Date Stop Date Status Note LastModified by Organization Details LastModified Time amoxicillin 500 mg capsule TAKE 1 CAPSULE BY MOUTH THREE TIMES DAILY 08/05 completed Not Available Not Available Not Available prednisone 10 mg tablet 09/17 completed Not Available Not Available Not Available paroxetine 10 mg tablet TAKE 1 & 1/2 (ONE & ONE-HALF) TABLETS BY MOUTH ONCE DAILY active Not Available Not Available No t Available citalopram 40 mg tablet active Not Available Not Available Not Available oxybutynin chloride ER 10 mg tablet,exte nded release 24 hr TAKE 1 TABLET BY MOUTH ONCE DAILY active Not Available Not Available No t Available ibuprofen 800 mg tablet active Not Available Not Available Not Available alprazolam 1 mg tablet TAKE 1 TABLET BY MOUTH ONCE DAILY IN THE AFTERNOON active Not Available Not Available No t Available metoprolol succinate ER 50 mg tablet,exte nded release 24 hr active Not Available Not Available Not Available sucralfate 1 gram tablet active Not Available Not Available Not Available ondansetron HCl 4 mg tablet TAKE 1 TABLET BY MOUTH EVERY 8 HOURS NEEDED FOR NAUSEA active Not Available Not Available No t Available sertraline 100 mg tablet TAKE 1 TABLET BY MOUTH ONCE DAILY AT BEDTIME active Not Available Not Available No t Available prednisone 5 mg tablet TAKE 2 TABLETS BY MOUTH ONCE DAILY IN THE MORNING ON DAYS 1-7, THEN TAKE 1 TABLET DAILY ON DAYS 8-14, TAKE IN THE MORNING 08/05 completed Not Available Not Available Not Available clonazepam 1 mg tablet TAKE 1 TABLET BY MOUTH TWICE DAILY active Not Available Not Available No t Available penicillin V potassium 500 mg tablet TAKE 1 TABLET BY MOUTH EVERY 12 HOURS FOR 10 DAYS 08/05 completed Not Available Not Available Not Available meclizine 12.5 mg tablet TAKE 1 TABLET BY MOUTH 4 TIMES DAILY active Not Available Not Available No t Available clopidogrel 75 mg tablet TAKE 1 TABLET BY MOUTH EVERY DAY active Not Available Not Available No t Available omeprazole 40 mg capsule,del ayed release TAKE 1 CAPSULE BY MOUTH ONCE DAILY active Not Available Not Available No t Available lamotrigine 25 mg tablet active Not Available Not Available Not Available alprazolam 0.5 mg tablet TAKE 1 TABLET BY MOUTH TWICE DAILY active Not Available Not Available No t Available amoxicillin 875 mg tablet TAKE 1 TABLET BY MOUTH TWICE DAILY FOR 10 DAYS active Not Available Not Available No t Available citalopram 20 mg tablet active Not Available Not Available Not Available diltiazem ER 120 mg capsule,24 hr,extended release active Not Available Not Available Not Available cephalexin 500 mg capsule active Not Available Not Available Not Available paroxetine 20 mg tablet TAKE 1 TABLET BY MOUTH TWICE DAILY active Not Available Not Available No t Available warfarin 5 mg tablet active Not Available Not Available No t Available flecainide 100 mg tablet TAKE 1 TABLET BY MOUTH TWICE DAILY active Not Available Not Available No t Available oxybutynin chloride ER 5 mg tablet,exte nded release 24 hr TAKE 1 TABLET BY MOUTH ONCE DAILY active Not Available Not Available No t Available sertraline 25 mg tablet TAKE 1 TABLET BY MOUTH ONCE DAILY active Not Available Not Available No t Available omeprazole 20 mg capsule,del ayed release TAKE 1 CAPSULE BY MOUTH DAILY active Not Available Not Available No t Available estradiol 2 mg tablet TAKE 1 TABLET BY MOUTH ONCE DAILY active Not Available Not Available No t Available midodrine 2.5 mg tablet TAKE 2 TABLETS BY MOUTH THREE TIMES DAILY active Not Available Not Available No t Available alprazolam 2 mg tablet TAKE 1 TABLET BY MOUTH ONCE DAILY IN THE AFTERNOON active Not Available Not Available No t Available lorazepam 1 mg tablet active Not Available Not Available No t Available methylpredn isolone 4 mg tablets in a dose pack 08/05 completed Not Available Not Available Not Available hydroxyzine HCl 10 mg tablet TAKE 1 TABLET BY MOUTH THREE TIMES DAILY FOR 30 DAYS active Not Available Not Available No t Available ondansetron 4 mg disintegrat ing tablet DISSOLVE 1 TABLET IN THE MOUTH EVERY 6 HOURS NEEDED FOR NAUSEA AND VOMITING active Not Available Not Available No t Available cefdinir 300 mg capsule TAKE 1 CAPSULE BY MOUTH TWICE DAILY active Not Available Not Available No t Available fluticasone propionate 50 mcg/actuati on nasal spray,suspe nsion active Not Available Not Available Not Available sertraline 50 mg tablet TAKE 1 TABLET BY MOUTH ONCE DAILY AT BEDTIME active Not Available Not Available No t Available doxycycline hyclate 100 mg tablet 08/05 completed Not Available Not Available Not Available dicyclomine 10 mg capsule TAKE 1 CAPSULE BY MOUTH THREE TIMES DAILY active Not Available Not Available No t Available lamotrigine 100 mg tablet TK 1 T PO QHS active Not Available Not Available No t Available naproxen 500 mg tablet TK 1 T PO BID PRF PAIN active Not Available Not Available No t Available amoxicillin 875 mg-potassiu m clavulanate 125 mg tablet 08/05 completed Not Available Not Available Not Available midodrine 10 mg tablet TAKE 1 TABLET BY MOUTH THREE TIMES DAILY DIRECTED active Not Available Not Available No t Available aripiprazol e 5 mg tablet TAKE 1 TABLET BY MOUTH ONCE DAILY active Not Available Not Available No t Available nitrofurant oin monohydrate /macrocryst als 100 mg capsule TAKE 1 CAPSULE BY MOUTH TWICE DAILY FOR 3 DAYS 08/05 completed Not Available Not Available Not Available lactulose 10 gram/15 mL oral solution TAKE 30 ML BY MOUTH TWICE DAILY active Not Available Not Available No t Available solifenacin 10 mg tablet TAKE 1 TABLET BY MOUTH ONCE DAILY active Not Available Not Available No t Available aripiprazol e 2 mg tablet TK 1 T PO QAM active Not Available Not Available No t Available GaviLyte-G 236 gram-22.74 gram-6.74 gram-5.86 gram oral solution MIX AND DRINK DIRECTED active Not Available Not Available No t Available Viibryd 40 mg tablet TAKE 1 TABLET BY MOUTH EVERY DAY active Not Available Not Available No t Available Viibryd 20 mg tablet TAKE 1 TABLET BY MOUTH ONCE DAILY active Not Available Not Available No t Available Breo Ellipta 200 mcg-25 mcg/dose powder for inhalation active Not Available Not Available N ot Available Trulance 3 mg tablet TAKE 1 TABLET BY MOUTH ONCE DAILY active Not Available Not Available No t Available BinaxNOW COVID-19 Ag Self Test kit TEST DIRECTED TODAY active Not Available Not Available No t Available Paxlovid 300 mg (150 mg x 2)-100 mg tablets in a dose pack TK 2 NIRMATREL VIR TS AND 1 RITONAVIR T TOGETHER PO BID FOR 5 DAYS BID FOR 5 DAYS active Not Available Not Available No t Available Vitals Date Recorded Body height Body mass index (BMI) Body weight Heart rate Systolic And Diastolic Provider Name and Address Organization Details Last Updated DateTime 09/17/2022 168.91 cm 24 kg/m2 71591.45 g 76 /min 123/75 mm[Hg] Sultana Funes [place] - [facility] 09/17/2022 12:00:52 Date Recorded Body mass index (BMI) Body weight Systolic And Diastolic Provider Name and Address Organization Details Last Updated DateTime 12/08/2022 23.3 kg/m2 15723.68 g 124/79 mm[Hg] Sultana Funes MA [facility] 12/08/2022 09:53:12 Date Recorded Body height Provider Name an d Address Organization Details Last Updated DateTime 12/08/2022 168.91 cm Rosy MooremonsMARIO [facility] 2022 09:46:55 Date Recorded Body height Body mass index (BMI) Body weight Systolic And Diastolic Provider Name and Address Organization Details Last Updated DateTime 12/25/2022 168.91 cm 23 kg/m2 40415.1 g 110/64 mm[Hg] Sultana Funes MA [facility] 12/25/2022 12:02:09 Social History Question Answer Notes LastModified by [employer] Details LastModified Time Tobacco Smoking Status Former Smoker Sultana Funes [place] null, [facility] 09/17/2022 12:07:02 What Was The Date Of Your Most Recent Tobacco Screening? 12/08/2022 Information not available 12/08/2022 At What Age Did You Start Smoking Tobacco? 16 Information not available 09/17/2022 How Many Years Have You Used E-cigarettes Or Vape? 3 Information not available 09/17/2022 Sex: Female Functional Status Question Answer Note LastModified by [employer] Details LastModified Time Do you use any illicit or recreational drugs? No Information not available 09/17/2022 Do you or have you ever used any other forms of tobacco or nicotine? Yes vape Information not available 09/17/2022 What is your level of alcohol consumption? None Information not available 09/17/2022 Do you or have you ever used smokeless tobacco? [id number] Information not available 09/17/2022 Do you or have you ever used e-cigarettes or vape? Current user of electronic cigarettes Information not available 09/17/2022 Mental Status None recorded. Family History Relationship Description Onset Age of this Age Resolved Age Notes LastModified by Organization Details LastModified Time Mother IgA nephropathy psimmonsma Not available 08:35:56 Father Heart disease psimmonsma Not available 09/17 08:36:06 Brother Multiple sclerosis psimmonsma Not available 09/17 08:36:28 Medical History Condition Response Coronary Artery Disease N Other N Atrial Fibrillation N High Blood Pressure N Kidney or Bladder Problems N Thyroid Problems N GI Problems N Depression N COPD N Blood Clots N Skin Problems N Anemia N Heart Attack (OK) N Anxiety Disorder N Diabetes N Muscle, Joint, or Bone Problems N Seizures/Epilepsy N Acid Reflux (GERD) N Cancer N Stroke N Asthma N Allergies N High Cholesterol N Hepatitis N Liver Disease N Headaches N Heart Failure N Osteoporosis N Gynecological History Statement/Question Response Date of Last Mammogram Flow Moderate Date of LMP STIs/STDs N Duration of Flow (days) 7 Most Recent Mammogram 10/31/2022 Age at Menarche 13 Current Control Method Hysterectom y Age at First Child 21 Menses Monthly Y Date of Last Pap Smear LMP Unknown Obstetrics History GPAL:G 3 P 2 0 1 2 Type Value Full Term 2 Spontaneous 1 Living 2 Total 3 Immunizations Vaccine Type Date Status Note Provider Nam e and Address Organization Details Recorded Time COVID-19, mRNA, LNP-S, PF, 100 mcg/0.5mL dose or 50 mcg/0.25mL dose 09/11/2020 completed SOSA Mercado, [place] - [facility] 09/11/2020 15:09:21 COVID-19, mRNA, LNP-S, PF, 100 mcg/0.5mL dose or 50 mcg/0.25mL dose 10/09/2020 completed SOSA Escobar, [place] - [facility] 10/09/2020 16:05:05 Past Encounters Encounter ID Performer Location Encounter Start Date Encounter Closed Date Diagnosis/Indication Diagnosis SNOMED-CT Code Diagnosis ICD10 Code Diagnosis Note [id number] MD Artis Escobar 14 IM [address] [place] [address] 09/11/2020 12:04:34 09/12/2020 10:22:05 Administration of SARS-CoV-2 antigen vaccine 775947734 Z23 [id number] MD Artis Escobar 14 IM 4 [facility] [place] [address] 10/09/2020 15:33:56 10/10/2020 07:01:40 Administration of SARS-CoV-2 antigen vaccine 621592810 Z23 [id number] SEGUNDO Grant 14 OB [address] [facility] [place] [address] 09/17/2022 11:40:24 09/18/2022 09:25:16 Screening mammography 82424660 Z12.31 Importance of yearly mammograms and sbe exam discussed with pt. Mammogram order given, pt verbalized understand ing. Gynecologi c examination 89655510 Z01.419 1. Counseled regarding prevention of STD's , condom use and prevention . 2. Counseled regarding contracept ken options, risk factors and side effects. 3. Advised avoidance of tobacco, alcohol, and drugs . 4. Counseled regarding folic acid supplement ation, calcium needs and prevention of osteoporos is . 5. BSE reviewed and recommende d. 6. Follow up in one year or sooner if needed. Menopausal syndrome 1237 23535 N95.9 Pt would like to continue on hrt. Pt aware of risks of cardiac issues, blood clot and stroke. [id number] SEGUNDO Grant 14 OB [address] [place] [place] [address] 12/08/2022 09:43:54 12/09/2022 08:35:48 At increased risk of urinary tract infection 507076197 Z91.89 1. Will monitor as dip was negative. 2. Pt instructed to increase fluids, decrease soda, sugary beverages and caffeinate d beverages. 3. To call office if symptoms worsen or do not improve changes. Chronic pe lvic pain of female 272248083 R10.2 Will refer to urogyn/amanda dawna for evaluation of endometrio sis and scar tissue formation. Pt v/u. Chronic constipation 236 158819 K59.09 Has appt with GI today at 1030, will continue to follow with GI for stomach issues. Pt v/u. [id number] SEGUNDO Grant 14 OB [address] [place] [place] [address] 12/25/2022 11:50:07 12/30/2022 09:01:34 Chronic pelvic pain of female 508756785 R10.2 Will refer to gen surgery for evaluation of endometrio sis and scar tissue formation. Pt v/u. Has appt today at 1300. Health Concerns Section Related Observation LastModified by Organization Detai ls LastModified Time None Recorded Concern Status LastModified by Organization Details LastModified Time None Recorded Advance Directives Directive None Recorded Payers Insurance Date Sequence Insurance Name Policy Number Policy Hernandez Covered Member ID Hernandez Member ID Guarantor Name 01/05/2025 1 [employer] Ute Madden [id number] Ute Madden 01/05/2025 1 [employer] [id number] Ute Madden [id number] Ute Madden 01/05/2025 1 [facility] [id number] Ute Madden [id number] Ute Madden 01/05/2025 1 [employer] ([facility] ILONEX Ute Madden [id number] Ute Madden Notes Date Note Type Note Provider Name and Address Organization Details Recorded Time 09/17/2022 text/html Annual GYNReport ed bypatient.History: no gynecologic complaints Menstrual cycle:Normal menses Urinary symptoms:No hematuria; No incontinence Vulva:No genital lesion Vagina:Normal vaginal discharge Breast:No breast pain; No breast lump; No nipple discharge Sexual complaints:No sexual complaints; No pain during intercourse; Normal libido Menopausal Symptoms:No menopausal symptoms; Normal vaginal lubrication Psychological symptoms:No depression; No anxiety; No PMDD Preventive measures:Encourage self breast examination; Encourage regular exercise; Encourage no tobacco use; Encourage regular mammograms starting age 40; Needs to schedule mammogram 57 yo fe here for annual exam- hysterectomy 10 years ago d/t severe endometriosis- needs mammogram order- hx , former smoker KAMRAN Grant- Attn: Accounting,[address] [place], [address], [facility] 09/17/2022 12:44:57 12/08/2022 text/html Annual GYNReport ed bypatient.Urinary symptoms:No hematuria; No incontinence Vulva:No genital lesion Vagina:Normal vaginal discharge Breast:No breast pain; No breast lump; No nipple discharge Sexual complaints:No sexual complaints; No pain during intercourse; Normal libido Menopausal Symptoms:No menopausal symptoms; Normal vaginal lubrication Psychological symptoms:No depression; No anxiety; No PMDD Preventive measures:Encourage self breast examination; Encourage regular exercise; Encourage no tobacco use; Encourage regular mammograms starting age 40; Needs to schedule mammogram 57 yo fe here for chronic pelvic pain- hysterectomy 10 years ago d/t severe endometriosis- 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 and had issues with scar tissue wrapped around colon and intestines, pt states pain comes and goes when she is constipated and doubles her over, unable to get out of bed due to pain- hx , former smoker ANA Grant Attn: Accounting[address] [place], [address], [facility] 12/08/2022 11:35:04 12/25/2022 text/html Annual GYNReport ed bypatient.Urinary symptoms:No hematuria; No incontinence Vulva:No genital lesion Vagina:Normal vaginal discharge Breast:No breast pain; No breast lump; No nipple discharge Sexual complaints:No sexual complaints; No pain during intercourse; Normal libido Menopausal Symptoms:No menopausal symptoms; Normal vaginal lubrication Psychological symptoms:No depression; No anxiety; No PMDD Preventive measures:Encourage self breast examination; Encourage regular exercise; Encourage no tobacco use; Encourage regular mammograms starting age 40; Needs to schedule mammogram 57 yo fe here for chronic pelvic pain follow up- hysterectomy 10 years ago d/t severe endometriosis- 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 and had issues with scar tissue wrapped around colon and intestines, pt states pain comes and goes when she is constipated and doubles her over, unable to get out of bed due to pain- hx , former smoker- was seen by urogyn in [place] last week, he determined she needed to see gen surg which she will see today at 1300, Dr. Granados at [facility] in [place]- states she called her gi surgeon last week due to severe pain and was told there was nothing they could do about her pain- states she can barely eat, bloating (2 pound weight loss since 12/09/22) SEGUNDO Grant Attn: Accounting[address] [place], [address], [facility] 12/25/2022 12:31:18 OBGyn Episode No OBEpisode recorded.
--- OUTSIDE RECORDS SUMMARY | 2025-01-15 11:22 | XMS_ITS | Clinical Summary ---
Author Organization [facility] Address [address] [place] [address] Care Team Providers Care Safety Investigator/Cause Analyst Name Role Phone Unavailable Primary Care Provider Unavailabl e Source Comments [facility],non-[facility] health Affiliates and Associated Physician Practices is amultiple site organization consisting of ambulatory clinics and hospital sitesin [place], [place], [place] and [place]. This disclosure is being madepursuant to the Care Everywhere program and may not contain all information available regarding this patient. Last updated 18.[facility] Immunizations Immunization Administration Dates Next Due FLU VACCINE QUAD IIV4 PF ID 03/25/2016 INFLUENZA VACCINE, QUADR. (F LUZONE; FLULAVAL; FLUARIX; AFLURIA QUADRIVALENT; 6MO+), 0.5 ML (IIV4) 05/02/2019 Social History Tobacco Use Types Packs/Day Years Used Date Smoking Tobacco: Never Assessed Comments Unknown Sex and Gender Information Value Date Recorded Sex Assigned at Not on file Legal Sex Female 2:21 PM CDT Gender Identity Not on file Sexual Orientation Not on file Plan of Treatment Health Maintenance Due Date Last Done Comments COLOGUARD (AGES 45-75) - COL ON CA SCREENING 1966 COLON MONITORING 1966 COLONOSCOPY - COLON CA SCREENING 1966 CT COLONOGRAPHY - COLON CA SCREENING 1966 Colorectal Cancer Screening 1966 FIT - COLON CA SCREENING 1966 FLEX SIG - COLON CA SCREENING 1966 LIPID TESTING 1966 MAMMOGRAM 1966 HIV SCREENING 1981 HEPATITIS C SCREENING 04/08/1984 DTAP/TDAP/TD VACCINES (1 - Tdap) 1985 HEPATITIS B VACCINE (1 of 3 - 19+ 3-dose series) 1985 PAP SMEAR 1987 PNEUMOCOCCAL VACCINE 50+ (1 of 1 - PCV) 2016 ZOSTER VACCINE (1 of 2) 2016 COVID-19 VACCINE (1 - 2023-2 5 season) 2024 DEPRESSION SCREENING 07/06/2024 INFLUENZA VACCINE (#1) 2025 9, 03/25/2016 HIB VACCINE Aged Out No longer eligi ble based on patient's age to complete this topic HPV VACCINE Aged Out No longer eligi ble based on patient's age to complete this topic MENINGOCOCCAL (Group B) VACCINE SHARED DECISION-MAKING Aged Out No longer eligible based on patient's age to complete this topic MENINGOCOCCAL GROUPS A/C/Y/W VACCINE Aged Out No longer eligible b ased on patient's age to complete this topic Insurance [facility] [place] [address] [facility] [employer]
--- OUTSIDE RECORDS SUMMARY | 2025-01-15 11:22 | XMS_ITS ---
Author Organization [facility] [employer] [facility] Address [address] [place] [address] [address] Care Team Providers Care Foundry Technician Name Role Phone Savanna BAÑUELOS, Tiffany Primary Care Provider Unavaila Nae Saldaña Unavailable [phone] REASON FOR VISIT follow up Social History Sex Assigned At : Social History Observation Description Sex Assigned At Female Encounters Encounter Location Date Provider Diagnosis [facility] [employer] [place] [id number] [place] [address] 12/19/2024 Nae Jett Plan Of Treatment Next Appt Details Provider Name:Nae Jett , 03/16/2025 09:15:00 AM, [address], [address], [place], [address], Progress Notes * DALILA SALVADORDOB:[birth year] (59 yo F)Acc No.[id number]:12/19/2024 Patient: Satnam DALILA ALEMAN Provider: CYRUS NAJERAHNP :1965 A ge:59 Y S ex:Female Date:12/19/2024 Address:[address] [facility] Pcp:Tiffany Corrales NP Subjective: * Chief Complaints: * 1 . Follow up. * Medical History: Objective: * Vitals: Assessment: Plan: * Treatment: * Billing Information: * Visit Code: * Procedure Codes: * Electronic signature of SUZANNE Vaughan on 01/15/2025 at 11:21 AM CDT Sign off status: Pending * Provider: SUZANNE NAJERA Date: 0 12/19/2024 Generated for Chata Cazares on: 0 01/15/2025 11:21 AM CDT
--- OUTSIDE RECORDS SUMMARY | 2025-01-15 11:22 | XMS_ITS | Patient Health Record ---
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 Name Role Phone Savanna BAÑUELOS, Tiffany Primary Care Provider UnavailNae Quintero Unavailable [phone] Allergies Allergen (clinical drug ingredient) Drug/Non Drug Allergy documented on EMR Reaction Allergy Type Onset Date Status fentanyl fentaNYL Unknown Drug Allergy 11/24/2023 Active Results Component Value Reference Range Notes PRESCRIBED DRUGS, medMATCH(R ) ([id number]) Reviewed date:10/17/2024 08:02:18 AM Interpretation: Performing Lab:[facility] ALMONTE-[id number] Matheus Cespedes[address] Ryan Pope MD Notes/Report: FASTING: NO medMATCH Summary Prescribed Prescribed Not Prescribed Consistent Inconsistent Inconsistent Alprazolam Clonazepam Prescribed Drug 1 Alprazolam Prescribed Drug 2 Clonazepam DRUG MONITOR, BENZO, QN, URI NE ([id number]) Reviewed date:10/17/2024 08:02:10 AM Interpretation: Performing Lab:[facility] VALENZUELA-[address] Jose Juan AlvarezL[address] Wojciech Dawkins, Director - [id number] [facility] [facility] Notes/Report: FASTING: NO Alphahydroxyalprazolam 49 <25 ng/mL medMATCH aOH alprazolam CONSISTENT Alphahydroxymidazolam NEGATIVE <50 ng/mL Alphahydroxytriazolam NEGATIVE <50 ng/mL Aminoclonazepam 238 <25 ng/mL medMATCH Aminoclonazepam CONSISTENT Hydroxyethylflurazepam NEGATIVE <50 ng/mL Lorazepam NEGATIVE <50 ng/mL Nordiazepam NEGATIVE <50 ng/mL Oxazepam NEGATIVE <50 ng/mL Temazepam NEGATIVE <50 ng/mL Benzodiazepines Comments See Benzodiazepines Notes, LDT Notes Notes and Comments This drug testing is for medical treatment only. Analysis was performed as non-forensic testing and these results should be used only by healthcare providers to render diagnosis or treatment, or to monitor progress of medical conditions. Benzodiazepines Notes: aOH Alprazolam detected is consistent with the use of the drug Alprazolam. Aminoclonazepam detected is consistent with the use of the drug Clonazepam. LDT Notes: Confirmation tests were developed and their analytical performance characteristics have been determined by [employer]. It has not been cleared or approved by the FDA. This assay has been validated pursuant to the CLIA regulations and is used for clinical purposes. medMATCH(R) enables providers to identify if drug use is consistent or inconsistent with a corresponding prescribed medication(s) list. Healthcare Providers needing Interpretation assistance, please contact us at [phone] ( ) M-F, 8am to 10pm EST UDT Reviewed date:12/22/2024 03:16:46 PM Interpretation: Performing Lab: Notes/Report: THC NEG 0 - 50 ng/ml Cocaine NEG 0 - 300 ng/ml Amphetamine NEG 0 - 1000 ng/ml Buprenorphine (BUP) NG 0 - 10 ng/ml Secobarbital (Bar) NEG 0 - 300 ng/ml Oxazepam (BZO) POS 0 - 300 ng/ml 6-sysgffeczj-2,6-xxritgfu-8, 3-diphen ylpyrrolidine (EDDP) NEG 0 - 300 ng/ml Methamphetamine (MET) NEG 0 - 1000 ng/ml Methylenedioxymethamphetamine (MDMA) NEG 0 - 500 ng/ml Morphine (MOP 300/QFQ2379) NEG 0 - 300 ng/ml Methadone (MTD) NEG 0 - 300 ng/ml Phencyclidine (PCP) NEG 0 - 25 ng/ml Nortriptyline (TCA) NEG 0 - 1000 ng/ml Oxycodone NEG 0 - 300 ng/ml x NEG 0 - 300 ng/ml UDT Reviewed date:10/31/2024 10:13:45 AM Interpretation: Performing Lab: Notes/Report: THC N 0 - 50 ng/ml Cocaine N 0 - 300 ng/ml Amphetamine N 0 - 1000 ng/ml Buprenorphine (BUP) N 0 - 10 ng/ml Secobarbital (Bar) N 0 - 300 ng/ml Oxazepam (BZO) P 0 - 300 ng/ml 8-mbwxzsvfus-1,6-jukeeafc-3, 3-diphen ylpyrrolidine (EDDP) N 0 - 300 ng/ml Methamphetamine (MET) N 0 - 1000 ng/ml Methylenedioxymethamphetamine (MDMA) N 0 - 500 ng/ml Morphine (MOP 300/GSE5878) N 0 - 300 ng/ml Methadone (MTD) N 0 - 300 ng/ml Phencyclidine (PCP) N 0 - 25 ng/ml Nortriptyline (TCA) N 0 - 1000 ng/ml Oxycodone N 0 - 300 ng/ml x N 0 - 300 ng/ml UDT Reviewed date:10/10/2024 09:36:48 AM Interpretation: Performing Lab: Notes/Report: THC NEG 0 - 50 ng/ml Cocaine NEG 0 - 300 ng/ml Amphetamine NEG 0 - 1000 ng/ml Buprenorphine (BUP) NEG 0 - 10 ng/ml Secobarbital (Bar) NEG 0 - 300 ng/ml Oxazepam (BZO) POS 0 - 300 ng/ml 7-bmzeojowpf-9,8-ivzdkcud-5, 3-diphen ylpyrrolidine (EDDP) NEG 0 - 300 ng/ml Methamphetamine (MET) NEG 0 - 1000 ng/ml Methylenedioxymethamphetamine (MDMA) NEG 0 - 500 ng/ml Morphine (MOP 300/DKF5121) NEG 0 - 300 ng/ml Methadone (MTD) NEG 0 - 300 ng/ml Phencyclidine (PCP) NEG 0 - 25 ng/ml Nortriptyline (TCA) NEG 0 - 1000 ng/ml Oxycodone NEG 0 - 300 ng/ml x NEG 0 - 300 ng/ml UDT Reviewed date:07/18/2024 09:09:11 AM Interpretation: Performing Lab: Notes/Report: THC NEG 0 - 50 ng/ml Cocaine NEG 0 - 300 ng/ml Amphetamine NEG 0 - 1000 ng/ml Buprenorphine (BUP) NEG 0 - 10 ng/ml Secobarbital (Bar) NEG 0 - 300 ng/ml Oxazepam (BZO) POS 0 - 300 ng/ml 2-yfnspsfxhj-1,6-ykcxdkgo-6, 3-diphen ylpyrrolidine (EDDP) NEG 0 - 300 ng/ml Methamphetamine (MET) NEG 0 - 1000 ng/ml Methylenedioxymethamphetamine (MDMA) NEG 0 - 500 ng/ml Morphine (MOP 300/NWK8703) NEG 0 - 300 ng/ml Methadone (MTD) NEG 0 - 300 ng/ml Phencyclidine (PCP) NEG 0 - 25 ng/ml Nortriptyline (TCA) NEG 0 - 1000 ng/ml Oxycodone NEG 0 - 300 ng/ml x NEG 0 - 300 ng/ml UDT Reviewed date:05/20/2024 09:08:57 AM Interpretation: Performing Lab: Notes/Report: THC N 0 - 50 ng/ml Cocaine N 0 - 300 ng/ml Amphetamine N 0 - 1000 ng/ml Buprenorphine (BUP) N 0 - 10 ng/ml Secobarbital (Bar) N 0 - 300 ng/ml Oxazepam (BZO) P 0 - 300 ng/ml 7-mplexjmmqc-1,1-tqqyyrld-1, 3-diphen ylpyrrolidine (EDDP) N 0 - 300 ng/ml Methamphetamine (MET) N 0 - 1000 ng/ml Methylenedioxymethamphetamine (MDMA) N 0 - 500 ng/ml Morphine (MOP 300/VQI7442) N 0 - 300 ng/ml Methadone (MTD) N 0 - 300 ng/ml Phencyclidine (PCP) N 0 - 25 ng/ml Nortriptyline (TCA) N 0 - 1000 ng/ml Oxycodone N 0 - 300 ng/ml x N 0 - 300 ng/ml DRUG MONITOR,AMPHETAMINE, QN , URINE ([id number]) Reviewed date:11/10/2024 05:10:19 PM Interpretation: Performing Lab:CB, [facility]-[address], [facility] HealthScxuGD[address] Wojciech Dawkins, Director - [id number] [facility] Notes/Report: FASTING: NO Amphetamine NEGATIVE <250 ng/mL Methamphetamine NEGATIVE <250 ng/mL Amphetamines Comments See LD T Notes Notes and Comments This drug testing is for medical treatment only. Analysis was performed as non-forensic testing and these results should be used only by healthcare providers to render diagnosis or treatment, or to monitor progress of medical conditions. LDT Notes: Confirmation tests were developed and their analytical performance characteristics have been determined by [employer]. It has not been cleared or approved by the FDA. This assay has been validated pursuant to the CLIA regulations and is used for clinical purposes. Healthcare Providers needing Interpretation assistance, please contact us at [phone] ( ) M-F, 8am to 10pm EST PRESCRIBED DRUGS, medMATCH(R ) (50388) Reviewed date:07/27/2024 09:23:37 AM Interpretation: Performing Lab:[facility]-[id number] Yin Jimenez, [id number] Ryan Pope MD Notes/Report: FASTING: UNKNOWN medMATCH Summary Prescribed Prescribed Not Prescribed Consistent Inconsistent Inconsistent Alprazolam Clonazepam Prescribed Drug 1 Alprazolam Prescribed Drug 2 Clonazepam DRUG MONITOR, RAMAN TRAN [place] ([id number]) Reviewed date:07/27/2024 09:23:24 AM Interpretation: Performing Lab:[facility] [place] [facility]-Jose Juan [id number] [facility] Anup, Jose Juan MaxPmmhBZ[address] Wojciech Dawkins, Director - [address] [address] [facility] Notes/Report: FASTING: UNKNOWN Alphahydroxyalprazolam 97 <25 ng/mL medMATCH aOH alprazolam CONSISTENT Alphahydroxymidazolam NEGATIVE <50 ng/mL Alphahydroxytriazolam NEGATIVE <50 ng/mL Aminoclonazepam 528 <25 ng/mL medMATCH Aminoclonazepam CONSISTENT Hydroxyethylflurazepam NEGATIVE <50 ng/mL Lorazepam NEGATIVE <50 ng/mL Nordiazepam NEGATIVE <50 ng/mL Oxazepam NEGATIVE <50 ng/mL Temazepam NEGATIVE <50 ng/mL Benzodiazepines Comments See Benzodiazepines Notes, LDT Notes Notes and Comments This drug testing is for medical treatment only. Analysis was performed as non-forensic testing and these results should be used only by healthcare providers to render diagnosis or treatment, or to monitor progress of medical conditions. Benzodiazepines Notes: aOH Alprazolam detected is consistent with the use of the drug Alprazolam. Aminoclonazepam detected is consistent with the use of the drug Clonazepam. LDT Notes: Confirmation tests were developed and their analytical performance characteristics have been determined by [employer]. It has not been cleared or approved by the FDA. This assay has been validated pursuant to the CLIA regulations and is used for clinical purposes. medBigfoot NetworksTCH(R) enables providers to identify if drug use is consistent or inconsistent with a corresponding prescribed medication(s) list. Healthcare Providers needing Interpretation assistance, please contact us at [phone] ( ) M-F, 8am to 10pm EST Reason For Referral No Information Medications Medication SIG (Take, Route, Frequency, Duration) Notes Start Date End Date Status ALPRAZolam 1 MG 1 tablet Orally three times a day; Duration: 30 days D/c Clonazepam 12/22/2024 Active Estradiol 2 MG Oral 11/24/2023 Acti ve QUEtiapine Fumarate 100 MG 1 tablet Orally Once a day; Duration: 90 days Active Omeprazole 20 MG Oral 11/24/2023 Ac tive Sertraline HCl 50 MG 1 tablet Oral at bedtime; Duration: 90 days Active Omeprazole 40 MG Oral 11/24/2023 No t-Taking Sucralfate 1 GM Oral 11/24/2023 Not -Taking Sertraline HCl 100 MG 1 tablet Orally Once a day; Duration: 90 days 10/10/2024 Active Immunizations Vaccine Route Administration Date Status Comme nts Influenza, unspecified formulation Unknown 04/06/2023 A dministered Pneumococcal conjugate PCV 13 Unknown 04/06/2023 Admini stered Social History Tobacco Use: Social History Observation Description Date Details (start date - stop date) Current Smoker NA - NA Sex Assigned At : Social History Observation Description Sex Assigned At Female Sexual History Question Answer Notes Had sex in the past 12 months (vaginal, oral, or anal)? Yes with Men only Tobacco Control (Standard) Question Answer Notes Tobacco use: Current smoker Additional Findings: Tobacco user e-cigarette AUDIT-C (Standard) Question Answer Notes Did you have a drink containing alcohol in the p ast year? 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 (Z79.899) 11/24/19 Active confirmed Problem Depression Screening (661413321) Encounter for screening for depression (Z13.31) Active confirmed Problem Panic disorder (174168414) Panic disorder [episodic paroxysmal anxiety] without agoraphobia (F41.0) 11/24/19 Active confirmed Problem Moderate recurrent major depression (17435567) MDD (major depressive disorder), recurrent episode, moderate (F33.1) Active confirmed Problem Elevated blood-pressure reading without diagnosis of hypertension (660522054) Elevated blood pressure reading (R03.0) Active confirmed Problem Severe major depression, single episode, without psychotic features (81970147) MDD (major depressive disorder), severe (F32.2) Active confirmed Problem Tobacco use (849571489) Nicotine use (Z72.0) Active confirmed Vital Signs Heart Rate 97 /min 12/22/2024 Respiratory Rate 17 /min 11/17/2024 Height-cm 167.64 cm 12/22/2024 Blood pressure diastolic 77 mm Hg 12/22/2024 Weight-kg 70.31 kg 12/22/2024 Height 66.00 in 12/22/2024 Blood pressure systolic 123 mm Hg 12/22/2024 Weight 155 lbs 12/22/2024 BMI 25.01 kg/m2 12/22/2024 Encounters Encounter Location Date Provider Diagnosis [facility] [address] [facility] [address] [address] 01/26/2024 Nae Jett Major depressive disorder, recurrent, mild F33.0 ; Generalized anxiety disorder F41.1 ; Panic disorder [episodic paroxysmal anxiety] without agoraphobia F41.0 and Other assisted (current) drug therapy Z79.899 [facility] [address] [place] [address] 03/21/2024 Nae Thery Major depressive disorder, recurrent, mild F33.0 ; Generalized anxiety disorder F41.1 ; Panic disorder [episodic paroxysmal anxiety] without agoraphobia F41.0 and Other exterminator helper termite (current) drug therapy Z79.899 [facility] [address] [facility] [address] [place] [address] 05/09/2024 Nae Thery Generalized anxiety disorder F41.1 ; MDD (major depressive disorder), severe F32.2 ; Panic disorder [episodic paroxysmal anxiety] without agoraphobia F41.0 ; Other exterminator helper termite (current) drug therapy Z79.899 and Elevated blood pressure reading R03.0 [facility] [address] [facility] [address] [place] [address] 05/20/2024 Nae Thery Generalized anxiety disorder F41.1 ; MDD (major depressive disorder), severe F32.2 ; Panic disorder [episodic paroxysmal anxiety] without agoraphobia F41.0 ; Other exterminator helper termite (current) drug therapy Z79.899 and Elevated blood pressure reading R03.0 [facility] [address] [facility] [address] [facility] [address] [place] [address] 07/18/2024 Nae Thery Generalized anxiety disorder F41.1 ; MDD (major depressive disorder), severe F32.2 ; Panic disorder [episodic paroxysmal anxiety] without agoraphobia F41.0 and Other assisted (current) drug therapy Z79.899 [facility] [address] [facility] [address] [place] [address] 08/18/2024 Nae Thery [facility] [address] [place] [address] 10/10/2024 Nae Thery Generalized anxiety disorder F41.1 ; MDD (major depressive disorder), recurrent episode, moderate F33.1 ; Panic disorder [episodic paroxysmal anxiety] without agoraphobia F41.0 ; Other assisted (current) drug therapy Z79.899 ; Nicotine use Z72.0 and [facility]counter for screening for [facility].31 [facility] [address] [facility] [address] [place] [address] 10/31/2024 Nae Thery Encounter for screen ing for depression Z13.31 ; Nicotine use Z72.0 ; Encounter for screening for cardiovascular disorders Z13.6 ; Generalized anxiety disorder F41.1 ; MDD (major depressive disorder), recurrent episode, moderate F33.1 ; Panic disorder [episodic paroxysmal anxiety] without agoraphobia F41.0 and Other assisted (current) drug therapy Z79.899 [facility], [place] [id number] [facility] [address] [address] 11/17/2024 Nae Thery Generalized anxiety disorder F41.1 ; MDD (major depressive disorder), recurrent episode, moderate F33.1 ; Encounter for screening for cardiovascular disorders Z13.6 ; Encounter for screening for depression Z13.31 ; Nicotine use Z72.0 ; Panic disorder [episodic paroxysmal anxiety] without agoraphobia F41.0 and Other assisted (current) drug therapy Z79.899 [place] [id number] [address] 12/22/2024 Nae Thery Generalized anxiety disorder F41.1 ; MDD (major depressive disorder), recurrent episode, moderate F33.1 ; Nicotine use Z72.0 ; Encounter for screening for cardiovascular disorders Z13.6 ; Encounter for screening for depression Z13.31 ; Panic disorder [episodic paroxysmal anxiety] without agoraphobia F41.0 ; Other exterminator helper termite (current) drug therapy Z79.899 and Negative depression screening Z13.31 [facility], [address] [address] 02/08/2024 Nae Thery [address] [address] 03/31/2024 Nae Thery Major depressive disorder, recurrent, mild F33.[address] [address] 04/19/2024 Nae Thery Major depressive disorder, recurrent, mild F33.0 and Generalized anxiety disorder F41.1 [facility], [address] [address] 05/27/2024 Nae Thery [facility] [address] [place] [address] 07/18/2024 Nae Johnie [facility] [address] [place] [address] 07/26/2024 Nae Johnie Generalized anxiety disorder F41.1 [facility] [address] [place] [address] 11/16/2024 Nae Jett Assessments Encounter Date Diagnosis (ICD Code) Assessment Notes Treatment Notes Treatment Clinical Notes Section Notes 07/26/2024 Generalized anxiety disorder (ICD-10 - F41.1) Vistaril 10 mg TID sent to pharmacy for anxiety and panic 10/10/2024 Generalized anxiety disorder (ICD-10 - F41.1) Learning About Generalized Anxiety Disorder material was published, Generalized Anxiety Disorder: Care Instructions material was published, Learning About Anxiety Disorders material was published, Generalized Anxiety Disorder: Care Instructions material was published, Learning About Generalized Anxiety Disorder material was published, Learning About Anxiety Disorders material was published 1. Generalized anxiety disorder - (hx paxil 20 mg BID - r/t agitated and trouble sleeping) discuss and educated on all rx- educated and discuss changes to rx to help depression, anxiety, panic Increase Zoloft 100 mg daily for 2 weeks then increase Zoloft 150 mg daily Increase Clonazepam 1 mg three a day- refill discuss decrease Xanax 0.5 mg daily once a day for next 2 week then stop continue therapy and work on coping skills, anxiety, worries, panic, depression, no early refills on control substance local pharmacy in [place] random uds educated on all rx and not to take Xanax and Clonazepam together patient would like tele visit related if anxiety/panic educated on all medications, benefits, side effects and risk, and educated on depression, anxiety, and mood d/o and educated on compliance of medications, metabolic and movement d/o education appointment is, continue therapy discussion with patient about course of treatment and patient instructions. education on serotonin syndrome SSRI/SNRI side effects discussed including but not limited to, gastric upset, nausea, vomiting, diarrhea and/or constipation, weight changes, sexual side effects including loss of libido, increased suicidal thoughts/behavior s in children and young adults, and serotonin syndrome. Discussed and educated pt regarding benzodiazepines are generally not intended for prolonged use and that use can cause tolerance, dependence, depression, and associated memory issues including dementias (this list is not exhaustive). Benzodiazepine use is generally not recommended concurrently with pain medications and/or other controlled substances due to increased risks of profound sedation, respiratory depression, coma, and even . They are not to be used with any alcohol, as this combination can also be lethal. Patient was provided caution 2. Panic disorder -obtain labs PCP OBTAIN RECORDS Dr. Kurtz office refer to therapy- APRIL Patient will see if afford- patient will schedule appt APRIL Clonazepam 1 mg three a day Xanax 0.5 mg once a day for 2 weeks then stop- 3. recurrent major depression- discuss and educated on medication options ABILIFY 5 mg bedtime- educated on all rx, benefits, side effects and risk Second generation antipsychotics (SGAs) have metabolic syndrome issues with weight gain, increase in prolactin, increased waist circumference, increased lipids, and increased glucose. Thus routine monitoring of weight, metabolic labs, etc. is indicated. A general rank ordering of antipsychotics that have the greatest to the least risk of metabolic effects is olanzapine, quetiapine, risperidone, ziprasidone, and aripiprazole. However, weight gain can occur with all of these drugs and considerable variability exists among patients receiving the same drug regarding the risk of metabolic effects. Anti-psychotic agents not only increase the risk of metabolic disorder, they also increase the risk of CVA, akathisia, and movement disorders including EPS or tardive dyskinesia (more common with first generation antipsychotics) and more. 4. Insomnia sleep hygiene discuss sleep study options Long-term drug therapy 07/18/2024 Generalized anxiety disorder (ICD-10 - F41.1) Learning About Generalized Anxiety Disorder material was published, Generalized Anxiety Disorder: Care Instructions material was published, Learning About Anxiety Disorders material was published, Generalized Anxiety Disorder: Care Instructions material was published, Learning About Generalized Anxiety Disorder material was published, Learning About Anxiety Disorders material was published 1. Generalized anxiety disorder - (hx paxil 20 mg BID - r/t agitated and trouble sleeping) discuss and educated on Zoloft 75 mg daily Clonazepam 1 mg twice a day- am and bedtime- refill plan to change to three times a day in near future when off Xanax- IF NEEDED TO INCREASE Clonazepam discuss decrease Xanax 0.5 mg daily twice a day and not at same time as Clonazepam- for panic attacks - discuss slow decrease and plan to be on 1 benzo- discuss GDR- no early refills on control substance local pharmacy in [facility] uds educated on all rx and not to take Xanax and Clonazepam together patient would like tele visit related if anxiety/panic educated on all medications, benefits, side effects and risk, and educated on depression, anxiety, and mood d/o and educated on compliance of medications, metabolic and movement d/o education appointment is, continue therapy discussion with patient about course of treatment and patient instructions. education on serotonin syndrome SSRI/SNRI side effects discussed including but not limited to, gastric upset, nausea, vomiting, diarrhea and/or constipation, weight changes, sexual side effects including loss of libido, increased suicidal thoughts/behavior s in children and young adults, and serotonin syndrome. Discussed and educated pt regarding benzodiazepines are generally not intended for prolonged use and that use can cause tolerance, dependence, depression, and associated memory issues including dementias (this list is not exhaustive). Benzodiazepine use is generally not recommended concurrently with pain medications and/or other controlled substances due to increased risks of profound sedation, respiratory depression, coma, and even . They are not to be used with any alcohol, as this combination can also be lethal. Patient was provided caution 2. Panic disorder -obtain labs PCP OBTAIN RECORDS Dr. Kurtz office refer to therapy- APRIL Patient will see if afford- patient will schedule appt APRIL Zoloft 75 mg daily 90 days Clonazepam 1 mg twice a day Xanax 0.5 mg twice a day plan to taper off- 3. recurrent major depression- discuss and educated on medication options ABILIFY 5 mg bedtime- educated on all rx, benefits, side effects and risk Second generation antipsychotics (SGAs) have metabolic syndrome issues with weight gain, increase in prolactin, increased waist circumference, increased lipids, and increased glucose. Thus routine monitoring of weight, metabolic labs, etc. is indicated. A general rank ordering of antipsychotics that have the greatest to the least risk of metabolic effects is olanzapine, quetiapine, risperidone, ziprasidone, and aripiprazole. However, weight gain can occur with all of these drugs and considerable variability exists among patients receiving the same drug regarding the risk of metabolic effects. Anti-psychotic agents not only increase the risk of metabolic disorder, they also increase the risk of CVA, akathisia, and movement disorders including EPS or tardive dyskinesia (more common with first generation antipsychotics) and more. 4. Long-term drug therapy 03/31/2024 Major depressive disorder, recurrent, mild (ICD-10 - F33.0) 04/19/2024 Major depressive disorder, recurrent, mild (ICD-10 - F33.0) 05/09/2024 Generalized anxiety disorder (ICD-10 - F41.1) Learning About Generalized Anxiety Disorder material was published, Generalized Anxiety Disorder: Care Instructions material was published, Learning About Anxiety Disorders material was published, Generalized Anxiety Disorder: Care Instructions material was published, Learning About Generalized Anxiety Disorder material was published, Learning About Anxiety Disorders material was published 1. Generalized anxiety disorder - (hx paxil 20 mg BID - r/t agitated and trouble sleeping) discuss and educated on Zoloft - Zoloft 100 mg daily for depression and anxiety- rx sent 05/09/24 # 90 Clonazepam 1 mg twice a day- am and bedtime- no refill due today scheduled 05/20/24 plan to change to three times a day in near future when off Xanax- IF NEEDED TO INCREASE Clonazepam Xanax 1.5 mg daily in afternoon- for panic attacks - discuss slow decrease and plan to be on 1 benzo- discuss GDR- no refill given 05/09/24 no early refills on control [facility] in [facility] educated on all rx and not to take Xanax and Clonazepam together patient would like tele visit related to anxiety/panic educated on all medications, benefits, side effects and risk, and educated on depression, anxiety, and mood d/o and educated on compliance of medications, metabolic and movement d/o education appointment is, continue therapy discussion with patient about course of treatment and patient instructions. education on serotonin syndrome SSRI/SNRI side effects discussed including but not limited to, gastric upset, nausea, vomiting, diarrhea and/or constipation, weight changes, sexual side effects including loss of libido, increased suicidal thoughts/behavior s in children and young adults, and serotonin syndrome. Discussed and educated pt regarding benzodiazepines are generally not intended for prolonged use and that use can cause tolerance, dependence, depression, and associated memory issues including dementias (this list is not exhaustive). Benzodiazepine use is generally not recommended concurrently with pain medications and/or other controlled substances due to increased risks of profound sedation, respiratory depression, coma, and even . They are not to be used with any alcohol, as this combination can also be lethal. Patient was provided caution 2. Panic disorder -obtain labs PCP OBTAIN RECORDS Dr. Kurtz office refer to therapy- APRIL Patient will see if afford Zoloft 100 mg daily Clonazepam 1 mg twice a day Xanax 1.5 mg daily plan to taper off 3. recurrent major depression- severe - discuss and educated on medication options Will add ABILIFY 2.5 MG AT BEDTIME for 1 week then increase Abilify 5 mg bedtime educated on all rx, benefits, side effects and risk 4. Long-term drug therapy 05/09/2024 MDD (major depressive disorder), severe (ICD-10 - F32.2) Learning About Depression Screening material was published, Learning About Depression material was published, Learning About Mood Disorders material was published, Learning About How to Get Help During a Mental Health Crisis material was published, Depression Treatment: Care Instructions material was published 1. Generalized anxiety disorder - (hx paxil 20 mg BID - r/t agitated and trouble sleeping) discuss and educated on Zoloft - Zoloft 100 mg daily for depression and anxiety- rx sent 05/09/24 # 90 Clonazepam 1 mg twice a day- am and bedtime- no refill due today scheduled 05/20/24 plan to change to three times a day in near future when off Xanax- IF NEEDED TO INCREASE Clonazepam Xanax 1.5 mg daily in afternoon- for panic attacks - discuss slow decrease and plan to be on 1 benzo- discuss GDR- no refill given 05/09/24 no early refills on control [facility] pharmacy in [facility] educated on all rx and not to take Xanax and Clonazepam together patient would like tele visit related to anxiety/panic educated on all medications, benefits, side effects and risk, and educated on depression, anxiety, and mood d/o and educated on compliance of medications, metabolic and movement d/o education appointment is, continue therapy discussion with patient about course of treatment and patient instructions. education on serotonin syndrome SSRI/SNRI side effects discussed including but not limited to, gastric upset, nausea, vomiting, diarrhea and/or constipation, weight changes, sexual side effects including loss of libido, increased suicidal thoughts/behavior s in children and young adults, and serotonin syndrome. Discussed and educated pt regarding benzodiazepines are generally not intended for prolonged use and that use can cause tolerance, dependence, depression, and associated memory issues including dementias (this list is not exhaustive). Benzodiazepine use is generally not recommended concurrently with pain medications and/or other controlled substances due to increased risks of profound sedation, respiratory depression, coma, and even . They are not to be used with any alcohol, as this combination can also be lethal. Patient was provided caution 2. Panic disorder -obtain labs PCP OBTAIN RECORDS Dr. Kurtz office refer to therapy- APRIL Patient will see if afford Zoloft 100 mg daily Clonazepam 1 mg twice a day Xanax 1.5 mg daily plan to taper off 3. recurrent major depression- severe - discuss and educated on medication options Will add ABILIFY 2.5 MG AT BEDTIME for 1 week then increase Abilify 5 mg bedtime educated on all rx, benefits, side effects and risk 4. Long-term drug therapy 05/20/2024 Generalized anxiety disorder (ICD-10 - F41.1) Learning About Generalized Anxiety Disorder material was published, Generalized Anxiety Disorder: Care Instructions material was published, Learning About Anxiety Disorders material was published, Generalized Anxiety Disorder: Care Instructions material was published, Learning About Generalized Anxiety Disorder material was published, Learning About Anxiety Disorders material was published 1. Generalized anxiety disorder - (hx paxil 20 mg BID - r/t agitated and trouble sleeping) discuss and educated on Zoloft 75 mg daily Clonazepam 1 mg twice a day- am and bedtime- refill plan to change to three times a day in near future when off Xanax- IF NEEDED TO INCREASE Clonazepam Xanax 1.5 mg daily in afternoon- for panic attacks - discuss slow decrease and plan to be on 1 benzo- discuss GDR- no early refills on [facility] in [facility] educated on all rx and not to take Xanax and Clonazepam together patient would like tele visit related to anxiety/panic educated on all medications, benefits, side effects and risk, and educated on depression, anxiety, and mood d/o and educated on compliance of medications, metabolic and movement d/o education appointment is, continue therapy discussion with patient about course of treatment and patient instructions. education on serotonin syndrome SSRI/SNRI side effects discussed including but not limited to, gastric upset, nausea, vomiting, diarrhea and/or constipation, weight changes, sexual side effects including loss of libido, increased suicidal thoughts/behavior s in children and young adults, and serotonin syndrome. Discussed and educated pt regarding benzodiazepines are generally not intended for prolonged use and that use can cause tolerance, dependence, depression, and associated memory issues including dementias (this list is not exhaustive). Benzodiazepine use is generally not recommended concurrently with pain medications and/or other controlled substances due to increased risks of profound sedation, respiratory depression, coma, and even . They are not to be used with any alcohol, as this combination can also be lethal. Patient was provided caution 2. Panic disorder -obtain labs PCP OBTAIN RECORDS Dr. Kurtz office refer to therapy- APRIL Patient will see if afford- patient will schedule appt APRIL Zoloft 75 mg daily 90 days sent 05/20/24 Clonazepam 1 mg twice a day sent 05/20/24 with 1 refill Xanax 1.5 mg daily plan to taper off- sent 05/20/24 with 1 refill 3. recurrent major depression- discuss and educated on medication options ABILIFY 5 mg bedtime- sent 90 days 05/20/24 educated on all rx, benefits, side effects and risk Second generation antipsychotics (SGAs) have metabolic syndrome issues with weight gain, increase in prolactin, increased waist circumference, increased lipids, and increased glucose. Thus routine monitoring of weight, metabolic labs, etc. is indicated. A general rank ordering of antipsychotics that have the greatest to the least risk of metabolic effects is olanzapine, quetiapine, risperidone, ziprasidone, and aripiprazole. However, weight gain can occur with all of these drugs and considerable variability exists among patients receiving the same drug regarding the risk of metabolic effects. Anti-psychotic agents not only increase the risk of metabolic disorder, they also increase the risk of CVA, akathisia, and movement disorders including EPS or tardive dyskinesia (more common with first generation antipsychotics) and more. 4. Long-term drug therapy 01/26/2024 Major depressive disorder, recurrent, mild (ICD-10 - F33.0) Preventing Depression From Coming Back: Care Instructions material was published, Learning About Depression material was published, Depression Treatment: Care Instructions material was published 1. Generalized anxiety disorder - (hx paxil 20 mg BID - r/t agitated and trouble sleeping) discuss and educated on Zoloft - will increase Zoloft 75 mg daily for depression and anxiety Clonazepam 1 mg twice a day- am and bedtime- plan to change to three times a day in near future when off Xanax Xanax 2 mg daily in afternoon- for panic attacks - discuss may slow decrease in near future and plan to be on 1 benzo no early refills on control [facility] educated on all rx and not to take Xanax and Clonazepam together patient would like tele visit related to anxiety/panic educated on all medications, benefits, side effects and risk, and educated on depression, anxiety, and mood d/o and educated on compliance of medications, metabolic and movement d/o education appointment is, continue therapy discussion with patient about course of treatment and patient instructions. education on serotonin syndrome SSRI/SNRI side effects discussed including but not limited to, gastric upset, nausea, vomiting, diarrhea and/or constipation, weight changes, sexual side effects including loss of libido, increased suicidal thoughts/behavior s in children and young adults, and serotonin syndrome. Discussed and educated pt regarding benzodiazepines are generally not intended for prolonged use and that use can cause tolerance, dependence, depression, and associated memory issues including dementias (this list is not exhaustive). Benzodiazepine use is generally not recommended concurrently with pain medications and/or other controlled substances due to increased risks of profound sedation, respiratory depression, coma, and even . They are not to be used with any alcohol, as this combination can also be lethal. Patient was provided caution F41.1: Generalized anxiety disorder alprazolam 2 mg tablet - Take 1 tablet(s) every day by oral route as directed for 30 days. Qty: (30) tablet Refills: 0 Pharmacy: [place] [id number] clonazepam 1 mg tablet - Take 1 tablet(s) twice a day by oral route as directed for 30 days. Qty: (60) tablet Refills: 0 Pharmacy: [place] [id number] sertraline 50 mg tablet - Take 1 tablet(s) every day by oral route in the morning for 14 days. Qty: (30 tablet Refills: 2 Pharmacy: [place] [id number] Note to Pharmacy: total 75 mg sertraline 25 mg tablet - Take 1 tablet(s) every day by oral route in the morning for 30 days. Qty: (30) tablet Refills: 2 Pharmacy: [id number] Note to Pharmacy: total 75 mg 2. Panic disorder -obtain labs PCP OBTAIN RECORDS Dr. Kurtz office refer to therapy Zoloft Clonazepam 1 mg twice a day Xanax 2 mg daily F41.0: Panic disorder [episodic paroxysmal anxiety] 3. Mild recurrent major depression 4. Long-term drug therapy 01/26/2024 Generalized anxiety disorder (ICD-10 - F41.1) Learning About Generalized Anxiety Disorder material was published, Generalized Anxiety Disorder: Care Instructions material was published, Learning About Anxiety Disorders material was published 1. Generalized anxiety disorder - (hx paxil 20 mg BID - r/t agitated and trouble sleeping) discuss and educated on Zoloft - will increase Zoloft 75 mg daily for depression and anxiety Clonazepam 1 mg twice a day- am and bedtime- plan to change to three times a day in near future when off Xanax Xanax 2 mg daily in afternoon- for panic attacks - discuss may slow decrease in near future and plan to be on 1 benzo no early refills on control [facility] in [facility] educated on all rx and not to take Xanax and Clonazepam together patient would like tele visit related to anxiety/panic educated on all medications, benefits, side effects and risk, and educated on depression, anxiety, and mood d/o and educated on compliance of medications, metabolic and movement d/o education appointment is, continue therapy discussion with patient about course of treatment and patient instructions. education on serotonin syndrome SSRI/SNRI side effects discussed including but not limited to, gastric upset, nausea, vomiting, diarrhea and/or constipation, weight changes, sexual side effects including loss of libido, increased suicidal thoughts/behavior s in children and young adults, and serotonin syndrome. Discussed and educated pt regarding benzodiazepines are generally not intended for prolonged use and that use can cause tolerance, dependence, depression, and associated memory issues including dementias (this list is not exhaustive). Benzodiazepine use is generally not recommended concurrently with pain medications and/or other controlled substances due to increased risks of profound sedation, respiratory depression, coma, and even . They are not to be used with any alcohol, as this combination can also be lethal. Patient was provided caution F41.1: Generalized anxiety disorder alprazolam 2 mg tablet - Take 1 tablet(s) every day by oral route as directed for 30 days. Qty: (30) tablet Refills: 0 Pharmacy: [facility] clonazepam 1 mg tablet - Take 1 tablet(s) twice a day by oral route as directed for 30 days. Qty: (60) tablet Refills: 0 Pharmacy: [facility] sertraline 50 mg tablet - Take 1 tablet(s) every day by oral route in the morning for 14 days. Qty: (30 tablet Refills: 2 Pharmacy: [place] [id number] Note to Pharmacy: total 75 mg sertraline 25 mg tablet - Take 1 tablet(s) every day by oral route in the morning for 30 days. Qty: (30) tablet Refills: 2 Pharmacy: [place] [id number] Note to Pharmacy: total 75 mg 2. Panic disorder -obtain labs PCP OBTAIN RECORDS Dr. Kurtz office refer to therapy Zoloft Clonazepam 1 mg twice a day Xanax 2 mg daily F41.0: Panic disorder [episodic paroxysmal anxiety] 3. Mild recurrent major depression 4. Long-term drug therapy 03/21/2024 Major depressive disorder, recurrent, mild (ICD-10 - F33.0) Preventing Depression From Coming Back: Care Instructions material was published, Learning About Depression material was published, Depression Treatment: Care Instructions material was published 1. Generalized anxiety disorder - (hx paxil 20 mg BID - r/t agitated and trouble sleeping) discuss and educated on Zoloft - will increase Zoloft 100 mg daily for depression and anxiety Clonazepam 1 mg twice a day- am and bedtime- plan to change to three times a day in near future when off Xanax- IF NEEDED TO INCREASE Clonazepam Xanax 1.5 mg daily in afternoon- for panic attacks - discuss slow decrease and plan to be on 1 benzo no early refills on [facility] in [facility] educated on all rx and not to take Xanax and Clonazepam together patient would like tele visit related to anxiety/panic educated on all medications, benefits, side effects and risk, and educated on depression, anxiety, and mood d/o and educated on compliance of medications, metabolic and movement d/o education appointment is, continue therapy discussion with patient about course of treatment and patient instructions. education on serotonin syndrome SSRI/SNRI side effects discussed including but not limited to, gastric upset, nausea, vomiting, diarrhea and/or constipation, weight changes, sexual side effects including loss of libido, increased suicidal thoughts/behavior s in children and young adults, and serotonin syndrome. Discussed and educated pt regarding benzodiazepines are generally not intended for prolonged use and that use can cause tolerance, dependence, depression, and associated memory issues including dementias (this list is not exhaustive). Benzodiazepine use is generally not recommended concurrently with pain medications and/or other controlled substances due to increased risks of profound sedation, respiratory depression, coma, and even . They are not to be used with any alcohol, as this combination can also be lethal. Patient was provided caution 2. Panic disorder -obtain labs PCP OBTAIN RECORDS Dr. Kurtz office refer to therapy Zoloft 100 mg daily Clonazepam 1 mg twice a day Xanax 1.5 mg daily plan to taper off 3. Mild recurrent major depression 4. Long-term drug therapy 10/10/2024 MDD (major depressive disorder), recurrent episode, moderate (ICD-10 - F33.1) 1. Generalized anxiety disorder - (hx paxil 20 mg BID - r/t agitated and trouble sleeping) discuss and educated on all rx- educated and discuss changes to rx to help depression, anxiety, panic Increase Zoloft 100 mg daily for 2 weeks then increase Zoloft 150 mg daily Increase Clonazepam 1 mg three a day- refill discuss decrease Xanax 0.5 mg daily once a day for next 2 week then stop continue therapy and work on coping skills, anxiety, worries, panic, depression, no early refills on control substance local pharmacy in [facility] educated on all rx and not to take Xanax and Clonazepam together patient would like tele visit related if anxiety/panic educated on all medications, benefits, side effects and risk, and educated on depression, anxiety, and mood d/o and educated on compliance of medications, metabolic and movement d/o education appointment is, continue therapy discussion with patient about course of treatment and patient instructions. education on serotonin syndrome SSRI/SNRI side effects discussed including but not limited to, gastric upset, nausea, vomiting, diarrhea and/or constipation, weight changes, sexual side effects including loss of libido, increased suicidal thoughts/behavior s in children and young adults, and serotonin syndrome. Discussed and educated pt regarding benzodiazepines are generally not intended for prolonged use and that use can cause tolerance, dependence, depression, and associated memory issues including dementias (this list is not exhaustive). Benzodiazepine use is generally not recommended concurrently with pain medications and/or other controlled substances due to increased risks of profound sedation, respiratory depression, coma, and even . They are not to be used with any alcohol, as this combination can also be lethal. Patient was provided caution 2. Panic disorder -obtain labs PCP OBTAIN RECORDS Dr. Kurtz office refer to therapy- APRIL Patient will see if afford- patient will schedule appt APRIL Clonazepam 1 mg three a day Xanax 0.5 mg once a day for 2 weeks then stop- 3. recurrent major depression- discuss and educated on medication options ABILIFY 5 mg bedtime- educated on all rx, benefits, side effects and risk Second generation antipsychotics (SGAs) have metabolic syndrome issues with weight gain, increase in prolactin, increased waist circumference, increased lipids, and increased glucose. Thus routine monitoring of weight, metabolic labs, etc. is indicated. A general rank ordering of antipsychotics that have the greatest to the least risk of metabolic effects is olanzapine, quetiapine, risperidone, ziprasidone, and aripiprazole. However, weight gain can occur with all of these drugs and considerable variability exists among patients receiving the same drug regarding the risk of metabolic effects. Anti-psychotic agents not only increase the risk of metabolic disorder, they also increase the risk of CVA, akathisia, and movement disorders including EPS or tardive dyskinesia (more common with first generation antipsychotics) and more. 4. Insomnia sleep hygiene discuss sleep study options Long-term drug therapy 10/31/2024 Encounter for screening for depression (ICD-10 - Z13.31) 1. Generalized anxiety disorder - (hx paxil 20 mg BID - r/t agitated and trouble sleeping) discuss and educated on all rx- educated and discuss changes to rx to help depression, anxiety, panic Zoloft 150 mg daily discuss and educated on not having 2 benzo and finding time for self and , and educated on ways to reduce stress and relaxation. Clonazepam 1 mg three a day- discuss and educated on Buspar, Propanolol, Clonidine for anxiety - patient reported hx Buspar did not help Add Propanolol 10 mg daily as needed for anxiety and panic monitor B/P Patient stopped Vistaril - fatigue continue therapy and work on coping skills, anxiety, worries, panic, depression, no early refills on control substance local pharmacy in [place] [facility] educated on all medications, benefits, side effects and risk, and educated on depression, anxiety, and mood d/o and educated on compliance of medications, metabolic and movement d/o education appointment is, continue therapy discussion with patient about course of treatment and patient instructions. education on serotonin syndrome SSRI/SNRI side effects discussed including but not limited to, gastric upset, nausea, vomiting, diarrhea and/or constipation, weight changes, sexual side effects including loss of libido, increased suicidal thoughts/behavior s in children and young adults, and serotonin syndrome. Discussed and educated pt regarding benzodiazepines are generally not intended for prolonged use and that use can cause tolerance, dependence, depression, and associated memory issues including dementias (this list is not exhaustive). Benzodiazepine use is generally not recommended concurrently with pain medications and/or other controlled substances due to increased risks of profound sedation, respiratory depression, coma, and even . They are not to be used with any alcohol, as this combination can also be lethal. Patient was provided caution 2. Panic disorder -obtain labs PCP OBTAIN RECORDS Dr. Kurtz office refer to therapy- coping skills Clonazepam 1 mg three a day 3. recurrent major depression- discuss and educated on medication options ABILIFY 5 mg bedtime- educated on all rx, benefits, side effects and risk Second generation antipsychotics (SGAs) have metabolic syndrome issues with weight gain, increase in prolactin, increased waist circumference, increased lipids, and increased glucose. Thus routine monitoring of weight, metabolic labs, etc. is indicated. A general rank ordering of antipsychotics that have the greatest to the least risk of metabolic effects is olanzapine, quetiapine, risperidone, ziprasidone, and aripiprazole. However, weight gain can occur with all of these drugs and considerable variability exists among patients receiving the same drug regarding the risk of metabolic effects. Anti-psychotic agents not only increase the risk of metabolic disorder, they also increase the risk of CVA, akathisia, and movement disorders including EPS or tardive dyskinesia (more common with first generation antipsychotics) and more. 4. Insomnia sleep hygiene discuss sleep study options Long-term drug therapy 11/17/2024 Generalized anxiety disorder (ICD-10 - F41.1) Learning About Generalized Anxiety Disorder material was published, Generalized Anxiety Disorder: Care Instructions material was published, Learning About Anxiety Disorders material was published, Generalized Anxiety Disorder: Care Instructions material was published, Learning About Generalized Anxiety Disorder material was published, Learning About Anxiety Disorders material was published 1. Generalized anxiety disorder - (hx paxil 20 mg BID - r/t agitated and trouble sleeping) discuss and educated on all rx- educated and discuss changes to rx to help depression, anxiety, panic Zoloft 150 mg daily discuss and educated on not having 2 benzo and finding time for self and , and educated on ways to reduce stress and relaxation. discuss and educated on Buspar, Propanolol, Clonidine for anxiety - patient reported hx Buspar did not help continue therapy and work on coping skills, anxiety, worries, panic, depression, no early refills on control substance local pharmacy in [facility] ud educated on all medications, benefits, side effects and risk, and educated on depression, anxiety, and mood d/o and educated on compliance of medications, metabolic and movement d/o education appointment is, continue therapy discussion with patient about course of treatment and patient instructions. education on serotonin syndrome SSRI/SNRI side effects discussed including but not limited to, gastric upset, nausea, vomiting, diarrhea and/or constipation, weight changes, sexual side effects including loss of libido, increased suicidal thoughts/behavior s in children and young adults, and serotonin syndrome. Discussed and educated pt regarding benzodiazepines are generally not intended for prolonged use and that use can cause tolerance, dependence, depression, and associated memory issues including dementias (this list is not exhaustive). Benzodiazepine use is generally not recommended concurrently with pain medications and/or other controlled substances due to increased risks of profound sedation, respiratory depression, coma, and even . They are not to be used with any alcohol, as this combination can also be lethal. Patient was provided caution 2. Panic disorder -obtain labs PCP OBTAIN RECORDS Dr. Kurtz office refer to therapy- coping skills D/C Clonazepam 1 mg three a day- patient will take rx to pharmacy to discard rx has at home Add Xanax 1 mg three times a day 3. recurrent major depression- discuss and educated on medication options Add Seroquel 50 mg at bedtime for 1 week then increase to Seroquel 100 mg bedtime - For depression, anxiety and agitation help sleep D/C ABILIFY 5 mg bedtime- educated on all rx, benefits, side effects and risk Second generation antipsychotics (SGAs) have metabolic syndrome issues with weight gain, increase in prolactin, increased waist circumference, increased lipids, and increased glucose. Thus routine monitoring of weight, metabolic labs, etc. is indicated. A general rank ordering of antipsychotics that have the greatest to the least risk of metabolic effects is olanzapine, quetiapine, risperidone, ziprasidone, and aripiprazole. However, weight gain can occur with all of these drugs and considerable variability exists among patients receiving the same drug regarding the risk of metabolic effects. Anti-psychotic agents not only increase the risk of metabolic disorder, they also increase the risk of CVA, akathisia, and movement disorders including EPS or tardive dyskinesia (more common with first generation antipsychotics) and more. 4. Insomnia sleep hygiene discuss sleep study options Long-term drug therapy 11/17/2024 MDD (major depressive disorder), recurrent episode, moderate (ICD-10 - F33.1) 1. Generalized anxiety disorder - (hx paxil 20 mg BID - r/t agitated and trouble sleeping) discuss and educated on all rx- educated and discuss changes to rx to help depression, anxiety, panic Zoloft 150 mg daily discuss and educated on not having 2 benzo and finding time for self and , and educated on ways to reduce stress and relaxation. discuss and educated on Buspar, Propanolol, Clonidine for anxiety - patient reported hx Buspar did not help continue therapy and work on coping skills, anxiety, worries, panic, depression, no early refills on control substance local pharmacy in [facility] educated on all medications, benefits, side effects and risk, and educated on depression, anxiety, and mood d/o and educated on compliance of medications, metabolic and movement d/o education appointment is, continue therapy discussion with patient about course of treatment and patient instructions. education on serotonin syndrome SSRI/SNRI side effects discussed including but not limited to, gastric upset, nausea, vomiting, diarrhea and/or constipation, weight changes, sexual side effects including loss of libido, increased suicidal thoughts/behavior s in children and young adults, and serotonin syndrome. Discussed and educated pt regarding benzodiazepines are generally not intended for prolonged use and that use can cause tolerance, dependence, depression, and associated memory issues including dementias (this list is not exhaustive). Benzodiazepine use is generally not recommended concurrently with pain medications and/or other controlled substances due to increased risks of profound sedation, respiratory depression, coma, and even . They are not to be used with any alcohol, as this combination can also be lethal. Patient was provided caution 2. Panic disorder -obtain labs PCP OBTAIN RECORDS Dr. Kurtz office refer to therapy- coping skills D/C Clonazepam 1 mg three a day- patient will take rx to pharmacy to discard rx has at home Add Xanax 1 mg three times a day 3. recurrent major depression- discuss and educated on medication options Add Seroquel 50 mg at bedtime for 1 week then increase to Seroquel 100 mg bedtime - For depression, anxiety and agitation help sleep D/C ABILIFY 5 mg bedtime- educated on all rx, benefits, side effects and risk Second generation antipsychotics (SGAs) have metabolic syndrome issues with weight gain, increase in prolactin, increased waist circumference, increased lipids, and increased glucose. Thus routine monitoring of weight, metabolic labs, etc. is indicated. A general rank ordering of antipsychotics that have the greatest to the least risk of metabolic effects is olanzapine, quetiapine, risperidone, ziprasidone, and aripiprazole. However, weight gain can occur with all of these drugs and considerable variability exists among patients receiving the same drug regarding the risk of metabolic effects. Anti-psychotic agents not only increase the risk of metabolic disorder, they also increase the risk of CVA, akathisia, and movement disorders including EPS or tardive dyskinesia (more common with first generation antipsychotics) and more. 4. Insomnia sleep hygiene discuss sleep study options Long-term drug therapy 12/22/2024 Generalized anxiety disorder (ICD-10 - F41.1) Learning About Generalized Anxiety Disorder material was published, Generalized Anxiety Disorder: Care Instructions material was published, Learning About Anxiety Disorders material was published, Generalized Anxiety Disorder: Care Instructions material was published, Learning About Generalized Anxiety Disorder material was published, Learning About Anxiety Disorders material was published 1. Generalized anxiety disorder - (hx paxil 20 mg BID - r/t agitated and trouble sleeping) discuss and educated on all rx- educated and discuss changes to rx to help depression, anxiety, panic Zoloft 150 mg daily discuss and educated on not having 2 benzo and finding time for self and , and educated on ways to reduce stress and relaxation. discuss and educated on Buspar, Propanolol, Clonidine for anxiety - patient reported hx Buspar did not help continue therapy and work on coping skills, anxiety, worries, panic, depression, no early refills on control substance local pharmacy in [facility] uds educated on all medications, benefits, side effects and risk, and educated on depression, anxiety, and mood d/o and educated on compliance of medications, metabolic and movement d/o education appointment is, continue therapy discussion with patient about course of treatment and patient instructions. education on serotonin syndrome SSRI/SNRI side effects discussed including but not limited to, gastric upset, nausea, vomiting, diarrhea and/or constipation, weight changes, sexual side effects including loss of libido, increased suicidal thoughts/behavior s in children and young adults, and serotonin syndrome. Discussed and educated pt regarding benzodiazepines are generally not intended for prolonged use and that use can cause tolerance, dependence, depression, and associated memory issues including dementias (this list is not exhaustive). Benzodiazepine use is generally not recommended concurrently with pain medications and/or other controlled substances due to increased risks of profound sedation, respiratory depression, coma, and even . They are not to be used with any alcohol, as this combination can also be lethal. Patient was provided caution 2. Panic disorder - labs PCP refer to therapy- coping skills Xanax 1 mg three times a day 3. major depression- discuss and educated on medication options Seroquel 100 mg bedtime - For depression, anxiety and agitation help sleep educated on all rx, benefits, side effects and risk Second generation antipsychotics (SGAs) have metabolic syndrome issues with weight gain, increase in prolactin, increased waist circumference, increased lipids, and increased glucose. Thus routine monitoring of weight, metabolic labs, etc. is indicated. A general rank ordering of antipsychotics that have the greatest to the least risk of metabolic effects is olanzapine, quetiapine, risperidone, ziprasidone, and aripiprazole. However, weight gain can occur with all of these drugs and considerable variability exists among patients receiving the same drug regarding the risk of metabolic effects. Anti-psychotic agents not only increase the risk of metabolic disorder, they also increase the risk of CVA, akathisia, and movement disorders including EPS or tardive dyskinesia (more common with first generation antipsychotics) and more. 4. Insomnia sleep hygiene discuss sleep study options Long-term drug therapy 12/22/2024 MDD (major depressive disorder), recurrent episode, moderate (ICD-10 - F33.1) 1. Generalized anxiety disorder - (hx paxil 20 mg BID - r/t agitated and trouble sleeping) discuss and educated on all rx- educated and discuss changes to rx to help depression, anxiety, panic Zoloft 150 mg daily discuss and educated on not having 2 benzo and finding time for self and , and educated on ways to reduce stress and relaxation. discuss and educated on Buspar, Propanolol, Clonidine for anxiety - patient reported hx Buspar did not help continue therapy and work on coping skills, anxiety, worries, panic, depression, no early refills on control substance local pharmacy in [facility] ud educated on all medications, benefits, side effects and risk, and educated on depression, anxiety, and mood d/o and educated on compliance of medications, metabolic and movement d/o education appointment is, continue therapy discussion with patient about course of treatment and patient instructions. education on serotonin syndrome SSRI/SNRI side effects discussed including but not limited to, gastric upset, nausea, vomiting, diarrhea and/or constipation, weight changes, sexual side effects including loss of libido, increased suicidal thoughts/behavior s in children and young adults, and serotonin syndrome. Discussed and educated pt regarding benzodiazepines are generally not intended for prolonged use and that use can cause tolerance, dependence, depression, and associated memory issues including dementias (this list is not exhaustive). Benzodiazepine use is generally not recommended concurrently with pain medications and/or other controlled substances due to increased risks of profound sedation, respiratory depression, coma, and even . They are not to be used with any alcohol, as this combination can also be lethal. Patient was provided caution 2. Panic disorder - labs PCP refer to therapy- coping skills Xanax 1 mg three times a day 3. major depression- discuss and educated on medication options Seroquel 100 mg bedtime - For depression, anxiety and agitation help sleep educated on all rx, benefits, side effects and risk Second generation antipsychotics (SGAs) have metabolic syndrome issues with weight gain, increase in prolactin, increased waist circumference, increased lipids, and increased glucose. Thus routine monitoring of weight, metabolic labs, etc. is indicated. A general rank ordering of antipsychotics that have the greatest to the least risk of metabolic effects is olanzapine, quetiapine, risperidone, ziprasidone, and aripiprazole. However, weight gain can occur with all of these drugs and considerable variability exists among patients receiving the same drug regarding the risk of metabolic effects. Anti-psychotic agents not only increase the risk of metabolic disorder, they also increase the risk of CVA, akathisia, and movement disorders including EPS or tardive dyskinesia (more common with first generation antipsychotics) and more. 4. Insomnia sleep hygiene discuss sleep study options Long-term drug therapy 12/22/2024 Nicotine use (ICD-10 - Z72.0) 1. Generalized anxiety disorder - (hx paxil 20 mg BID - r/t agitated and trouble sleeping) discuss and educated on all rx- educated and discuss changes to rx to help depression, anxiety, panic Zoloft 150 mg daily discuss and educated on not having 2 benzo and finding time for self and , and educated on ways to reduce stress and relaxation. discuss and educated on Buspar, Propanolol, Clonidine for anxiety - patient reported hx Buspar did not help continue therapy and work on coping skills, anxiety, worries, panic, depression, no early refills on control substance local pharmacy in [facility] educated on all medications, benefits, side effects and risk, and educated on depression, anxiety, and mood d/o and educated on compliance of medications, metabolic and movement d/o education appointment is, continue therapy discussion with patient about course of treatment and patient instructions. education on serotonin syndrome SSRI/SNRI side effects discussed including but not limited to, gastric upset, nausea, vomiting, diarrhea and/or constipation, weight changes, sexual side effects including loss of libido, increased suicidal thoughts/behavior s in children and young adults, and serotonin syndrome. Discussed and educated pt regarding benzodiazepines are generally not intended for prolonged use and that use can cause tolerance, dependence, depression, and associated memory issues including dementias (this list is not exhaustive). Benzodiazepine use is generally not recommended concurrently with pain medications and/or other controlled substances due to increased risks of profound sedation, respiratory depression, coma, and even . They are not to be used with any alcohol, as this combination can also be lethal. Patient was provided caution 2. Panic disorder - labs PCP refer to therapy- coping skills Xanax 1 mg three times a day 3. major depression- discuss and educated on medication options Seroquel 100 mg bedtime - For depression, anxiety and agitation help sleep educated on all rx, benefits, side effects and risk Second generation antipsychotics (SGAs) have metabolic syndrome issues with weight gain, increase in prolactin, increased waist circumference, increased lipids, and increased glucose. Thus routine monitoring of weight, metabolic labs, etc. is indicated. A general rank ordering of antipsychotics that have the greatest to the least risk of metabolic effects is olanzapine, quetiapine, risperidone, ziprasidone, and aripiprazole. However, weight gain can occur with all of these drugs and considerable variability exists among patients receiving the same drug regarding the risk of metabolic effects. Anti-psychotic agents not only increase the risk of metabolic disorder, they also increase the risk of CVA, akathisia, and movement disorders including EPS or tardive dyskinesia (more common with first generation antipsychotics) and more. 4. Insomnia sleep hygiene discuss sleep study options Long-term drug therapy 11/17/2024 Encounter for screening for cardiovascular disorders (ICD-10 - Z13.6) 1. Generalized anxiety disorder - (hx paxil 20 mg BID - r/t agitated and trouble sleeping) discuss and educated on all rx- educated and discuss changes to rx to help depression, anxiety, panic Zoloft 150 mg daily discuss and educated on not having 2 benzo and finding time for self and , and educated on ways to reduce stress and relaxation. discuss and educated on Buspar, Propanolol, Clonidine for anxiety - patient reported hx Buspar did not help continue therapy and work on coping skills, anxiety, worries, panic, depression, no early refills on control substance local pharmacy in [facility] educated on all medications, benefits, side effects and risk, and educated on depression, anxiety, and mood d/o and educated on compliance of medications, metabolic and movement d/o education appointment is, continue therapy discussion with patient about course of treatment and patient instructions. education on serotonin syndrome SSRI/SNRI side effects discussed including but not limited to, gastric upset, nausea, vomiting, diarrhea and/or constipation, weight changes, sexual side effects including loss of libido, increased suicidal thoughts/behavior s in children and young adults, and serotonin syndrome. Discussed and educated pt regarding benzodiazepines are generally not intended for prolonged use and that use can cause tolerance, dependence, depression, and associated memory issues including dementias (this list is not exhaustive). Benzodiazepine use is generally not recommended concurrently with pain medications and/or other controlled substances due to increased risks of profound sedation, respiratory depression, coma, and even . They are not to be used with any alcohol, as this combination can also be lethal. Patient was provided caution 2. Panic disorder -obtain labs PCP OBTAIN RECORDS Dr. Kurtz office refer to therapy- coping skills D/C Clonazepam 1 mg three a day- patient will take rx to pharmacy to discard rx has at home Add Xanax 1 mg three times a day 3. recurrent major depression- discuss and educated on medication options Add Seroquel 50 mg at bedtime for 1 week then increase to Seroquel 100 mg bedtime - For depression, anxiety and agitation help sleep D/C ABILIFY 5 mg bedtime- educated on all rx, benefits, side effects and risk Second generation antipsychotics (SGAs) have metabolic syndrome issues with weight gain, increase in prolactin, increased waist circumference, increased lipids, and increased glucose. Thus routine monitoring of weight, metabolic labs, etc. is indicated. A general rank ordering of antipsychotics that have the greatest to the least risk of metabolic effects is olanzapine, quetiapine, risperidone, ziprasidone, and aripiprazole. However, weight gain can occur with all of these drugs and considerable variability exists among patients receiving the same drug regarding the risk of metabolic effects. Anti-psychotic agents not only increase the risk of metabolic disorder, they also increase the risk of CVA, akathisia, and movement disorders including EPS or tardive dyskinesia (more common with first generation antipsychotics) and more. 4. Insomnia sleep hygiene discuss sleep study options Long-term drug therapy 10/31/2024 Nicotine use (ICD-10 - Z72.0) 1. Generalized anxiety disorder - (hx paxil 20 mg BID - r/t agitated and trouble sleeping) discuss and educated on all rx- educated and discuss changes to rx to help depression, anxiety, panic Zoloft 150 mg daily discuss and educated on not having 2 benzo and finding time for self and , and educated on ways to reduce stress and relaxation. Clonazepam 1 mg three a day- discuss and educated on Buspar, Propanolol, Clonidine for anxiety - patient reported hx Buspar did not help Add Propanolol 10 mg daily as needed for anxiety and panic monitor B/P Patient stopped Vistaril - fatigue continue therapy and work on coping skills, anxiety, worries, panic, depression, no early refills on control substance local pharmacy in [facility] uds educated on all medications, benefits, side effects and risk, and educated on depression, anxiety, and mood d/o and educated on compliance of medications, metabolic and movement d/o education appointment is, continue therapy discussion with patient about course of treatment and patient instructions. education on serotonin syndrome SSRI/SNRI side effects discussed including but not limited to, gastric upset, nausea, vomiting, diarrhea and/or constipation, weight changes, sexual side effects including loss of libido, increased suicidal thoughts/behavior s in children and young adults, and serotonin syndrome. Discussed and educated pt regarding benzodiazepines are generally not intended for prolonged use and that use can cause tolerance, dependence, depression, and associated memory issues including dementias (this list is not exhaustive). Benzodiazepine use is generally not recommended concurrently with pain medications and/or other controlled substances due to increased risks of profound sedation, respiratory depression, coma, and even . They are not to be used with any alcohol, as this combination can also be lethal. Patient was provided caution 2. Panic disorder -obtain labs PCP OBTAIN RECORDS Dr. Kurtz office refer to therapy- coping skills Clonazepam 1 mg three a day 3. recurrent major depression- discuss and educated on medication options ABILIFY 5 mg bedtime- educated on all rx, benefits, side effects and risk Second generation antipsychotics (SGAs) have metabolic syndrome issues with weight gain, increase in prolactin, increased waist circumference, increased lipids, and increased glucose. Thus routine monitoring of weight, metabolic labs, etc. is indicated. A general rank ordering of antipsychotics that have the greatest to the least risk of metabolic effects is olanzapine, quetiapine, risperidone, ziprasidone, and aripiprazole. However, weight gain can occur with all of these drugs and considerable variability exists among patients receiving the same drug regarding the risk of metabolic effects. Anti-psychotic agents not only increase the risk of metabolic disorder, they also increase the risk of CVA, akathisia, and movement disorders including EPS or tardive dyskinesia (more common with first generation antipsychotics) and more. 4. Insomnia sleep hygiene discuss sleep study options Long-term drug therapy 07/18/2024 Panic disorder [episodic paroxysmal anxiety] without agoraphobia (ICD-10 - F41.0) Panic Attacks: Care Instructions material was published, Panic Attacks: Care Instructions material was published 1. Generalized anxiety disorder - (hx paxil 20 mg BID - r/t agitated and trouble sleeping) discuss and educated on Zoloft 75 mg daily Clonazepam 1 mg twice a day- am and bedtime- refill plan to change to three times a day in near future when off Xanax- IF NEEDED TO INCREASE Clonazepam discuss decrease Xanax 0.5 mg daily twice a day and not at same time as Clonazepam- for panic attacks - discuss slow decrease and plan to be on 1 benzo- discuss GDR- no early refills on control substance local pharmacy in [facility] uds educated on all rx and not to take Xanax and Clonazepam together patient would like tele visit related if anxiety/panic educated on all medications, benefits, side effects and risk, and educated on depression, anxiety, and mood d/o and educated on compliance of medications, metabolic and movement d/o education appointment is, continue therapy discussion with patient about course of treatment and patient instructions. education on serotonin syndrome SSRI/SNRI side effects discussed including but not limited to, gastric upset, nausea, vomiting, diarrhea and/or constipation, weight changes, sexual side effects including loss of libido, increased suicidal thoughts/behavior s in children and young adults, and serotonin syndrome. Discussed and educated pt regarding benzodiazepines are generally not intended for prolonged use and that use can cause tolerance, dependence, depression, and associated memory issues including dementias (this list is not exhaustive). Benzodiazepine use is generally not recommended concurrently with pain medications and/or other controlled substances due to increased risks of profound sedation, respiratory depression, coma, and even . They are not to be used with any alcohol, as this combination can also be lethal. Patient was provided caution 2. Panic disorder -obtain labs PCP OBTAIN RECORDS Dr. Kurtz office refer to therapy- APRIL Patient will see if afford- patient will schedule appt APRIL Zoloft 75 mg daily 90 days Clonazepam 1 mg twice a day Xanax 0.5 mg twice a day plan to taper off- 3. recurrent major depression- discuss and educated on medication options ABILIFY 5 mg bedtime- educated on all rx, benefits, side effects and risk Second generation antipsychotics (SGAs) have metabolic syndrome issues with weight gain, increase in prolactin, increased waist circumference, increased lipids, and increased glucose. Thus routine monitoring of weight, metabolic labs, etc. is indicated. A general rank ordering of antipsychotics that have the greatest to the least risk of metabolic effects is olanzapine, quetiapine, risperidone, ziprasidone, and aripiprazole. However, weight gain can occur with all of these drugs and considerable variability exists among patients receiving the same drug regarding the risk of metabolic effects. Anti-psychotic agents not only increase the risk of metabolic disorder, they also increase the risk of CVA, akathisia, and movement disorders including EPS or tardive dyskinesia (more common with first generation antipsychotics) and more. 4. Long-term drug therapy 07/18/2024 MDD (major depressive disorder), severe (ICD-10 - F32.2) Learning About Depression Screening material was published, Learning About Depression material was published, Learning About Mood Disorders material was published, Learning About How to Get Help During a Mental Health Crisis material was published, Depression Treatment: Care Instructions material was published 1. Generalized anxiety disorder - (hx paxil 20 mg BID - r/t agitated and trouble sleeping) discuss and educated on Zoloft 75 mg daily Clonazepam 1 mg twice a day- am and bedtime- refill plan to change to three times a day in near future when off Xanax- IF NEEDED TO INCREASE Clonazepam discuss decrease Xanax 0.5 mg daily twice a day and not at same time as Clonazepam- for panic attacks - discuss slow decrease and plan to be on 1 benzo- discuss GDR- no early refills on control substance local pharmacy in [facility] educated on all rx and not to take Xanax and Clonazepam together patient would like tele visit related if anxiety/panic educated on all medications, benefits, side effects and risk, and educated on depression, anxiety, and mood d/o and educated on compliance of medications, metabolic and movement d/o education appointment is, continue therapy discussion with patient about course of treatment and patient instructions. education on serotonin syndrome SSRI/SNRI side effects discussed including but not limited to, gastric upset, nausea, vomiting, diarrhea and/or constipation, weight changes, sexual side effects including loss of libido, increased suicidal thoughts/behavior s in children and young adults, and serotonin syndrome. Discussed and educated pt regarding benzodiazepines are generally not intended for prolonged use and that use can cause tolerance, dependence, depression, and associated memory issues including dementias (this list is not exhaustive). Benzodiazepine use is generally not recommended concurrently with pain medications and/or other controlled substances due to increased risks of profound sedation, respiratory depression, coma, and even . They are not to be used with any alcohol, as this combination can also be lethal. Patient was provided caution 2. Panic disorder -obtain labs PCP OBTAIN RECORDS Dr. Kurtz office refer to therapy- APRIL Patient will see if afford- patient will schedule appt APRIL Zoloft 75 mg daily 90 days Clonazepam 1 mg twice a day Xanax 0.5 mg twice a day plan to taper off- 3. recurrent major depression- discuss and educated on medication options ABILIFY 5 mg bedtime- educated on all rx, benefits, side effects and risk Second generation antipsychotics (SGAs) have metabolic syndrome issues with weight gain, increase in prolactin, increased waist circumference, increased lipids, and increased glucose. Thus routine monitoring of weight, metabolic labs, etc. is indicated. A general rank ordering of antipsychotics that have the greatest to the least risk of metabolic effects is olanzapine, quetiapine, risperidone, ziprasidone, and aripiprazole. However, weight gain can occur with all of these drugs and considerable variability exists among patients receiving the same drug regarding the risk of metabolic effects. Anti-psychotic agents not only increase the risk of metabolic disorder, they also increase the risk of CVA, akathisia, and movement disorders including EPS or tardive dyskinesia (more common with first generation antipsychotics) and more. 4. Long-term drug therapy 05/20/2024 MDD (major depressive disorder), severe (ICD-10 - F32.2) Learning About Depression Screening material was published, Learning About Depression material was published, Learning About Mood Disorders material was published, Learning About How to Get Help During a Mental Health Crisis material was published, Depression Treatment: Care Instructions material was published 1. Generalized anxiety disorder - (hx paxil 20 mg BID - r/t agitated and trouble sleeping) discuss and educated on Zoloft 75 mg daily Clonazepam 1 mg twice a day- am and bedtime- refill plan to change to three times a day in near future when off Xanax- IF NEEDED TO INCREASE Clonazepam Xanax 1.5 mg daily in afternoon- for panic attacks - discuss slow decrease and plan to be on 1 benzo- discuss GDR- no early refills on control substancecal pharmacy in [facility] educated on all rx and not to take Xanax and Clonazepam together patient would like tele visit related to anxiety/panic educated on all medications, benefits, side effects and risk, and educated on depression, anxiety, and mood d/o and educated on compliance of medications, metabolic and movement d/o education appointment is, continue therapy discussion with patient about course of treatment and patient instructions. education on serotonin syndrome SSRI/SNRI side effects discussed including but not limited to, gastric upset, nausea, vomiting, diarrhea and/or constipation, weight changes, sexual side effects including loss of libido, increased suicidal thoughts/behavior s in children and young adults, and serotonin syndrome. Discussed and educated pt regarding benzodiazepines are generally not intended for prolonged use and that use can cause tolerance, dependence, depression, and associated memory issues including dementias (this list is not exhaustive). Benzodiazepine use is generally not recommended concurrently with pain medications and/or other controlled substances due to increased risks of profound sedation, respiratory depression, coma, and even . They are not to be used with any alcohol, as this combination can also be lethal. Patient was provided caution 2. Panic disorder -obtain labs PCP OBTAIN RECORDS Dr. Kurtz office refer to therapy- APRIL Patient will see if afford- patient will schedule appt APRIL Zoloft 75 mg daily 90 days sent 05/20/24 Clonazepam 1 mg twice a day sent 05/20/24 with 1 refill Xanax 1.5 mg daily plan to taper off- sent 05/20/24 with 1 refill 3. recurrent major depression- discuss and educated on medication options ABILIFY 5 mg bedtime- sent 90 days 05/20/24 educated on all rx, benefits, side effects and risk Second generation antipsychotics (SGAs) have metabolic syndrome issues with weight gain, increase in prolactin, increased waist circumference, increased lipids, and increased glucose. Thus routine monitoring of weight, metabolic labs, etc. is indicated. A general rank ordering of antipsychotics that have the greatest to the least risk of metabolic effects is olanzapine, quetiapine, risperidone, ziprasidone, and aripiprazole. However, weight gain can occur with all of these drugs and considerable variability exists among patients receiving the same drug regarding the risk of metabolic effects. Anti-psychotic agents not only increase the risk of metabolic disorder, they also increase the risk of CVA, akathisia, and movement disorders including EPS or tardive dyskinesia (more common with first generation antipsychotics) and more. 4. Long-term drug therapy 10/10/2024 Panic disorder [episodic paroxysmal anxiety] without agoraphobia (ICD-10 - F41.0) Panic Attacks: Care Instructions material was published, Panic Attacks: Care Instructions material was published 1. Generalized anxiety disorder - (hx paxil 20 mg BID - r/t agitated and trouble sleeping) discuss and educated on all rx- educated and discuss changes to rx to help depression, anxiety, panic Increase Zoloft 100 mg daily for 2 weeks then increase Zoloft 150 mg daily Increase Clonazepam 1 mg three a day- refill discuss decrease Xanax 0.5 mg daily once a day for next 2 week then stop continue therapy and work on coping skills, anxiety, worries, panic, depression, no early refills on control substance local pharmacy in [facility] educated on all rx and not to take Xanax and Clonazepam together patient would like tele visit related if anxiety/panic educated on all medications, benefits, side effects and risk, and educated on depression, anxiety, and mood d/o and educated on compliance of medications, metabolic and movement d/o education appointment is, continue therapy discussion with patient about course of treatment and patient instructions. education on serotonin syndrome SSRI/SNRI side effects discussed including but not limited to, gastric upset, nausea, vomiting, diarrhea and/or constipation, weight changes, sexual side effects including loss of libido, increased suicidal thoughts/behavior s in children and young adults, and serotonin syndrome. Discussed and educated pt regarding benzodiazepines are generally not intended for prolonged use and that use can cause tolerance, dependence, depression, and associated memory issues including dementias (this list is not exhaustive). Benzodiazepine use is generally not recommended concurrently with pain medications and/or other controlled substances due to increased risks of profound sedation, respiratory depression, coma, and even . They are not to be used with any alcohol, as this combination can also be lethal. Patient was provided caution 2. Panic disorder -obtain labs PCP OBTAIN RECORDS Dr. Kurtz office refer to therapy- APRIL Patient will see if afford- patient will schedule appt APRIL Clonazepam 1 mg three a day Xanax 0.5 mg once a day for 2 weeks then stop- 3. recurrent major depression- discuss and educated on medication options ABILIFY 5 mg bedtime- educated on all rx, benefits, side effects and risk Second generation antipsychotics (SGAs) have metabolic syndrome issues with weight gain, increase in prolactin, increased waist circumference, increased lipids, and increased glucose. Thus routine monitoring of weight, metabolic labs, etc. is indicated. A general rank ordering of antipsychotics that have the greatest to the least risk of metabolic effects is olanzapine, quetiapine, risperidone, ziprasidone, and aripiprazole. However, weight gain can occur with all of these drugs and considerable variability exists among patients receiving the same drug regarding the risk of metabolic effects. Anti-psychotic agents not only increase the risk of metabolic disorder, they also increase the risk of CVA, akathisia, and movement disorders including EPS or tardive dyskinesia (more common with first generation antipsychotics) and more. 4. Insomnia sleep hygiene discuss sleep study options Long-term drug therapy 03/21/2024 Generalized anxiety disorder (ICD-10 - F41.1) Learning About Generalized Anxiety Disorder material was published, Generalized Anxiety Disorder: Care Instructions material was published, Learning About Anxiety Disorders material was published 1. Generalized anxiety disorder - (hx paxil 20 mg BID - r/t agitated and trouble sleeping) discuss and educated on Zoloft - will increase Zoloft 100 mg daily for depression and anxiety Clonazepam 1 mg twice a day- am and bedtime- plan to change to three times a day in near future when off Xanax- IF NEEDED TO INCREASE Clonazepam Xanax 1.5 mg daily in afternoon- for panic attacks - discuss slow decrease and plan to be on 1 benzo no early refills on control substancecal pharmacy in [facility] educated on all rx and not to take Xanax and Clonazepam together patient would like tele visit related to anxiety/panic educated on all medications, benefits, side effects and risk, and educated on depression, anxiety, and mood d/o and educated on compliance of medications, metabolic and movement d/o education appointment is, continue therapy discussion with patient about course of treatment and patient instructions. education on serotonin syndrome SSRI/SNRI side effects discussed including but not limited to, gastric upset, nausea, vomiting, diarrhea and/or constipation, weight changes, sexual side effects including loss of libido, increased suicidal thoughts/behavior s in children and young adults, and serotonin syndrome. Discussed and educated pt regarding benzodiazepines are generally not intended for prolonged use and that use can cause tolerance, dependence, depression, and associated memory issues including dementias (this list is not exhaustive). Benzodiazepine use is generally not recommended concurrently with pain medications and/or other controlled substances due to increased risks of profound sedation, respiratory depression, coma, and even . They are not to be used with any alcohol, as this combination can also be lethal. Patient was provided caution 2. Panic disorder -obtain labs PCP OBTAIN RECORDS Dr. Kurtz office refer to therapy Zoloft 100 mg daily Clonazepam 1 mg twice a day Xanax 1.5 mg daily plan to taper off 3. Mild recurrent major depression 4. Long-term drug therapy 01/26/2024 Panic disorder [episodic paroxysmal anxiety] without agoraphobia (ICD-10 - F41.0) Panic Attacks: Care Instructions material was published 1. Generalized anxiety disorder - (hx paxil 20 mg BID - r/t agitated and trouble sleeping) discuss and educated on Zoloft - will increase Zoloft 75 mg daily for depression and anxiety Clonazepam 1 mg twice a day- am and bedtime- plan to change to three times a day in near future when off Xanax Xanax 2 mg daily in afternoon- for panic attacks - discuss may slow decrease in near future and plan to be on 1 benzo no early refills on control [facility] pharmacy in [facility] educated on all rx and not to take Xanax and Clonazepam together patient would like tele visit related to anxiety/panic educated on all medications, benefits, side effects and risk, and educated on depression, anxiety, and mood d/o and educated on compliance of medications, metabolic and movement d/o education appointment is, continue therapy discussion with patient about course of treatment and patient instructions. education on serotonin syndrome SSRI/SNRI side effects discussed including but not limited to, gastric upset, nausea, vomiting, diarrhea and/or constipation, weight changes, sexual side effects including loss of libido, increased suicidal thoughts/behavior s in children and young adults, and serotonin syndrome. Discussed and educated pt regarding benzodiazepines are generally not intended for prolonged use and that use can cause tolerance, dependence, depression, and associated memory issues including dementias (this list is not exhaustive). Benzodiazepine use is generally not recommended concurrently with pain medications and/or other controlled substances due to increased risks of profound sedation, respiratory depression, coma, and even . They are not to be used with any alcohol, as this combination can also be lethal. Patient was provided caution F41.1: Generalized anxiety disorder alprazolam 2 mg tablet - Take 1 tablet(s) every day by oral route as directed for 30 days. Qty: (30) tablet Refills: 0 Pharmacy: [facility] 107 clonazepam 1 mg tablet - Take 1 tablet(s) twice a day by oral route as directed for 30 days. Qty: (60) tablet Refills: 0 Pharmacy: [facility] 107 sertraline 50 mg tablet - Take 1 tablet(s) every day by oral route in the morning for 14 days. Qty: (30 tablet Refills: 2 Pharmacy: [facility] [id number] Note to Pharmacy: total 75 mg sertraline 25 mg tablet - Take 1 tablet(s) every day by oral route in the morning for 30 days. Qty: (30) tablet Refills: 2 Pharmacy: [facility] 107 Note to Pharmacy: total 75 mg 2. Panic disorder -obtain labs PCP OBTAIN RECORDS Dr. Kurtz office refer to therapy Zoloft Clonazepam 1 mg twice a day Xanax 2 mg daily F41.0: Panic disorder [episodic paroxysmal anxiety] 3. Mild recurrent major depression 4. Long-term drug therapy 05/09/2024 Panic disorder [episodic paroxysmal anxiety] without agoraphobia (ICD-10 - F41.0) Panic Attacks: Care Instructions material was published, Panic Attacks: Care Instructions material was published 1. Generalized anxiety disorder - (hx paxil 20 mg BID - r/t agitated and trouble sleeping) discuss and educated on Zoloft - Zoloft 100 mg daily for depression and anxiety- rx sent 05/09/24 # 90 Clonazepam 1 mg twice a day- am and bedtime- no refill due today scheduled 05/20/24 plan to change to three times a day in near future when off Xanax- IF NEEDED TO INCREASE Clonazepam Xanax 1.5 mg daily in afternoon- for panic attacks - discuss slow decrease and plan to be on 1 benzo- discuss GDR- no refill given 05/09/24 no early refills on control [facility]cal pharmacy in [facility] educated on all rx and not to take Xanax and Clonazepam together patient would like tele visit related to anxiety/panic educated on all medications, benefits, side effects and risk, and educated on depression, anxiety, and mood d/o and educated on compliance of medications, metabolic and movement d/o education appointment is, continue therapy discussion with patient about course of treatment and patient instructions. education on serotonin syndrome SSRI/SNRI side effects discussed including but not limited to, gastric upset, nausea, vomiting, diarrhea and/or constipation, weight changes, sexual side effects including loss of libido, increased suicidal thoughts/behavior s in children and young adults, and serotonin syndrome. Discussed and educated pt regarding benzodiazepines are generally not intended for prolonged use and that use can cause tolerance, dependence, depression, and associated memory issues including dementias (this list is not exhaustive). Benzodiazepine use is generally not recommended concurrently with pain medications and/or other controlled substances due to increased risks of profound sedation, respiratory depression, coma, and even . They are not to be used with any alcohol, as this combination can also be lethal. Patient was provided caution 2. Panic disorder -obtain labs PCP OBTAIN RECORDS Dr. Kurtz office refer to therapy- APRIL Patient will see if afford Zoloft 100 mg daily Clonazepam 1 mg twice a day Xanax 1.5 mg daily plan to taper off 3. recurrent major depression- severe - discuss and educated on medication options Will add ABILIFY 2.5 MG AT BEDTIME for 1 week then increase Abilify 5 mg bedtime educated on all rx, benefits, side effects and risk 4. Long-term drug therapy 04/19/2024 Generalized anxiety disorder (ICD-10 - F41.1) 05/09/2024 Other assisted (current) drug therapy (ICD-10 - Z79.899) Medication Refill: Care Instructions material was published, Medication Refill: Care Instructions material was published 1. Generalized anxiety disorder - (hx paxil 20 mg BID - r/t agitated and trouble sleeping) discuss and educated on Zoloft - Zoloft 100 mg daily for depression and anxiety- rx sent 05/09/24 # 90 Clonazepam 1 mg twice a day- am and bedtime- no refill due today scheduled 05/20/24 plan to change to three times a day in near future when off Xanax- IF NEEDED TO INCREASE Clonazepam Xanax 1.5 mg daily in afternoon- for panic attacks - discuss slow decrease and plan to be on 1 benzo- discuss GDR- no refill given 05/09/24 no early refills on [facility] in [facility] educated on all rx and not to take Xanax and Clonazepam together patient would like tele visit related to anxiety/panic educated on all medications, benefits, side effects and risk, and educated on depression, anxiety, and mood d/o and educated on compliance of medications, metabolic and movement d/o education appointment is, continue therapy discussion with patient about course of treatment and patient instructions. education on serotonin syndrome SSRI/SNRI side effects discussed including but not limited to, gastric upset, nausea, vomiting, diarrhea and/or constipation, weight changes, sexual side effects including loss of libido, increased suicidal thoughts/behavior s in children and young adults, and serotonin syndrome. Discussed and educated pt regarding benzodiazepines are generally not intended for prolonged use and that use can cause tolerance, dependence, depression, and associated memory issues including dementias (this list is not exhaustive). Benzodiazepine use is generally not recommended concurrently with pain medications and/or other controlled substances due to increased risks of profound sedation, respiratory depression, coma, and even . They are not to be used with any alcohol, as this combination can also be lethal. Patient was provided caution 2. Panic disorder -obtain labs PCP OBTAIN RECORDS Dr. Kurtz office refer to therapy- APRIL Patient will see if afford Zoloft 100 mg daily Clonazepam 1 mg twice a day Xanax 1.5 mg daily plan to taper off 3. recurrent major depression- severe - discuss and educated on medication options Will add ABILIFY 2.5 MG AT BEDTIME for 1 week then increase Abilify 5 mg bedtime educated on all rx, benefits, side effects and risk 4. Long-term drug therapy 07/18/2024 Other assisted (current) drug therapy (ICD-10 - Z79.899) Medication Refill: Care Instructions material was published, Medication Refill: Care Instructions material was published 1. Generalized anxiety disorder - (hx paxil 20 mg BID - r/t agitated and trouble sleeping) discuss and educated on Zoloft 75 mg daily Clonazepam 1 mg twice a day- am and bedtime- refill plan to change to three times a day in near future when off Xanax- IF NEEDED TO INCREASE Clonazepam discuss decrease Xanax 0.5 mg daily twice a day and not at same time as Clonazepam- for panic attacks - discuss slow decrease and plan to be on 1 benzo- discuss GDR- no early refills on control substance local pharmacy in [facility] educated on all rx and not to take Xanax and Clonazepam together patient would like tele visit related if anxiety/panic educated on all medications, benefits, side effects and risk, and educated on depression, anxiety, and mood d/o and educated on compliance of medications, metabolic and movement d/o education appointment is, continue therapy discussion with patient about course of treatment and patient instructions. education on serotonin syndrome SSRI/SNRI side effects discussed including but not limited to, gastric upset, nausea, vomiting, diarrhea and/or constipation, weight changes, sexual side effects including loss of libido, increased suicidal thoughts/behavior s in children and young adults, and serotonin syndrome. Discussed and educated pt regarding benzodiazepines are generally not intended for prolonged use and that use can cause tolerance, dependence, depression, and associated memory issues including dementias (this list is not exhaustive). Benzodiazepine use is generally not recommended concurrently with pain medications and/or other controlled substances due to increased risks of profound sedation, respiratory depression, coma, and even . They are not to be used with any alcohol, as this combination can also be lethal. Patient was provided caution 2. Panic disorder -obtain labs PCP OBTAIN RECORDS Dr. Kurtz office refer to therapy- APRIL Patient will see if afford- patient will schedule appt APRIL Zoloft 75 mg daily 90 days Clonazepam 1 mg twice a day Xanax 0.5 mg twice a day plan to taper off- 3. recurrent major depression- discuss and educated on medication options ABILIFY 5 mg bedtime- educated on all rx, benefits, side effects and risk Second generation antipsychotics (SGAs) have metabolic syndrome issues with weight gain, increase in prolactin, increased waist circumference, increased lipids, and increased glucose. Thus routine monitoring of weight, metabolic labs, etc. is indicated. A general rank ordering of antipsychotics that have the greatest to the least risk of metabolic effects is olanzapine, quetiapine, risperidone, ziprasidone, and aripiprazole. However, weight gain can occur with all of these drugs and considerable variability exists among patients receiving the same drug regarding the risk of metabolic effects. Anti-psychotic agents not only increase the risk of metabolic disorder, they also increase the risk of CVA, akathisia, and movement disorders including EPS or tardive dyskinesia (more common with first generation antipsychotics) and more. 4. Long-term drug therapy 05/20/2024 Panic disorder [episodic paroxysmal anxiety] without agoraphobia (ICD-10 - F41.0) Panic Attacks: Care Instructions material was published, Panic Attacks: Care Instructions material was published 1. Generalized anxiety disorder - (hx paxil 20 mg BID - r/t agitated and trouble sleeping) discuss and educated on Zoloft 75 mg daily Clonazepam 1 mg twice a day- am and bedtime- refill plan to change to three times a day in near future when off Xanax- IF NEEDED TO INCREASE Clonazepam Xanax 1.5 mg daily in afternoon- for panic attacks - discuss slow decrease and plan to be on 1 benzo- discuss GDR- [facility] educated on all rx and not to take Xanax and Clonazepam together patient would like tele visit related to anxiety/panic educated on all medications, benefits, side effects and risk, and educated on depression, anxiety, and mood d/o and educated on compliance of medications, metabolic and movement d/o education appointment is, continue therapy discussion with patient about course of treatment and patient instructions. education on serotonin syndrome SSRI/SNRI side effects discussed including but not limited to, gastric upset, nausea, vomiting, diarrhea and/or constipation, weight changes, sexual side effects including loss of libido, increased suicidal thoughts/behavior s in children and young adults, and serotonin syndrome. Discussed and educated pt regarding benzodiazepines are generally not intended for prolonged use and that use can cause tolerance, dependence, depression, and associated memory issues including dementias (this list is not exhaustive). Benzodiazepine use is generally not recommended concurrently with pain medications and/or other controlled substances due to increased risks of profound sedation, respiratory depression, coma, and even . They are not to be used with any alcohol, as this combination can also be lethal. Patient was provided caution 2. Panic disorder -obtain labs PCP OBTAIN RECORDS Dr. Kurtz office refer to therapy- APRIL Patient will see if afford- patient will schedule appt APRIL Zoloft 75 mg daily 90 days sent 05/20/24 Clonazepam 1 mg twice a day sent 05/20/24 with 1 refill Xanax 1.5 mg daily plan to taper off- sent 05/20/24 with 1 refill 3. recurrent major depression- discuss and educated on medication options ABILIFY 5 mg bedtime- sent 90 days 05/20/24 educated on all rx, benefits, side effects and risk Second generation antipsychotics (SGAs) have metabolic syndrome issues with weight gain, increase in prolactin, increased waist circumference, increased lipids, and increased glucose. Thus routine monitoring of weight, metabolic labs, etc. is indicated. A general rank ordering of antipsychotics that have the greatest to the least risk of metabolic effects is olanzapine, quetiapine, risperidone, ziprasidone, and aripiprazole. However, weight gain can occur with all of these drugs and considerable variability exists among patients receiving the same drug regarding the risk of metabolic effects. Anti-psychotic agents not only increase the risk of metabolic disorder, they also increase the risk of CVA, akathisia, and movement disorders including EPS or tardive dyskinesia (more common with first generation antipsychotics) and more. 4. 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 Generalized anxiety disorder - (hx paxil 20 mg BID - r/t agitated and trouble sleeping) discuss and educated on all rx- educated and discuss changes to rx to help depression, anxiety, panic Increase Zoloft 100 mg daily for 2 weeks then increase Zoloft 150 mg daily Increase Clonazepam 1 mg three a day- refill discuss decrease Xanax 0.5 mg daily once a day for next 2 week then stop continue therapy and work on coping skills, anxiety, worries, panic, depression, no early refills on control substance local pharmacy in [facility] ud educated on all rx and not to take Xanax and Clonazepam together patient would like tele visit related if anxiety/panic educated on all medications, benefits, side effects and risk, and educated on depression, anxiety, and mood d/o and educated on compliance of medications, metabolic and movement d/o education appointment is, continue therapy discussion with patient about course of treatment and patient instructions. education on serotonin syndrome SSRI/SNRI side effects discussed including but not limited to, gastric upset, nausea, vomiting, diarrhea and/or constipation, weight changes, sexual side effects including loss of libido, increased suicidal thoughts/behavior s in children and young adults, and serotonin syndrome. Discussed and educated pt regarding benzodiazepines are generally not intended for prolonged use and that use can cause tolerance, dependence, depression, and associated memory issues including dementias (this list is not exhaustive). Benzodiazepine use is generally not recommended concurrently with pain medications and/or other controlled substances due to increased risks of profound sedation, respiratory depression, coma, and even . They are not to be used with any alcohol, as this combination can also be lethal. Patient was provided caution 2. Panic disorder -obtain labs PCP OBTAIN RECORDS Dr. Kurtz office refer to therapy- APRIL Patient will see if afford- patient will schedule appt APRIL Clonazepam 1 mg three a day Xanax 0.5 mg once a day for 2 weeks then stop- 3. recurrent major depression- discuss and educated on medication options ABILIFY 5 mg bedtime- educated on all rx, benefits, side effects and risk Second generation antipsychotics (SGAs) have metabolic syndrome issues with weight gain, increase in prolactin, increased waist circumference, increased lipids, and increased glucose. Thus routine monitoring of weight, metabolic labs, etc. is indicated. A general rank ordering of antipsychotics that have the greatest to the least risk of metabolic effects is olanzapine, quetiapine, risperidone, ziprasidone, and aripiprazole. However, weight gain can occur with all of these drugs and considerable variability exists among patients receiving the same drug regarding the risk of metabolic effects. Anti-psychotic agents not only increase the risk of metabolic disorder, they also increase the risk of CVA, akathisia, and movement disorders including EPS or tardive dyskinesia (more common with first generation antipsychotics) and more. 4. Insomnia sleep hygiene discuss sleep study options Long-term drug therapy 01/26/2024 Other assisted (current) drug therapy (ICD-10 - Z79.899) Medication Refill: Care Instructions material was published 1. Generalized anxiety disorder - (hx paxil 20 mg BID - r/t agitated and trouble sleeping) discuss and educated on Zoloft - will increase Zoloft 75 mg daily for depression and anxiety Clonazepam 1 mg twice a day- am and bedtime- plan to change to three times a day in near future when off Xanax Xanax 2 mg daily in afternoon- for panic attacks - discuss may slow decrease in near future and plan to be on 1 benzo no early refills [facility] educated on all rx and not to take Xanax and Clonazepam together patient would like tele visit related to anxiety/panic educated on all medications, benefits, side effects and risk, and educated on depression, anxiety, and mood d/o and educated on compliance of medications, metabolic and movement d/o education appointment is, continue therapy discussion with patient about course of treatment and patient instructions. education on serotonin syndrome SSRI/SNRI side effects discussed including but not limited to, gastric upset, nausea, vomiting, diarrhea and/or constipation, weight changes, sexual side effects including loss of libido, increased suicidal thoughts/behavior s in children and young adults, and serotonin syndrome. Discussed and educated pt regarding benzodiazepines are generally not intended for prolonged use and that use can cause tolerance, dependence, depression, and associated memory issues including dementias (this list is not exhaustive). Benzodiazepine use is generally not recommended concurrently with pain medications and/or other controlled substances due to increased risks of profound sedation, respiratory depression, coma, and even . They are not to be used with any alcohol, as this combination can also be lethal. Patient was provided caution F41.1: Generalized anxiety disorder alprazolam 2 mg tablet - Take 1 tablet(s) every day by oral route as directed for 30 days. Qty: (30) tablet Refills: 0 Pharmacy: [facility] [id number] clonazepam 1 mg tablet - Take 1 tablet(s) twice a day by oral route as directed for 30 days. Qty: (60) tablet Refills: 0 Pharmacy: [place] [id number] sertraline 50 mg tablet - Take 1 tablet(s) every day by oral route in the morning for 14 days. Qty: (30 tablet Refills: 2 Pharmacy: [place] [id number] Note to Pharmacy: total 75 mg sertraline 25 mg tablet - Take 1 tablet(s) every day by oral route in the morning for 30 days. Qty: (30) tablet Refills: 2 Pharmacy: [place] [id number] Note to Pharmacy: total 75 mg 2. Panic disorder -obtain labs PCP OBTAIN RECORDS Dr. Kurtz office refer to therapy Zoloft Clonazepam 1 mg twice a day Xanax 2 mg daily F41.0: Panic disorder [episodic paroxysmal anxiety] 3. Mild recurrent major depression 4. Long-term drug therapy 03/21/2024 Panic disorder [episodic paroxysmal anxiety] without agoraphobia (ICD-10 - F41.0) Panic Attacks: Care Instructions material was published 1. Generalized anxiety disorder - (hx paxil 20 mg BID - r/t agitated and trouble sleeping) discuss and educated on Zoloft - will increase Zoloft 100 mg daily for depression and anxiety Clonazepam 1 mg twice a day- am and bedtime- plan to change to three times a day in near future when off Xanax- IF NEEDED TO INCREASE Clonazepam Xanax 1.5 mg daily in afternoon- for panic attacks - discuss slow decrease and plan to be on 1 benzo no early refills [facility] educated on all rx and not to take Xanax and Clonazepam together patient would like tele visit related to anxiety/panic educated on all medications, benefits, side effects and risk, and educated on depression, anxiety, and mood d/o and educated on compliance of medications, metabolic and movement d/o education appointment is, continue therapy discussion with patient about course of treatment and patient instructions. education on serotonin syndrome SSRI/SNRI side effects discussed including but not limited to, gastric upset, nausea, vomiting, diarrhea and/or constipation, weight changes, sexual side effects including loss of libido, increased suicidal thoughts/behavior s in children and young adults, and serotonin syndrome. Discussed and educated pt regarding benzodiazepines are generally not intended for prolonged use and that use can cause tolerance, dependence, depression, and associated memory issues including dementias (this list is not exhaustive). Benzodiazepine use is generally not recommended concurrently with pain medications and/or other controlled substances due to increased risks of profound sedation, respiratory depression, coma, and even . They are not to be used with any alcohol, as this combination can also be lethal. Patient was provided caution 2. Panic disorder -obtain labs PCP OBTAIN RECORDS Dr. Kurtz office refer to therapy Zoloft 100 mg daily Clonazepam 1 mg twice a day Xanax 1.5 mg daily plan to taper off 3. Mild recurrent major depression 4. Long-term drug therapy 10/31/2024 Encounter for screening for cardiovascular disorders (ICD-10 - Z13.6) 1. Generalized anxiety disorder - (hx paxil 20 mg BID - r/t agitated and trouble sleeping) discuss and educated on all rx- educated and discuss changes to rx to help depression, anxiety, panic Zoloft 150 mg daily discuss and educated on not having 2 benzo and finding time for self and , and educated on ways to reduce stress and relaxation. Clonazepam 1 mg three a day- discuss and educated on Buspar, Propanolol, Clonidine for anxiety - patient reported hx Buspar did not help Add Propanolol 10 mg daily as needed for anxiety and panic monitor B/P Patient stopped Vistaril - fatigue continue therapy and work on coping skills, anxiety, worries, panic, depression, no early refills on control substance local pharmacy in [facility] uds educated on all medications, benefits, side effects and risk, and educated on depression, anxiety, and mood d/o and educated on compliance of medications, metabolic and movement d/o education appointment is, continue therapy discussion with patient about course of treatment and patient instructions. education on serotonin syndrome SSRI/SNRI side effects discussed including but not limited to, gastric upset, nausea, vomiting, diarrhea and/or constipation, weight changes, sexual side effects including loss of libido, increased suicidal thoughts/behavior s in children and young adults, and serotonin syndrome. Discussed and educated pt regarding benzodiazepines are generally not intended for prolonged use and that use can cause tolerance, dependence, depression, and associated memory issues including dementias (this list is not exhaustive). Benzodiazepine use is generally not recommended concurrently with pain medications and/or other controlled substances due to increased risks of profound sedation, respiratory depression, coma, and even . They are not to be used with any alcohol, as this combination can also be lethal. Patient was provided caution 2. Panic disorder -obtain labs PCP OBTAIN RECORDS Dr. Kurtz office refer to therapy- coping skills Clonazepam 1 mg three a day 3. recurrent major depression- discuss and educated on medication options ABILIFY 5 mg bedtime- educated on all rx, benefits, side effects and risk Second generation antipsychotics (SGAs) have metabolic syndrome issues with weight gain, increase in prolactin, increased waist circumference, increased lipids, and increased glucose. Thus routine monitoring of weight, metabolic labs, etc. is indicated. A general rank ordering of antipsychotics that have the greatest to the least risk of metabolic effects is olanzapine, quetiapine, risperidone, ziprasidone, and aripiprazole. However, weight gain can occur with all of these drugs and considerable variability exists among patients receiving the same drug regarding the risk of metabolic effects. Anti-psychotic agents not only increase the risk of metabolic disorder, they also increase the risk of CVA, akathisia, and movement disorders including EPS or tardive dyskinesia (more common with first generation antipsychotics) and more. 4. Insomnia sleep hygiene discuss sleep study options Long-term drug therapy 11/17/2024 Encounter for screening for depression (ICD-10 - Z13.31) 1. Generalized anxiety disorder - (hx paxil 20 mg BID - r/t agitated and trouble sleeping) discuss and educated on all rx- educated and discuss changes to rx to help depression, anxiety, panic Zoloft 150 mg daily discuss and educated on not having 2 benzo and finding time for self and , and educated on ways to reduce stress and relaxation. discuss and educated on Buspar, Propanolol, Clonidine for anxiety - patient reported hx Buspar did not help continue therapy and work on coping skills, anxiety, worries, panic, depression, no early refills on control substance local pharmacy in [facility] educated on all medications, benefits, side effects and risk, and educated on depression, anxiety, and mood d/o and educated on compliance of medications, metabolic and movement d/o education appointment is, continue therapy discussion with patient about course of treatment and patient instructions. education on serotonin syndrome SSRI/SNRI side effects discussed including but not limited to, gastric upset, nausea, vomiting, diarrhea and/or constipation, weight changes, sexual side effects including loss of libido, increased suicidal thoughts/behavior s in children and young adults, and serotonin syndrome. Discussed and educated pt regarding benzodiazepines are generally not intended for prolonged use and that use can cause tolerance, dependence, depression, and associated memory issues including dementias (this list is not exhaustive). Benzodiazepine use is generally not recommended concurrently with pain medications and/or other controlled substances due to increased risks of profound sedation, respiratory depression, coma, and even . They are not to be used with any alcohol, as this combination can also be lethal. Patient was provided caution 2. Panic disorder -obtain labs PCP OBTAIN RECORDS Dr. Kurtz office refer to therapy- coping skills D/C Clonazepam 1 mg three a day- patient will take rx to pharmacy to discard rx has at home Add Xanax 1 mg three times a day 3. recurrent major depression- discuss and educated on medication options Add Seroquel 50 mg at bedtime for 1 week then increase to Seroquel 100 mg bedtime - For depression, anxiety and agitation help sleep D/C ABILIFY 5 mg bedtime- educated on all rx, benefits, side effects and risk Second generation antipsychotics (SGAs) have metabolic syndrome issues with weight gain, increase in prolactin, increased waist circumference, increased lipids, and increased glucose. Thus routine monitoring of weight, metabolic labs, etc. is indicated. A general rank ordering of antipsychotics that have the greatest to the least risk of metabolic effects is olanzapine, quetiapine, risperidone, ziprasidone, and aripiprazole. However, weight gain can occur with all of these drugs and considerable variability exists among patients receiving the same drug regarding the risk of metabolic effects. Anti-psychotic agents not only increase the risk of metabolic disorder, they also increase the risk of CVA, akathisia, and movement disorders including EPS or tardive dyskinesia (more common with first generation antipsychotics) and more. 4. Insomnia sleep hygiene discuss sleep study options Long-term drug therapy 12/22/2024 Encounter for screening for cardiovascular disorders (ICD-10 - Z13.6) 1. Generalized anxiety disorder - (hx paxil 20 mg BID - r/t agitated and trouble sleeping) discuss and educated on all rx- educated and discuss changes to rx to help depression, anxiety, panic Zoloft 150 mg daily discuss and educated on not having 2 benzo and finding time for self and , and educated on ways to reduce stress and relaxation. discuss and educated on Buspar, Propanolol, Clonidine for anxiety - patient reported hx Buspar did not help continue therapy and work on coping skills, anxiety, worries, panic, depression, no early refills on control substance local pharmacy in [facility] educated on all medications, benefits, side effects and risk, and educated on depression, anxiety, and mood d/o and educated on compliance of medications, metabolic and movement d/o education appointment is, continue therapy discussion with patient about course of treatment and patient instructions. education on serotonin syndrome SSRI/SNRI side effects discussed including but not limited to, gastric upset, nausea, vomiting, diarrhea and/or constipation, weight changes, sexual side effects including loss of libido, increased suicidal thoughts/behavior s in children and young adults, and serotonin syndrome. Discussed and educated pt regarding benzodiazepines are generally not intended for prolonged use and that use can cause tolerance, dependence, depression, and associated memory issues including dementias (this list is not exhaustive). Benzodiazepine use is generally not recommended concurrently with pain medications and/or other controlled substances due to increased risks of profound sedation, respiratory depression, coma, and even . They are not to be used with any alcohol, as this combination can also be lethal. Patient was provided caution 2. Panic disorder - labs PCP refer to therapy- coping skills Xanax 1 mg three times a day 3. major depression- discuss and educated on medication options Seroquel 100 mg bedtime - For depression, anxiety and agitation help sleep educated on all rx, benefits, side effects and risk Second generation antipsychotics (SGAs) have metabolic syndrome issues with weight gain, increase in prolactin, increased waist circumference, increased lipids, and increased glucose. Thus routine monitoring of weight, metabolic labs, etc. is indicated. A general rank ordering of antipsychotics that have the greatest to the least risk of metabolic effects is olanzapine, quetiapine, risperidone, ziprasidone, and aripiprazole. However, weight gain can occur with all of these drugs and considerable variability exists among patients receiving the same drug regarding the risk of metabolic effects. Anti-psychotic agents not only increase the risk of metabolic disorder, they also increase the risk of CVA, akathisia, and movement disorders including EPS or tardive dyskinesia (more common with first generation antipsychotics) and more. 4. Insomnia sleep hygiene discuss sleep study options Long-term drug therapy 11/17/2024 Nicotine use (ICD-10 - Z72.0) 1. Generalized anxiety disorder - (hx paxil 20 mg BID - r/t agitated and trouble sleeping) discuss and educated on all rx- educated and discuss changes to rx to help depression, anxiety, panic Zoloft 150 mg daily discuss and educated on not having 2 benzo and finding time for self and , and educated on ways to reduce stress and relaxation. discuss and educated on Buspar, Propanolol, Clonidine for anxiety - patient reported hx Buspar did not help continue therapy and work on coping skills, anxiety, worries, panic, depression, no early refills on control substance local pharmacy in [facility] ud educated on all medications, benefits, side effects and risk, and educated on depression, anxiety, and mood d/o and educated on compliance of medications, metabolic and movement d/o education appointment is, continue therapy discussion with patient about course of treatment and patient instructions. education on serotonin syndrome SSRI/SNRI side effects discussed including but not limited to, gastric upset, nausea, vomiting, diarrhea and/or constipation, weight changes, sexual side effects including loss of libido, increased suicidal thoughts/behavior s in children and young adults, and serotonin syndrome. Discussed and educated pt regarding benzodiazepines are generally not intended for prolonged use and that use can cause tolerance, dependence, depression, and associated memory issues including dementias (this list is not exhaustive). Benzodiazepine use is generally not recommended concurrently with pain medications and/or other controlled substances due to increased risks of profound sedation, respiratory depression, coma, and even . They are not to be used with any alcohol, as this combination can also be lethal. Patient was provided caution 2. Panic disorder -obtain labs PCP OBTAIN RECORDS Dr. Kurtz office refer to therapy- coping skills D/C Clonazepam 1 mg three a day- patient will take rx to pharmacy to discard rx has at home Add Xanax 1 mg three times a day 3. recurrent major depression- discuss and educated on medication options Add Seroquel 50 mg at bedtime for 1 week then increase to Seroquel 100 mg bedtime - For depression, anxiety and agitation help sleep D/C ABILIFY 5 mg bedtime- educated on all rx, benefits, side effects and risk Second generation antipsychotics (SGAs) have metabolic syndrome issues with weight gain, increase in prolactin, increased waist circumference, increased lipids, and increased glucose. Thus routine monitoring of weight, metabolic labs, etc. is indicated. A general rank ordering of antipsychotics that have the greatest to the least risk of metabolic effects is olanzapine, quetiapine, risperidone, ziprasidone, and aripiprazole. However, weight gain can occur with all of these drugs and considerable variability exists among patients receiving the same drug regarding the risk of metabolic effects. Anti-psychotic agents not only increase the risk of metabolic disorder, they also increase the risk of CVA, akathisia, and movement disorders including EPS or tardive dyskinesia (more common with first generation antipsychotics) and more. 4. Insomnia sleep hygiene discuss sleep study options Long-term drug therapy 12/22/2024 Encounter for screening for depression (ICD-10 - Z13.31) 1. Generalized anxiety disorder - (hx paxil 20 mg BID - r/t agitated and trouble sleeping) discuss and educated on all rx- educated and discuss changes to rx to help depression, anxiety, panic Zoloft 150 mg daily discuss and educated on not having 2 benzo and finding time for self and , and educated on ways to reduce stress and relaxation. discuss and educated on Buspar, Propanolol, Clonidine for anxiety - patient reported hx Buspar did not help continue therapy and work on coping skills, anxiety, worries, panic, depression, no early refills on control substance local pharmacy in [place] [facility] ud[facility] educated on all medications, benefits, side effects and risk, and educated on depression, anxiety, and mood d/o and educated on compliance of medications, metabolic and movement d/o education appointment is, continue therapy discussion with patient about course of treatment and patient instructions. education on serotonin syndrome SSRI/SNRI side effects discussed including but not limited to, gastric upset, nausea, vomiting, diarrhea and/or constipation, weight changes, sexual side effects including loss of libido, increased suicidal thoughts/behavior s in children and young adults, and serotonin syndrome. Discussed and educated pt regarding benzodiazepines are generally not intended for prolonged use and that use can cause tolerance, dependence, depression, and associated memory issues including dementias (this list is not exhaustive). Benzodiazepine use is generally not recommended concurrently with pain medications and/or other controlled substances due to increased risks of profound sedation, respiratory depression, coma, and even . They are not to be used with any alcohol, as this combination can also be lethal. Patient was provided caution 2. Panic disorder - labs PCP refer to therapy- coping skills Xanax 1 mg three times a day 3. major depression- discuss and educated on medication options Seroquel 100 mg bedtime - For depression, anxiety and agitation help sleep educated on all rx, benefits, side effects and risk Second generation antipsychotics (SGAs) have metabolic syndrome issues with weight gain, increase in prolactin, increased waist circumference, increased lipids, and increased glucose. Thus routine monitoring of weight, metabolic labs, etc. is indicated. A general rank ordering of antipsychotics that have the greatest to the least risk of metabolic effects is olanzapine, quetiapine, risperidone, ziprasidone, and aripiprazole. However, weight gain can occur with all of these drugs and considerable variability exists among patients receiving the same drug regarding the risk of metabolic effects. Anti-psychotic agents not only increase the risk of metabolic disorder, they also increase the risk of CVA, akathisia, and movement disorders including EPS or tardive dyskinesia (more common with first generation antipsychotics) and more. 4. Insomnia sleep hygiene discuss sleep study options Long-term drug therapy 10/10/2024 Nicotine use (ICD-10 - Z72.0) 1. Generalized anxiety disorder - (hx paxil 20 mg BID - r/t agitated and trouble sleeping) discuss and educated on all rx- educated and discuss changes to rx to help depression, anxiety, panic Increase Zoloft 100 mg daily for 2 weeks then increase Zoloft 150 mg daily Increase Clonazepam 1 mg three a day- refill discuss decrease Xanax 0.5 mg daily once a day for next 2 week then stop continue therapy and work on coping skills, anxiety, worries, panic, depression, no early refills on control substance local pharmacy in [facility] educated on all rx and not to take Xanax and Clonazepam together patient would like tele visit related if anxiety/panic educated on all medications, benefits, side effects and risk, and educated on depression, anxiety, and mood d/o and educated on compliance of medications, metabolic and movement d/o education appointment is, continue therapy discussion with patient about course of treatment and patient instructions. education on serotonin syndrome SSRI/SNRI side effects discussed including but not limited to, gastric upset, nausea, vomiting, diarrhea and/or constipation, weight changes, sexual side effects including loss of libido, increased suicidal thoughts/behavior s in children and young adults, and serotonin syndrome. Discussed and educated pt regarding benzodiazepines are generally not intended for prolonged use and that use can cause tolerance, dependence, depression, and associated memory issues including dementias (this list is not exhaustive). Benzodiazepine use is generally not recommended concurrently with pain medications and/or other controlled substances due to increased risks of profound sedation, respiratory depression, coma, and even . They are not to be used with any alcohol, as this combination can also be lethal. Patient was provided caution 2. Panic disorder -obtain labs PCP OBTAIN RECORDS Dr. Kurtz office refer to therapy- APRIL Patient will see if afford- patient will schedule appt APRIL Clonazepam 1 mg three a day Xanax 0.5 mg once a day for 2 weeks then stop- 3. recurrent major depression- discuss and educated on medication options ABILIFY 5 mg bedtime- educated on all rx, benefits, side effects and risk Second generation antipsychotics (SGAs) have metabolic syndrome issues with weight gain, increase in prolactin, increased waist circumference, increased lipids, and increased glucose. Thus routine monitoring of weight, metabolic labs, etc. is indicated. A general rank ordering of antipsychotics that have the greatest to the least risk of metabolic effects is olanzapine, quetiapine, risperidone, ziprasidone, and aripiprazole. However, weight gain can occur with all of these drugs and considerable variability exists among patients receiving the same drug regarding the risk of metabolic effects. Anti-psychotic agents not only increase the risk of metabolic disorder, they also increase the risk of CVA, akathisia, and movement disorders including EPS or tardive dyskinesia (more common with first generation antipsychotics) and more. 4. Insomnia sleep hygiene discuss sleep study options Long-term drug therapy 10/31/2024 Generalized anxiety disorder (ICD-10 - F41.1) Learning About Generalized Anxiety Disorder material was published, Generalized Anxiety Disorder: Care Instructions material was published, Learning About Anxiety Disorders material was published, Generalized Anxiety Disorder: Care Instructions material was published, Learning About Generalized Anxiety Disorder material was published, Learning About Anxiety Disorders material was published 1. Generalized anxiety disorder - (hx paxil 20 mg BID - r/t agitated and trouble sleeping) discuss and educated on all rx- educated and discuss changes to rx to help depression, anxiety, panic Zoloft 150 mg daily discuss and educated on not having 2 benzo and finding time for self and , and educated on ways to reduce stress and relaxation. Clonazepam 1 mg three a day- discuss and educated on Buspar, Propanolol, Clonidine for anxiety - patient reported hx Buspar did not help Add Propanolol 10 mg daily as needed for anxiety and panic monitor B/P Patient stopped Vistaril - fatigue continue therapy and work on coping skills, anxiety, worries, panic, depression, no early refills on control substance local pharmacy in [facility] educated on all medications, benefits, side effects and risk, and educated on depression, anxiety, and mood d/o and educated on compliance of medications, metabolic and movement d/o education appointment is, continue therapy discussion with patient about course of treatment and patient instructions. education on serotonin syndrome SSRI/SNRI side effects discussed including but not limited to, gastric upset, nausea, vomiting, diarrhea and/or constipation, weight changes, sexual side effects including loss of libido, increased suicidal thoughts/behavior s in children and young adults, and serotonin syndrome. Discussed and educated pt regarding benzodiazepines are generally not intended for prolonged use and that use can cause tolerance, dependence, depression, and associated memory issues including dementias (this list is not exhaustive). Benzodiazepine use is generally not recommended concurrently with pain medications and/or other controlled substances due to increased risks of profound sedation, respiratory depression, coma, and even . They are not to be used with any alcohol, as this combination can also be lethal. Patient was provided caution 2. Panic disorder -obtain labs PCP OBTAIN RECORDS Dr. Kurtz office refer to therapy- coping skills Clonazepam 1 mg three a day 3. recurrent major depression- discuss and educated on medication options ABILIFY 5 mg bedtime- educated on all rx, benefits, side effects and risk Second generation antipsychotics (SGAs) have metabolic syndrome issues with weight gain, increase in prolactin, increased waist circumference, increased lipids, and increased glucose. Thus routine monitoring of weight, metabolic labs, etc. is indicated. A general rank ordering of antipsychotics that have the greatest to the least risk of metabolic effects is olanzapine, quetiapine, risperidone, ziprasidone, and aripiprazole. However, weight gain can occur with all of these drugs and considerable variability exists among patients receiving the same drug regarding the risk of metabolic effects. Anti-psychotic agents not only increase the risk of metabolic disorder, they also increase the risk of CVA, akathisia, and movement disorders including EPS or tardive dyskinesia (more common with first generation antipsychotics) and more. 4. 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 Generalized anxiety disorder - (hx paxil 20 mg BID - r/t agitated and trouble sleeping) discuss and educated on Zoloft - will increase Zoloft 100 mg daily for depression and anxiety Clonazepam 1 mg twice a day- am and bedtime- plan to change to three times a day in near future when off Xanax- IF NEEDED TO INCREASE Clonazepam Xanax 1.5 mg daily in afternoon- for panic attacks - discuss slow decrease and plan to be on 1 benzo no early refills on [facility] educated on all rx and not to take Xanax and Clonazepam together patient would like tele visit related to anxiety/panic educated on all medications, benefits, side effects and risk, and educated on depression, anxiety, and mood d/o and educated on compliance of medications, metabolic and movement d/o education appointment is, continue therapy discussion with patient about course of treatment and patient instructions. education on serotonin syndrome SSRI/SNRI side effects discussed including but not limited to, gastric upset, nausea, vomiting, diarrhea and/or constipation, weight changes, sexual side effects including loss of libido, increased suicidal thoughts/behavior s in children and young adults, and serotonin syndrome. Discussed and educated pt regarding benzodiazepines are generally not intended for prolonged use and that use can cause tolerance, dependence, depression, and associated memory issues including dementias (this list is not exhaustive). Benzodiazepine use is generally not recommended concurrently with pain medications and/or other controlled substances due to increased risks of profound sedation, respiratory depression, coma, and even . They are not to be used with any alcohol, as this combination can also be lethal. Patient was provided caution 2. Panic disorder -obtain labs PCP OBTAIN RECORDS Dr. Kurtz office refer to therapy Zoloft 100 mg daily Clonazepam 1 mg twice a day Xanax 1.5 mg daily plan to taper off 3. Mild recurrent major depression 4. Long-term drug therapy 05/09/2024 Elevated blood pressure reading (ICD-10 - R03.0) 1. Generalized anxiety disorder - (hx paxil 20 mg BID - r/t agitated and trouble sleeping) discuss and educated on Zoloft - Zoloft 100 mg daily for depression and anxiety- rx sent 05/09/24 # 90 Clonazepam 1 mg twice a day- am and bedtime- no refill due today scheduled 05/20/24 plan to change to three times a day in near future when off Xanax- IF NEEDED TO INCREASE Clonazepam Xanax 1.5 mg daily in afternoon- for panic attacks - discuss slow decrease and plan to be on 1 benzo- discuss GDR- no refill given 05/09/24 no early refills on [facility] ud educated on all rx and not to take Xanax and Clonazepam together patient would like tele visit related to anxiety/panic educated on all medications, benefits, side effects and risk, and educated on depression, anxiety, and mood d/o and educated on compliance of medications, metabolic and movement d/o education appointment is, continue therapy discussion with patient about course of treatment and patient instructions. education on serotonin syndrome SSRI/SNRI side effects discussed including but not limited to, gastric upset, nausea, vomiting, diarrhea and/or constipation, weight changes, sexual side effects including loss of libido, increased suicidal thoughts/behavior s in children and young adults, and serotonin syndrome. Discussed and educated pt regarding benzodiazepines are generally not intended for prolonged use and that use can cause tolerance, dependence, depression, and associated memory issues including dementias (this list is not exhaustive). Benzodiazepine use is generally not recommended concurrently with pain medications and/or other controlled substances due to increased risks of profound sedation, respiratory depression, coma, and even . They are not to be used with any alcohol, as this combination can also be lethal. Patient was provided caution 2. Panic disorder -obtain labs PCP OBTAIN RECORDS Dr. Kurtz office refer to therapy- APRIL Patient will see if afford Zoloft 100 mg daily Clonazepam 1 mg twice a day Xanax 1.5 mg daily plan to taper off 3. recurrent major depression- severe - discuss and educated on medication options Will add ABILIFY 2.5 MG AT BEDTIME for 1 week then increase Abilify 5 mg bedtime educated on all rx, benefits, side effects and risk 4. Long-term drug therapy 05/20/2024 Other assisted (current) drug therapy (ICD-10 - Z79.899) Medication Refill: Care Instructions material was published, Medication Refill: Care Instructions material was published 1. Generalized anxiety disorder - (hx paxil 20 mg BID - r/t agitated and trouble sleeping) discuss and educated on Zoloft 75 mg daily Clonazepam 1 mg twice a day- am and bedtime- refill plan to change to three times a day in near future when off Xanax- IF NEEDED TO INCREASE Clonazepam Xanax 1.5 mg daily in afternoon- for panic attacks - discuss slow decrease and plan to be on 1 benzo- discuss GDR- no early refills on [facility]ocal [facility] in [facility] educated on all rx and not to take Xanax and Clonazepam together patient would like tele visit related to anxiety/panic educated on all medications, benefits, side effects and risk, and educated on depression, anxiety, and mood d/o and educated on compliance of medications, metabolic and movement d/o education appointment is, continue therapy discussion with patient about course of treatment and patient instructions. education on serotonin syndrome SSRI/SNRI side effects discussed including but not limited to, gastric upset, nausea, vomiting, diarrhea and/or constipation, weight changes, sexual side effects including loss of libido, increased suicidal thoughts/behavior s in children and young adults, and serotonin syndrome. Discussed and educated pt regarding benzodiazepines are generally not intended for prolonged use and that use can cause tolerance, dependence, depression, and associated memory issues including dementias (this list is not exhaustive). Benzodiazepine use is generally not recommended concurrently with pain medications and/or other controlled substances due to increased risks of profound sedation, respiratory depression, coma, and even . They are not to be used with any alcohol, as this combination can also be lethal. Patient was provided caution 2. Panic disorder -obtain labs PCP OBTAIN RECORDS Dr. Kurtz office refer to therapy- APRIL Patient will see if afford- patient will schedule appt APRIL Zoloft 75 mg daily 90 days sent 05/20/24 Clonazepam 1 mg twice a day sent 05/20/24 with 1 refill Xanax 1.5 mg daily plan to taper off- sent 05/20/24 with 1 refill 3. recurrent major depression- discuss and educated on medication options ABILIFY 5 mg bedtime- sent 90 days 05/20/24 educated on all rx, benefits, side effects and risk Second generation antipsychotics (SGAs) have metabolic syndrome issues with weight gain, increase in prolactin, increased waist circumference, increased lipids, and increased glucose. Thus routine monitoring of weight, metabolic labs, etc. is indicated. A general rank ordering of antipsychotics that have the greatest to the least risk of metabolic effects is olanzapine, quetiapine, risperidone, ziprasidone, and aripiprazole. However, weight gain can occur with all of these drugs and considerable variability exists among patients receiving the same drug regarding the risk of metabolic effects. Anti-psychotic agents not only increase the risk of metabolic disorder, they also increase the risk of CVA, akathisia, and movement disorders including EPS or tardive dyskinesia (more common with first generation antipsychotics) and more. 4. Long-term drug therapy 10/10/2024 Encounter for screening for depression (ICD-10 - Z13.31) 1. Generalized anxiety disorder - (hx paxil 20 mg BID - r/t agitated and trouble sleeping) discuss and educated on all rx- educated and discuss changes to rx to help depression, anxiety, panic Increase Zoloft 100 mg daily for 2 weeks then increase Zoloft 150 mg daily Increase Clonazepam 1 mg three a day- refill discuss decrease Xanax 0.5 mg daily once a day for next 2 week then stop continue therapy and work on coping skills, anxiety, worries, panic, depression, no early refills on control substance local pharmacy in [facility] uds educated on all rx and not to take Xanax and Clonazepam together patient would like tele visit related if anxiety/panic educated on all medications, benefits, side effects and risk, and educated on depression, anxiety, and mood d/o and educated on compliance of medications, metabolic and movement d/o education appointment is, continue therapy discussion with patient about course of treatment and patient instructions. education on serotonin syndrome SSRI/SNRI side effects discussed including but not limited to, gastric upset, nausea, vomiting, diarrhea and/or constipation, weight changes, sexual side effects including loss of libido, increased suicidal thoughts/behavior s in children and young adults, and serotonin syndrome. Discussed and educated pt regarding benzodiazepines are generally not intended for prolonged use and that use can cause tolerance, dependence, depression, and associated memory issues including dementias (this list is not exhaustive). Benzodiazepine use is generally not recommended concurrently with pain medications and/or other controlled substances due to increased risks of profound sedation, respiratory depression, coma, and even . They are not to be used with any alcohol, as this combination can also be lethal. Patient was provided caution 2. Panic disorder -obtain labs PCP OBTAIN RECORDS Dr. Kurtz office refer to therapy- APRIL Patient will see if afford- patient will schedule appt APRIL Clonazepam 1 mg three a day Xanax 0.5 mg once a day for 2 weeks then stop- 3. recurrent major depression- discuss and educated on medication options ABILIFY 5 mg bedtime- educated on all rx, benefits, side effects and risk Second generation antipsychotics (SGAs) have metabolic syndrome issues with weight gain, increase in prolactin, increased waist circumference, increased lipids, and increased glucose. Thus routine monitoring of weight, metabolic labs, etc. is indicated. A general rank ordering of antipsychotics that have the greatest to the least risk of metabolic effects is olanzapine, quetiapine, risperidone, ziprasidone, and aripiprazole. However, weight gain can occur with all of these drugs and considerable variability exists among patients receiving the same drug regarding the risk of metabolic effects. Anti-psychotic agents not only increase the risk of metabolic disorder, they also increase the risk of CVA, akathisia, and movement disorders including EPS or tardive dyskinesia (more common with first generation antipsychotics) and more. 4. Insomnia sleep hygiene discuss sleep study options Long-term drug therapy 05/20/2024 Elevated blood pressure reading (ICD-10 - R03.0) 1. Generalized anxiety disorder - (hx paxil 20 mg BID - r/t agitated and trouble sleeping) discuss and educated on Zoloft 75 mg daily Clonazepam 1 mg twice a day- am and bedtime- refill plan to change to three times a day in near future when off Xanax- IF NEEDED TO INCREASE Clonazepam Xanax 1.5 mg daily in afternoon- for panic attacks - discuss slow decrease and plan to be on 1 benzo- discuss GDR- no [facility] educated on all rx and not to take Xanax and Clonazepam together patient would like tele visit related to anxiety/panic educated on all medications, benefits, side effects and risk, and educated on depression, anxiety, and mood d/o and educated on compliance of medications, metabolic and movement d/o education appointment is, continue therapy discussion with patient about course of treatment and patient instructions. education on serotonin syndrome SSRI/SNRI side effects discussed including but not limited to, gastric upset, nausea, vomiting, diarrhea and/or constipation, weight changes, sexual side effects including loss of libido, increased suicidal thoughts/behavior s in children and young adults, and serotonin syndrome. Discussed and educated pt regarding benzodiazepines are generally not intended for prolonged use and that use can cause tolerance, dependence, depression, and associated memory issues including dementias (this list is not exhaustive). Benzodiazepine use is generally not recommended concurrently with pain medications and/or other controlled substances due to increased risks of profound sedation, respiratory depression, coma, and even . They are not to be used with any alcohol, as this combination can also be lethal. Patient was provided caution 2. Panic disorder -obtain labs PCP OBTAIN RECORDS Dr. Kurtz office refer to therapy- APRIL Patient will see if afford- patient will schedule appt APRIL Zoloft 75 mg daily 90 days sent 05/20/24 Clonazepam 1 mg twice a day sent 05/20/24 with 1 refill Xanax 1.5 mg daily plan to taper off- sent 05/20/24 with 1 refill 3. recurrent major depression- discuss and educated on medication options ABILIFY 5 mg bedtime- sent 90 days 05/20/24 educated on all rx, benefits, side effects and risk Second generation antipsychotics (SGAs) have metabolic syndrome issues with weight gain, increase in prolactin, increased waist circumference, increased lipids, and increased glucose. Thus routine monitoring of weight, metabolic labs, etc. is indicated. A general rank ordering of antipsychotics that have the greatest to the least risk of metabolic effects is olanzapine, quetiapine, risperidone, ziprasidone, and aripiprazole. However, weight gain can occur with all of these drugs and considerable variability exists among patients receiving the same drug regarding the risk of metabolic effects. Anti-psychotic agents not only increase the risk of metabolic disorder, they also increase the risk of CVA, akathisia, and movement disorders including EPS or tardive dyskinesia (more common with first generation antipsychotics) and more. 4. Long-term drug therapy 11/17/2024 Panic disorder [episodic paroxysmal anxiety] without agoraphobia (ICD-10 - F41.0) Panic Attacks: Care Instructions material was published, Panic Attacks: Care Instructions material was published 1. Generalized anxiety disorder - (hx paxil 20 mg BID - r/t agitated and trouble sleeping) discuss and educated on all rx- educated and discuss changes to rx to help depression, anxiety, panic Zoloft 150 mg daily discuss and educated on not having 2 benzo and finding time for self and , and educated on ways to reduce stress and relaxation. discuss and educated on Buspar, Propanolol, Clonidine for anxiety - patient reported hx Buspar did not help continue therapy and work on coping skills, anxiety, worries, panic, depression, no early refills on control substance local pharmacy in [facility] ud educated on all medications, benefits, side effects and risk, and educated on depression, anxiety, and mood d/o and educated on compliance of medications, metabolic and movement d/o education appointment is, continue therapy discussion with patient about course of treatment and patient instructions. education on serotonin syndrome SSRI/SNRI side effects discussed including but not limited to, gastric upset, nausea, vomiting, diarrhea and/or constipation, weight changes, sexual side effects including loss of libido, increased suicidal thoughts/behavior s in children and young adults, and serotonin syndrome. Discussed and educated pt regarding benzodiazepines are generally not intended for prolonged use and that use can cause tolerance, dependence, depression, and associated memory issues including dementias (this list is not exhaustive). Benzodiazepine use is generally not recommended concurrently with pain medications and/or other controlled substances due to increased risks of profound sedation, respiratory depression, coma, and even . They are not to be used with any alcohol, as this combination can also be lethal. Patient was provided caution 2. Panic disorder -obtain labs PCP OBTAIN RECORDS Dr. Kurtz office refer to therapy- coping skills D/C Clonazepam 1 mg three a day- patient will take rx to pharmacy to discard rx has at home Add Xanax 1 mg three times a day 3. recurrent major depression- discuss and educated on medication options Add Seroquel 50 mg at bedtime for 1 week then increase to Seroquel 100 mg bedtime - For depression, anxiety and agitation help sleep D/C ABILIFY 5 mg bedtime- educated on all rx, benefits, side effects and risk Second generation antipsychotics (SGAs) have metabolic syndrome issues with weight gain, increase in prolactin, increased waist circumference, increased lipids, and increased glucose. Thus routine monitoring of weight, metabolic labs, etc. is indicated. A general rank ordering of antipsychotics that have the greatest to the least risk of metabolic effects is olanzapine, quetiapine, risperidone, ziprasidone, and aripiprazole. However, weight gain can occur with all of these drugs and considerable variability exists among patients receiving the same drug regarding the risk of metabolic effects. Anti-psychotic agents not only increase the risk of metabolic disorder, they also increase the risk of CVA, akathisia, and movement disorders including EPS or tardive dyskinesia (more common with first generation antipsychotics) and more. 4. Insomnia sleep hygiene discuss sleep study options Long-term drug therapy 10/31/2024 MDD (major depressive disorder), recurrent episode, moderate (ICD-10 - F33.1) 1. Generalized anxiety disorder - (hx paxil 20 mg BID - r/t agitated and trouble sleeping) discuss and educated on all rx- educated and discuss changes to rx to help depression, anxiety, panic Zoloft 150 mg daily discuss and educated on not having 2 benzo and finding time for self and , and educated on ways to reduce stress and relaxation. Clonazepam 1 mg three a day- discuss and educated on Buspar, Propanolol, Clonidine for anxiety - patient reported hx Buspar did not help Add Propanolol 10 mg daily as needed for anxiety and panic monitor B/P Patient stopped Vistaril - fatigue continue therapy and work on coping skills, anxiety, worries, panic, depression, no early refills on control substance local pharmacy in [facility] ud educated on all medications, benefits, side effects and risk, and educated on depression, anxiety, and mood d/o and educated on compliance of medications, metabolic and movement d/o education appointment is, continue therapy discussion with patient about course of treatment and patient instructions. education on serotonin syndrome SSRI/SNRI side effects discussed including but not limited to, gastric upset, nausea, vomiting, diarrhea and/or constipation, weight changes, sexual side effects including loss of libido, increased suicidal thoughts/behavior s in children and young adults, and serotonin syndrome. Discussed and educated pt regarding benzodiazepines are generally not intended for prolonged use and that use can cause tolerance, dependence, depression, and associated memory issues including dementias (this list is not exhaustive). Benzodiazepine use is generally not recommended concurrently with pain medications and/or other controlled substances due to increased risks of profound sedation, respiratory depression, coma, and even . They are not to be used with any alcohol, as this combination can also be lethal. Patient was provided caution 2. Panic disorder -obtain labs PCP OBTAIN RECORDS Dr. Kurtz office refer to therapy- coping skills Clonazepam 1 mg three a day 3. recurrent major depression- discuss and educated on medication options ABILIFY 5 mg bedtime- educated on all rx, benefits, side effects and risk Second generation antipsychotics (SGAs) have metabolic syndrome issues with weight gain, increase in prolactin, increased waist circumference, increased lipids, and increased glucose. Thus routine monitoring of weight, metabolic labs, etc. is indicated. A general rank ordering of antipsychotics that have the greatest to the least risk of metabolic effects is olanzapine, quetiapine, risperidone, ziprasidone, and aripiprazole. However, weight gain can occur with all of these drugs and considerable variability exists among patients receiving the same drug regarding the risk of metabolic effects. Anti-psychotic agents not only increase the risk of metabolic disorder, they also increase the risk of CVA, akathisia, and movement disorders including EPS or tardive dyskinesia (more common with first generation antipsychotics) and more. 4. Insomnia sleep hygiene discuss sleep study options Long-term drug therapy 12/22/2024 Panic disorder [episodic paroxysmal anxiety] without agoraphobia (ICD-10 - F41.0) Panic Attacks: Care Instructions material was published, Panic Attacks: Care Instructions material was published 1. Generalized anxiety disorder - (hx paxil 20 mg BID - r/t agitated and trouble sleeping) discuss and educated on all rx- educated and discuss changes to rx to help depression, anxiety, panic Zoloft 150 mg daily discuss and educated on not having 2 benzo and finding time for self and , and educated on ways to reduce stress and relaxation. discuss and educated on Buspar, Propanolol, Clonidine for anxiety - patient reported hx Buspar did not help continue therapy and work on coping skills, anxiety, worries, panic, depression, no early refills on control substance local pharmacy in [facility] educated on all medications, benefits, side effects and risk, and educated on depression, anxiety, and mood d/o and educated on compliance of medications, metabolic and movement d/o education appointment is, continue therapy discussion with patient about course of treatment and patient instructions. education on serotonin syndrome SSRI/SNRI side effects discussed including but not limited to, gastric upset, nausea, vomiting, diarrhea and/or constipation, weight changes, sexual side effects including loss of libido, increased suicidal thoughts/behavior s in children and young adults, and serotonin syndrome. Discussed and educated pt regarding benzodiazepines are generally not intended for prolonged use and that use can cause tolerance, dependence, depression, and associated memory issues including dementias (this list is not exhaustive). Benzodiazepine use is generally not recommended concurrently with pain medications and/or other controlled substances due to increased risks of profound sedation, respiratory depression, coma, and even . They are not to be used with any alcohol, as this combination can also be lethal. Patient was provided caution 2. Panic disorder - labs PCP refer to therapy- coping skills Xanax 1 mg three times a day 3. major depression- discuss and educated on medication options Seroquel 100 mg bedtime - For depression, anxiety and agitation help sleep educated on all rx, benefits, side effects and risk Second generation antipsychotics (SGAs) have metabolic syndrome issues with weight gain, increase in prolactin, increased waist circumference, increased lipids, and increased glucose. Thus routine monitoring of weight, metabolic labs, etc. is indicated. A general rank ordering of antipsychotics that have the greatest to the least risk of metabolic effects is olanzapine, quetiapine, risperidone, ziprasidone, and aripiprazole. However, weight gain can occur with all of these drugs and considerable variability exists among patients receiving the same drug regarding the risk of metabolic effects. Anti-psychotic agents not only increase the risk of metabolic disorder, they also increase the risk of CVA, akathisia, and movement disorders including EPS or tardive dyskinesia (more common with first generation antipsychotics) and more. 4. 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 Generalized anxiety disorder - (hx paxil 20 mg BID - r/t agitated and trouble sleeping) discuss and educated on all rx- educated and discuss changes to rx to help depression, anxiety, panic Zoloft 150 mg daily discuss and educated on not having 2 benzo and finding time for self and , and educated on ways to reduce stress and relaxation. discuss and educated on Buspar, Propanolol, Clonidine for anxiety - patient reported hx Buspar did not help continue therapy and work on coping skills, anxiety, worries, panic, depression, no early refills on control substance local pharmacy in [facility] educated on all medications, benefits, side effects and risk, and educated on depression, anxiety, and mood d/o and educated on compliance of medications, metabolic and movement d/o education appointment is, continue therapy discussion with patient about course of treatment and patient instructions. education on serotonin syndrome SSRI/SNRI side effects discussed including but not limited to, gastric upset, nausea, vomiting, diarrhea and/or constipation, weight changes, sexual side effects including loss of libido, increased suicidal thoughts/behavior s in children and young adults, and serotonin syndrome. Discussed and educated pt regarding benzodiazepines are generally not intended for prolonged use and that use can cause tolerance, dependence, depression, and associated memory issues including dementias (this list is not exhaustive). Benzodiazepine use is generally not recommended concurrently with pain medications and/or other controlled substances due to increased risks of profound sedation, respiratory depression, coma, and even . They are not to be used with any alcohol, as this combination can also be lethal. Patient was provided caution 2. Panic disorder - labs PCP refer to therapy- coping skills Xanax 1 mg three times a day 3. major depression- discuss and educated on medication options Seroquel 100 mg bedtime - For depression, anxiety and agitation help sleep educated on all rx, benefits, side effects and risk Second generation antipsychotics (SGAs) have metabolic syndrome issues with weight gain, increase in prolactin, increased waist circumference, increased lipids, and increased glucose. Thus routine monitoring of weight, metabolic labs, etc. is indicated. A general rank ordering of antipsychotics that have the greatest to the least risk of metabolic effects is olanzapine, quetiapine, risperidone, ziprasidone, and aripiprazole. However, weight gain can occur with all of these drugs and considerable variability exists among patients receiving the same drug regarding the risk of metabolic effects. Anti-psychotic agents not only increase the risk of metabolic disorder, they also increase the risk of CVA, akathisia, and movement disorders including EPS or tardive dyskinesia (more common with first generation antipsychotics) and more. 4. Insomnia sleep hygiene discuss sleep study options Long-term drug therapy 10/31/2024 Panic disorder [episodic paroxysmal anxiety] without agoraphobia (ICD-10 - F41.0) Panic Attacks: Care Instructions material was published, Panic Attacks: Care Instructions material was published 1. Generalized anxiety disorder - (hx paxil 20 mg BID - r/t agitated and trouble sleeping) discuss and educated on all rx- educated and discuss changes to rx to help depression, anxiety, panic Zoloft 150 mg daily discuss and educated on not having 2 benzo and finding time for self and , and educated on ways to reduce stress and relaxation. Clonazepam 1 mg three a day- discuss and educated on Buspar, Propanolol, Clonidine for anxiety - patient reported hx Buspar did not help Add Propanolol 10 mg daily as needed for anxiety and panic monitor B/P Patient stopped Vistaril - fatigue continue therapy and work on coping skills, anxiety, worries, panic, depression, no early refills on control substance local pharmacy in [facility] uds educated on all medications, benefits, side effects and risk, and educated on depression, anxiety, and mood d/o and educated on compliance of medications, metabolic and movement d/o education appointment is, continue therapy discussion with patient about course of treatment and patient instructions. education on serotonin syndrome SSRI/SNRI side effects discussed including but not limited to, gastric upset, nausea, vomiting, diarrhea and/or constipation, weight changes, sexual side effects including loss of libido, increased suicidal thoughts/behavior s in children and young adults, and serotonin syndrome. Discussed and educated pt regarding benzodiazepines are generally not intended for prolonged use and that use can cause tolerance, dependence, depression, and associated memory issues including dementias (this list is not exhaustive). Benzodiazepine use is generally not recommended concurrently with pain medications and/or other controlled substances due to increased risks of profound sedation, respiratory depression, coma, and even . They are not to be used with any alcohol, as this combination can also be lethal. Patient was provided caution 2. Panic disorder -obtain labs PCP OBTAIN RECORDS Dr. Kurtz office refer to therapy- coping skills Clonazepam 1 mg three a day 3. recurrent major depression- discuss and educated on medication options ABILIFY 5 mg bedtime- educated on all rx, benefits, side effects and risk Second generation antipsychotics (SGAs) have metabolic syndrome issues with weight gain, increase in prolactin, increased waist circumference, increased lipids, and increased glucose. Thus routine monitoring of weight, metabolic labs, etc. is indicated. A general rank ordering of antipsychotics that have the greatest to the least risk of metabolic effects is olanzapine, quetiapine, risperidone, ziprasidone, and aripiprazole. However, weight gain can occur with all of these drugs and considerable variability exists among patients receiving the same drug regarding the risk of metabolic effects. Anti-psychotic agents not only increase the risk of metabolic disorder, they also increase the risk of CVA, akathisia, and movement disorders including EPS or tardive dyskinesia (more common with first generation antipsychotics) and more. 4. 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 Generalized anxiety disorder - (hx paxil 20 mg BID - r/t agitated and trouble sleeping) discuss and educated on all rx- educated and discuss changes to rx to help depression, anxiety, panic Zoloft 150 mg daily discuss and educated on not having 2 benzo and finding time for self and , and educated on ways to reduce stress and relaxation. discuss and educated on Buspar, Propanolol, Clonidine for anxiety - patient reported hx Buspar did not help continue therapy and work on coping skills, anxiety, worries, panic, depression, no early refills on control substance local pharmacy in [facility] educated on all medications, benefits, side effects and risk, and educated on depression, anxiety, and mood d/o and educated on compliance of medications, metabolic and movement d/o education appointment is, continue therapy discussion with patient about course of treatment and patient instructions. education on serotonin syndrome SSRI/SNRI side effects discussed including but not limited to, gastric upset, nausea, vomiting, diarrhea and/or constipation, weight changes, sexual side effects including loss of libido, increased suicidal thoughts/behavior s in children and young adults, and serotonin syndrome. Discussed and educated pt regarding benzodiazepines are generally not intended for prolonged use and that use can cause tolerance, dependence, depression, and associated memory issues including dementias (this list is not exhaustive). Benzodiazepine use is generally not recommended concurrently with pain medications and/or other controlled substances due to increased risks of profound sedation, respiratory depression, coma, and even . They are not to be used with any alcohol, as this combination can also be lethal. Patient was provided caution 2. Panic disorder -obtain labs PCP OBTAIN RECORDS Dr. Kurtz office refer to therapy- coping skills D/C Clonazepam 1 mg three a day- patient will take rx to pharmacy to discard rx has at home Add Xanax 1 mg three times a day 3. recurrent major depression- discuss and educated on medication options Add Seroquel 50 mg at bedtime for 1 week then increase to Seroquel 100 mg bedtime - For depression, anxiety and agitation help sleep D/C ABILIFY 5 mg bedtime- educated on all rx, benefits, side effects and risk Second generation antipsychotics (SGAs) have metabolic syndrome issues with weight gain, increase in prolactin, increased waist circumference, increased lipids, and increased glucose. Thus routine monitoring of weight, metabolic labs, etc. is indicated. A general rank ordering of antipsychotics that have the greatest to the least risk of metabolic effects is olanzapine, quetiapine, risperidone, ziprasidone, and aripiprazole. However, weight gain can occur with all of these drugs and considerable variability exists among patients receiving the same drug regarding the risk of metabolic effects. Anti-psychotic agents not only increase the risk of metabolic disorder, they also increase the risk of CVA, akathisia, and movement disorders including EPS or tardive dyskinesia (more common with first generation antipsychotics) and more. 4. Insomnia sleep hygiene discuss sleep study options Long-term drug therapy 10/31/2024 Other assisted (current) drug therapy (ICD-10 - Z79.899) Medication Refill: Care Instructions material was published, Medication Refill: Care Instructions material was published 1. Generalized anxiety disorder - (hx paxil 20 mg BID - r/t agitated and trouble sleeping) discuss and educated on all rx- educated and discuss changes to rx to help depression, anxiety, panic Zoloft 150 mg daily discuss and educated on not having 2 benzo and finding time for self and , and educated on ways to reduce stress and relaxation. Clonazepam 1 mg three a day- discuss and educated on Buspar, Propanolol, Clonidine for anxiety - patient reported hx Buspar did not help Add Propanolol 10 mg daily as needed for anxiety and panic monitor B/P Patient stopped Vistaril - fatigue continue therapy and work on coping skills, anxiety, worries, panic, depression, no early refills on control substance local pharmacy in [facility] educated on all medications, benefits, side effects and risk, and educated on depression, anxiety, and mood d/o and educated on compliance of medications, metabolic and movement d/o education appointment is, continue therapy discussion with patient about course of treatment and patient instructions. education on serotonin syndrome SSRI/SNRI side effects discussed including but not limited to, gastric upset, nausea, vomiting, diarrhea and/or constipation, weight changes, sexual side effects including loss of libido, increased suicidal thoughts/behavior s in children and young adults, and serotonin syndrome. Discussed and educated pt regarding benzodiazepines are generally not intended for prolonged use and that use can cause tolerance, dependence, depression, and associated memory issues including dementias (this list is not exhaustive). Benzodiazepine use is generally not recommended concurrently with pain medications and/or other controlled substances due to increased risks of profound sedation, respiratory depression, coma, and even . They are not to be used with any alcohol, as this combination can also be lethal. Patient was provided caution 2. Panic disorder -obtain labs PCP OBTAIN RECORDS Dr. Kurtz office refer to therapy- coping skills Clonazepam 1 mg three a day 3. recurrent major depression- discuss and educated on medication options ABILIFY 5 mg bedtime- educated on all rx, benefits, side effects and risk Second generation antipsychotics (SGAs) have metabolic syndrome issues with weight gain, increase in prolactin, increased waist circumference, increased lipids, and increased glucose. Thus routine monitoring of weight, metabolic labs, etc. is indicated. A general rank ordering of antipsychotics that have the greatest to the least risk of metabolic effects is olanzapine, quetiapine, risperidone, ziprasidone, and aripiprazole. However, weight gain can occur with all of these drugs and considerable variability exists among patients receiving the same drug regarding the risk of metabolic effects. Anti-psychotic agents not only increase the risk of metabolic disorder, they also increase the risk of CVA, akathisia, and movement disorders including EPS or tardive dyskinesia (more common with first generation antipsychotics) and more. 4. Insomnia sleep hygiene discuss sleep study options Long-term drug therapy 12/22/2024 Negative depression screening (ICD-10 - Z13.31) 1. Generalized anxiety disorder - (hx paxil 20 mg BID - r/t agitated and trouble sleeping) discuss and educated on all rx- educated and discuss changes to rx to help depression, anxiety, panic Zoloft 150 mg daily discuss and educated on not having 2 benzo and finding time for self and , and educated on ways to reduce stress and relaxation. discuss and educated on Buspar, Propanolol, Clonidine for anxiety - patient reported hx Buspar did not help continue therapy and work on coping skills, anxiety, worries, panic, depression, no early refills on control substance local pharmacy in [facility] uds educated on all medications, benefits, side effects and risk, and educated on depression, anxiety, and mood d/o and educated on compliance of medications, metabolic and movement d/o education appointment is, continue therapy discussion with patient about course of treatment and patient instructions. education on serotonin syndrome SSRI/SNRI side effects discussed including but not limited to, gastric upset, nausea, vomiting, diarrhea and/or constipation, weight changes, sexual side effects including loss of libido, increased suicidal thoughts/behavior s in children and young adults, and serotonin syndrome. Discussed and educated pt regarding benzodiazepines are generally not intended for prolonged use and that use can cause tolerance, dependence, depression, and associated memory issues including dementias (this list is not exhaustive). Benzodiazepine use is generally not recommended concurrently with pain medications and/or other controlled substances due to increased risks of profound sedation, respiratory depression, coma, and even . They are not to be used with any alcohol, as this combination can also be lethal. Patient was provided caution 2. Panic disorder - labs PCP refer to therapy- coping skills Xanax 1 mg three times a day 3. major depression- discuss and educated on medication options Seroquel 100 mg bedtime - For depression, anxiety and agitation help sleep educated on all rx, benefits, side effects and risk Second generation antipsychotics (SGAs) have metabolic syndrome issues with weight gain, increase in prolactin, increased waist circumference, increased lipids, and increased glucose. Thus routine monitoring of weight, metabolic labs, etc. is indicated. A general rank ordering of antipsychotics that have the greatest to the least risk of metabolic effects is olanzapine, quetiapine, risperidone, ziprasidone, and aripiprazole. However, weight gain can occur with all of these drugs and considerable variability exists among patients receiving the same drug regarding the risk of metabolic effects. Anti-psychotic agents not only increase the risk of metabolic disorder, they also increase the risk of CVA, akathisia, and movement disorders including EPS or tardive dyskinesia (more common with first generation antipsychotics) and more. 4. Insomnia sleep hygiene discuss sleep study options Long-term drug therapy 01/26/2024 Other Sertraline Oral Tablet (SERTRALINE - ORAL) material was published, Clonazepam Oral Tablet (CLONAZEPAM - ORAL) material was published, Alprazolam Oral Tablet (ALPRAZOLAM - ORAL) material was published 1. Generalized anxiety disorder - (hx paxil 20 mg BID - r/t agitated and trouble sleeping) discuss and educated on Zoloft - will increase Zoloft 75 mg daily for depression and anxiety Clonazepam 1 mg twice a day- am and bedtime- plan to change to three times a day in near future when off Xanax Xanax 2 mg daily in afternoon- for panic attacks - discuss may slow decrease in near future and plan to be on 1 benzo no early refills on control [facility]ocal pharmacy in [facility] educated on all rx and not to take Xanax and Clonazepam together patient would like tele visit related to anxiety/panic educated on all medications, benefits, side effects and risk, and educated on depression, anxiety, and mood d/o and educated on compliance of medications, metabolic and movement d/o education appointment is, continue therapy discussion with patient about course of treatment and patient instructions. education on serotonin syndrome SSRI/SNRI side effects discussed including but not limited to, gastric upset, nausea, vomiting, diarrhea and/or constipation, weight changes, sexual side effects including loss of libido, increased suicidal thoughts/behavior s in children and young adults, and serotonin syndrome. Discussed and educated pt regarding benzodiazepines are generally not intended for prolonged use and that use can cause tolerance, dependence, depression, and associated memory issues including dementias (this list is not exhaustive). Benzodiazepine use is generally not recommended concurrently with pain medications and/or other controlled substances due to increased risks of profound sedation, respiratory depression, coma, and even . They are not to be used with any alcohol, as this combination can also be lethal. Patient was provided caution F41.1: Generalized anxiety disorder alprazolam 2 mg tablet - Take 1 tablet(s) every day by oral route as directed for 30 days. Qty: (30) tablet Refills: 0 Pharmacy: [facility] [id number] clonazepam 1 mg tablet - Take 1 tablet(s) twice a day by oral route as directed for 30 days. Qty: (60) tablet Refills: 0 Pharmacy: [facility] [facility] [id number] sertraline 50 mg tablet - Take 1 tablet(s) every day by oral route in the morning for 14 days. Qty: (30 tablet Refills: 2 Pharmacy: [facility] [id number] Note to Pharmacy: total 75 mg sertraline 25 mg tablet - Take 1 tablet(s) every day by oral route in the morning for 30 days. Qty: (30) tablet Refills: 2 Pharmacy: [facility] [facility] [id number] Note to Pharmacy: total 75 mg 2. Panic disorder -obtain labs PCP OBTAIN RECORDS Dr. Kurtz office refer to therapy Zoloft Clonazepam 1 mg twice a day Xanax 2 mg daily F41.0: Panic disorder [episodic paroxysmal anxiety] 3. Mild recurrent major depression 4. Long-term drug therapy 05/09/2024 Other Preventing Depression From Coming Back: Care Instructions material was published, Learning About Depression material was published, Depression Treatment: Care Instructions material was published, Aripiprazole Oral Tablet 5 mg (ARIPIPRAZOLE - ORAL) material was published, Sertraline Oral Tablet (SERTRALINE - ORAL) material was published 1. Generalized anxiety disorder - (hx paxil 20 mg BID - r/t agitated and trouble sleeping) discuss and educated on Zoloft - Zoloft 100 mg daily for depression and anxiety- rx sent 05/09/24 # 90 Clonazepam 1 mg twice a day- am and bedtime- no refill due today scheduled 05/20/24 plan to change to three times a day in near future when off Xanax- IF NEEDED TO INCREASE Clonazepam Xanax 1.5 mg daily in afternoon- for panic attacks - discuss slow decrease and plan to be on 1 benzo- discuss GDR- no refill given 05/09/24 no early refills on [facility] educated on all rx and not to take Xanax and Clonazepam together patient would like tele visit related to anxiety/panic educated on all medications, benefits, side effects and risk, and educated on depression, anxiety, and mood d/o and educated on compliance of medications, metabolic and movement d/o education appointment is, continue therapy discussion with patient about course of treatment and patient instructions. education on serotonin syndrome SSRI/SNRI side effects discussed including but not limited to, gastric upset, nausea, vomiting, diarrhea and/or constipation, weight changes, sexual side effects including loss of libido, increased suicidal thoughts/behavior s in children and young adults, and serotonin syndrome. Discussed and educated pt regarding benzodiazepines are generally not intended for prolonged use and that use can cause tolerance, dependence, depression, and associated memory issues including dementias (this list is not exhaustive). Benzodiazepine use is generally not recommended concurrently with pain medications and/or other controlled substances due to increased risks of profound sedation, respiratory depression, coma, and even . They are not to be used with any alcohol, as this combination can also be lethal. Patient was provided caution 2. Panic disorder -obtain labs PCP OBTAIN RECORDS Dr. Kurtz office refer to therapy- APRIL Patient will see if afford Zoloft 100 mg daily Clonazepam 1 mg twice a day Xanax 1.5 mg daily plan to taper off 3. recurrent major depression- severe - discuss and educated on medication options Will add ABILIFY 2.5 MG AT BEDTIME for 1 week then increase Abilify 5 mg bedtime educated on all rx, benefits, side effects and risk 4. Long-term drug therapy 10/10/2024 Other Learning About Depression Screening material was published, Learning About Depression material was published, Learning About Mood Disorders material was published, Learning About How to Get Help During a Mental Health Crisis material was published, Depression Treatment: Care Instructions material was published 1. Generalized anxiety disorder - (hx paxil 20 mg BID - r/t agitated and trouble sleeping) discuss and educated on all rx- educated and discuss changes to rx to help depression, anxiety, panic Increase Zoloft 100 mg daily for 2 weeks then increase Zoloft 150 mg daily Increase Clonazepam 1 mg three a day- refill discuss decrease Xanax 0.5 mg daily once a day for next 2 week then stop continue therapy and work on coping skills, anxiety, worries, panic, depression, no early refills on control substance local pharmacy in [facility] educated on all rx and not to take Xanax and Clonazepam together patient would like tele visit related if anxiety/panic educated on all medications, benefits, side effects and risk, and educated on depression, anxiety, and mood d/o and educated on compliance of medications, metabolic and movement d/o education appointment is, continue therapy discussion with patient about course of treatment and patient instructions. education on serotonin syndrome SSRI/SNRI side effects discussed including but not limited to, gastric upset, nausea, vomiting, diarrhea and/or constipation, weight changes, sexual side effects including loss of libido, increased suicidal thoughts/behavior s in children and young adults, and serotonin syndrome. Discussed and educated pt regarding benzodiazepines are generally not intended for prolonged use and that use can cause tolerance, dependence, depression, and associated memory issues including dementias (this list is not exhaustive). Benzodiazepine use is generally not recommended concurrently with pain medications and/or other controlled substances due to increased risks of profound sedation, respiratory depression, coma, and even . They are not to be used with any alcohol, as this combination can also be lethal. Patient was provided caution 2. Panic disorder -obtain labs PCP OBTAIN RECORDS Dr. Kurtz office refer to therapy- APRIL Patient will see if afford- patient will schedule appt APRIL Clonazepam 1 mg three a day Xanax 0.5 mg once a day for 2 weeks then stop- 3. recurrent major depression- discuss and educated on medication options ABILIFY 5 mg bedtime- educated on all rx, benefits, side effects and risk Second generation antipsychotics (SGAs) have metabolic syndrome issues with weight gain, increase in prolactin, increased waist circumference, increased lipids, and increased glucose. Thus routine monitoring of weight, metabolic labs, etc. is indicated. A general rank ordering of antipsychotics that have the greatest to the least risk of metabolic effects is olanzapine, quetiapine, risperidone, ziprasidone, and aripiprazole. However, weight gain can occur with all of these drugs and considerable variability exists among patients receiving the same drug regarding the risk of metabolic effects. Anti-psychotic agents not only increase the risk of metabolic disorder, they also increase the risk of CVA, akathisia, and movement disorders including EPS or tardive dyskinesia (more common with first generation antipsychotics) and more. 4. Insomnia sleep hygiene discuss sleep study options Long-term drug therapy Plan Of Treatment Next Appt Details Provider Name:Nae Jett , 03/16/2025 09:15:00 AM, [address], [facility] [address], [place], [address], Insurance Providers Payer Name Payer Address Payer Phone Subscriber Number Group Number Insured Name Patient Relationship to Insured Coverage Start Date Coverage End Date [facility] [address] [place] [phone] [id number] DALILA BENITEZ Self - patient is the insured Medical (General) History Medical History History ICD Code Problems: Generalized anxiety disorder Long-term drug therapy Mild recurrent major depression Panic disorder , Surgical History Surgery Date(Month/Year) Hysterectomy (93432) 07/11/2014 Tonsilectomy/adenoids 08/17/1975 Any surgical history 12/18/2018 gall bladder 02/26
--- OUTSIDE RECORDS SUMMARY | 2025-01-15 11:22 | XMS_ITS | Continuity of Care Document ---
Author Organization [facility] Address [address] [facility] [place] [address] [place] [address] Phone Care Team Providers Care Plate Glass Installer Name Role Phone Sean Willis MD Unavailable Unavailable Advance Directives Directive Yes / No Effective Date File Name No Information Encounters Encounter Description Practice Location Reason(s) For Visit Diagnoses Date Provider Providers Copied on Encounter [facility], [address] [place], [id number], [place] tel:[phone] [facility] No Information Lazaro Estrada. [address] [place], [place], [id number], [place]. tel:[phone] Family History Family Member Type Diagnosis Age At Onset No Information Payers Payer name Insurance type Covered libertarian ID Authoriza tion(s) No Information Social History Type Description Quantity Date Captured Comments Sex Female Smoking Status No Information Chief Complaint And Reason For Visit No Information Plan Of Treatment Date Type Action Status No Information History Of Present Illness Encounter Date Complaint History Of Prese nt Illness No Information Instructions Date Instruction Additional Infor mation No Information Assessments Type Assessment Date No Information
--- OUTSIDE RECORDS SUMMARY | 2025-01-15 11:23 | XMS_ITS | Continuity of Care Document ---
Author Organization [facility] Address [address] [facility] [place] [address] [place] [address] Phone Care Team Providers Care Sound Assistant Name Role Phone Sean Willis MD Unavailable Unavailable Advance Directives Directive Yes / No Effective Date File Name No Information Encounters Encounter Description Practice Location Reason(s) For Visit Diagnoses Date Provider Providers Copied on Encounter [facility], [address] [place], [id number], [place] tel:[phone] [facility] No Information Lazaro Estrada. [address] [place], [place], [address], [place]. tel:[phone] Family History Family Member Type Diagnosis Age At Onset No Information Payers Payer name Insurance type Covered constitution party ID Authoriza tion(s) No Information Social History [...]
--- NOTE | 2025-01-15 11:24 | ED.GENADULT ---
HPI - General Adult General Chief complaint: Neck Pain/Injury Stated complaint: pain down right arm/ears/dizzy Time Seen by Provider: 01/15/25 11:25 Source: patient Mode of arrival: ambulatory Limitations: no limitations History of Present Illness HPI narrative: 59-year-old female patient presents to [facility] complaints of pain from her right-sided neck that radiates down the right arm. Patient also complaining that she has been having pain to the right ear and some dizziness at times. Denies chest pain or shortness of breath. States she saw her primary doctor a couple weeks ago was prescribed muscle relaxants for the arm pain but states she took them a couple times and never saw improvement. Patient states she had COVID about 6 weeks ago was not treated with antivirals and just took some ibuprofen and [id number] cough and cold medicine. Patient denies being on any vitamins including vitamin-C vitamin D, zinc or any other immune views boosting vitamins. Patient is an active smoker and vapes. 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 Related Data Home Medications ?Medication ?Instructions ?Recorded ?Confirmed ?Last Taken ?Type clonazepam 1 mg tablet 1 mg PO BID 10/31/21 12/08/22 11/04/21 History estradiol 2 mg tablet 2 mg PO DAILY 10/31/21 12/08/22 11/04/21 History aspirin 81 mg tablet,delayed 81 mg PO DAILY 11/12/21 12/08/22 Unknown History release (Adult Aspirin Regimen) alprazolam 1 mg tablet (Xanax) 1.5 mg PO DAILY 10/21/22 12/08/22 Unknown History sertraline 25 mg tablet mg 02/11/24 Unknown History Allergies Allergy/AdvReac Type Severity Reaction Status Date / Time tramadol Allergy Unknown Verified 01/15/25 11:30 fentanyl AdvReac Mild Nausea and Verified 07/04/24 11:11 Vomiting azithromycin (From Zithromax) AdvReac Other Verified 07/04/24 11:11 Review of Systems Review of Systems: CONSTITUTIONAL: Denies fever, chills, or sweats. EYES: Denies visual changes, redness, or discharge. ENT: Denies rhinorrhea, congestion, sore throat, Positive right otalgia. CARDIOVASCULAR: Denies chest pain, palpitations, or edema. RESPIRATORY: Denies cough or dyspnea. GASTROINTESTINAL: Denies abdominal pain, nausea, vomiting, or diarrhea. GENITOURINARY: Denies dysuria or hematuria. SKIN: Denies rash or itching. MUSCULOSKELETAL: Denies back pain, joint pain, or myalgia. positive right-sided neck pain that radiates to the right arm. NEUROLOGIC: Denies headache, numbness, or weakness. Positive feelings of dizziness PSYCHIATRIC: Denies anxiety or depression. [facility] Past Medical History Medical History Anal skin tag Diverticulosis Chronic insomnia [place] (generalized anxiety disorder) Depression Paroxysmal SVT (supraventricular tachycardia) Surgical History Surgical History H/O hysterectomy with unilateral oophorectomy History of tonsillectomy History of cardiac radiofrequency ablation History of loop recorder Social History Social History Social History: Smoking status: Current some day smoker Tobacco type: e-cigarettes/vaping Second hand tobacco smoke exposure: No Alcohol intake: never Substance use: never Substance use type: does not use Living arrangements: with family Occupation/Education: unemployed Gender identity (if verbalized by the patient): Female Sexual Orientation (if Verbalized by the Patient): Straight or Heterosexual Spiritual care concerns: No Comments At the time of my signature I agree with nursing past medical history, surgical, social, and family history. There is no relevant family history pertinent to the presenting complaint. Exam Narrative: GENERAL: Well-appearing, well-nourished, and in no acute distress. HEAD: Normocephalic, atraumatic. EYES: PERRLA and EOMI. ENT: Nares clear, no rhinorrhea or epistaxis. Mucous membranes moist. Posterior pharynx with no erythema, tonsillar enlargement, exudates or lesions. The right TM does have some obvious fluid noted behind it. No erythema, bulging or infectious disease noted at this time. NECK: Supple. No lymphadenopathy . Patient does have an obvious muscle spasm noted along the scapula area on the right side of the neck. Weighing a it is palpated and pressure is applied does reproduce the pain shoots down the arm. Patient has excellent range of motion of the shoulder and neck. CHEST: Clear to auscultation. No respiratory distress. HEART: Regular rate and rhythm. No murmur heard. Normal peripheral pulses. ABDOMEN: Soft, nontender, nondistended, normal active bowel sounds. EXTREMITIES: Normal range of motion. No edema. SKIN: Warm, dry, no rash. NEURO: No focal deficits. Alert and oriented x3. Course Course Level of Care: Express Care Visit Vital Signs Vital signs: Vital signs reviewed. Medical Decision Making MDM Narrative Medical decision making narrative: discussed with patient that her neck pain and radiating arm pain appears to be due to a muscle spasm that was palpated during exam. Discussed with her that sometimes muscles that spasms can push up against the nerve causing radiating pain down the arm. Patient was prescribed muscle relaxants encouraged patient to continue that and may add on an anti inflammatory something such as naproxen ibuprofen or a tumor [place] that might help with long-term inflammation. Encouraged patient to use ice only no heat and gentle massage. Patient also encouraged to do gentle stretching exercises. Discussed with patient that there was some fluid noted by hind the right ear which definitely could cause the dizziness. Discussed with patient I do not see any active infection at this time but does have the potential to turn into an infection. Discussed with patient I would like her to take an [id number] antihistamine and Flonase to see if we can decrease the fluid behind the ear if there is no improvement in the next 3-4 days she can start an antibiotic to help with the ear pain. The dizziness should resolve however if it does not resolve after these interventions I highly recommend that should go to the ER for further evaluation. An EKG was checked today to look at her heart and there is no concerns at this time. Differential Diagnosis Differential Diagnosis: Differential diagnosis: Otitis media, otitis externa, perforated TM, infection of the outer ear, foreign body or cerumen impaction, ruptured TM, acute mastoiditis, ligament otitis externa, dehydration, pneumonia, sepsis, dental or intraoral infection, TMJ dysfunction Cervical spine injury, muscle strain, spasm, torticollis, ligament injury, fracture, subluxation. ECG Data EKG #1: Interpretation: Sinus bradycardia with sinus arrhythmia. Borderline ECG. Interpretation based on the default age of 41 years. Per report. Vent rate: 53 [place] interval: 132 QRS duration: 89 QT/ QTC: 393/375 P - R- T axes: 83, 58, 67 Critical Care Time Critical Care Time Critical Care Time: No Discharge Plan Discharge Clinical Impression: Muscle spasm of right shoulder, Acute otitis media with effusion of right ear Patient Disposition: Home Condition: Stable Instructions: Antibiotic Form, Spasmodic Torticollis (ED), Muscle Spasm (ED) Additional Instructions: Ice to the right shoulder area for 20-30 minutes Gentle stretching exercises Gentle massage Caution with lifting, bending, stooping, twisting Avoid pushing, pulling take muscle relaxants as directed--caution drowsiness and no driving or alcohol Anti-inflammatory medicine as directed--take with food, may continue taking ibuprofen or naproxen may also try some tumor rec to help with overall inflammation that has less side effects He may take the muscle relaxant and anti-inflammatory at the same time . Follow-up with your PCP if not improving in 5-7 days An ear infection is also called otitis media. An ear infection may be caused by blocked or swollen eustachian tubes. Eustachian tubes connect the middle ear to the back of the nose and throat. They drain fluid from the middle ear. With an ear infection, fluid builds up and is infected by germs. The germs grow easily in fluid trapped behind the eardrum. a wait and see prescription antibiotic was provided to you today but I want you to hold off on that for at least 3-4 days. Please try the disp-[id number] antihistamine and the Flonase to see if you can decrease the fluid behind the ear and improved your dizziness and pain. If this continues to worsen or the symptoms do not improve after 3 or 4 days then please start the antibiotic that was provided. DISCHARGE INSTRUCTIONS: Call 911 or have someone call 911 for the following: You have a seizure. Return to the emergency department if: You have a fever and a stiff neck. Contact your healthcare provider if: Your ear pain gets worse or does not go away, even after treatment. The outside of your ear is red or swollen. You are vomiting or have diarrhea. You have fluid coming from your ear. You have questions or concerns about your condition or care. Medicines: Acetaminophen decreases pain and fever. It is available without a doctor's order. Ask how much to take and how often to take it. Follow directions. Read the labels of all other medicines you are using to see if they also contain acetaminophen, or ask your doctor or pharmacist. Acetaminophen can cause liver damage if not taken correctly. Do not use more than 4 grams (4,000 milligrams) total of acetaminophen in one day. NSAIDs , such as ibuprofen, help decrease swelling, pain, and fever. This medicine is available with or without a doctor's order. NSAIDs can cause stomach bleeding or kidney problems in certain people. If you take blood thinner medicine, always ask your healthcare provider if NSAIDs are safe for you. Always read the medicine label and follow directions. Ear drops help treat your ear pain. Antibiotics help treat a bacterial infection that caused your ear infection. Take your medicine as directed. Contact your healthcare provider if you think your medicine is not helping or if you have side effects. Tell him or her if you are allergic to any medicine. Keep a list of the medicines, vitamins, and herbs you take. Include the amounts, and when and why you take them. Bring the list or the pill bottles to follow-up visits. Carry your medicine list with you in case of an emergency. Prevent an ear infection: Wash your hands often. Use soap and water. Wash your hands after you use the bathroom, change a child's diapers, or sneeze. Wash your hands before you prepare or eat food. Handwashing Stay away from people who are ill. Some germs are easily and quickly spread through contact. Patient Language: Amharic Prescriptions: New cetirizine [Zyrtec] 10 mg tablet 10 mg PO DAILY Qty: 30 0RF fluticasone propionate [Flonase Allergy Relief] 50 mcg/actuation spray,suspension 2 spray NASAL BID Qty: 15.8 0RF Rx Instructions: administer into each nostril amoxicillin-pot clavulanate 875-125 mg tablet 1 tablet PO Q12H 7 Days Qty: 14 0RF No Action clonazepam 1 mg Tablet 1 mg PO BID estradiol 2 mg Tablet 2 mg PO DAILY alprazolam [Xanax] 1 mg tablet 1.5 mg PO DAILY Rx Instructions: takes at around 12-1 amoxicillin 500 mg capsule 500 mg PO TID Qty: 30 0RF sertraline 25 mg tablet aspirin [Adult Aspirin Regimen] 81 mg tablet,delayed release (DR/EC) 81 mg PO DAILY omeprazole 20 mg capsule,delayed release(DR/EC) 20 mg PO DAILY 30 Days Qty: 30 2RF Follow-up/Referrals: Savanna,SARMAD Allen [Primary Care Provider] - Time of Disposition: 11:58
[2025-01-15 11:31] VITALS: BP 136/76; PULSE 70; RESP 16; TEMP 36.6
--- NOTE | 2025-01-15 11:41 | ECG_ITS ---
Test Date: 2025-01-15 11:50:52 Measurements Intervals [place] Rate: 53 P: 83 VT: 132 QRS: 58 QRSD: 89 T: 67 QT: 393 QTc: 369 Interpretive Statements SINUS BRADYCARDIA WITH SINUS ARRHYTHMIA NONSPECIFIC ST T WAVE CHANGES INTERPRETATION BASED ON A DEFAULT AGE OF 40 YEARS No previous ECG available for comparison Electronically Signed On 01-16-2025 15:47:06 CDT by Damion Cueto M.D.
== END 2025-01-15 12:15 | disposition home or self-care (01) ==
PROVIDERS: Emergency Provider Nurse Practitioner Family; PCP Registered Nurse
DX: M62.838 Other muscle spasm (principal); H65.191 Other acute nonsuppurative otitis media, right ear; F17.290 Nicotine dependence, other tobacco product, uncomplicated; F41.1 Generalized anxiety disorder; F32.A Depression, unspecified; Z79.82 Long term (current) use of aspirin
CPT/HCPCS: 93005; 99213; G0463